=== PATIENT | female | born 1930 | race Caucasian/White ===

== ENCOUNTER 2016-07-25 17:17 | Inpatient (IN) | payer OTHER ==
[~2016-07-25] VITALS: Ht 154.9 cm; Wt 68.1 kg
[~2016-07-25 17:17] MED LIST: ACET-1311 PO; ALUMSUS17 PO; ATOR-22 PO; BISA10SU38 PR; CALC-46 PO; CLOP1TAB15 PO; CMD3 PO; CPR500 PO; CRG25 PO; HMLI SQ; INSDGI PO; ISOS-10 PO; LATA0.5S OPB; LCTX PO; LOSA100T65 PO; LSN20 PO; MOML PO; NTRGSL/4 UT; OMEP20CA9 PO
--- NOTE | 2016-07-25 17:25 | EMERGENCY ROOM VISIT NOTE ---
History Report prepared by Danelle: Blanca Cruz Under the Supervision of: Dr. Gerald Solano M.D. First contact with patient: 17:17 Stated Complaint: HYPERGLYCEMIA/AMS, [facility] History of Present Illness The patient is a 86 year old female who presents to the Emergency Room for evaluation of altered mental status. Normal self this morning and interactive however this afternoon found tired and not talking. Coming from [facility]. She was found to have blood sugar of "High" and thus given 4 Units subq insulin. With blood sugars not improving she was sent to ED via EMS for further evaluation. Prior to leaving temperature was noted to be 100.7F. No other medications given. Patient unable to given ROS. No further information available about this event. No treatments en route to hospital. 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 Past Medical & Surgical Medical Problems: (1) Alzheimer disease (2) CAD (coronary artery disease) (3) CHF (congestive heart failure) (4) CKD (chronic kidney disease), stage III (5) CVA (cerebral vascular accident) (6) History of Coumadin therapy (7) HLD (hyperlipidemia) (8) HTN (hypertension) (9) Hypothyroidism (10) IDDM (insulin dependent diabetes mellitus) (11) Pacemaker (12) PAF (paroxysmal atrial fibrillation) Surgical Problems: (1) H/O: hysterectomy (2) History of appendectomy (3) History of back surgery (4) History of cholecystectomy Family History Unobtainable Social History Smoking Status: Never Smoker Alcohol Use: none Housing Status: [facility] Occupation Status: retired Current/Historical Medications Scheduled Alum & Mag Hydrox-Simethicone (Rulox), 2 TBS PO QID Atorvastatin (Lipitor), 20 MG PO QPM Calcium Carbonate-Vitamin D (Oyster Shell Calcium/D), 1 TAB PO DAILY Carvedilol (Carvedilol), 25 MG PO Q12 Cholecalciferol (Vitamin D3), 1,000 INTER.UNIT PO QAM Citalopram Hydrobromide (Celexa), 5 MG PO DAILY Clopidogrel (Plavix), 75 MG PO DAILY Dicyclomine Hcl (Dicyclomine Hcl), 10 MG PO QID Furosemide (Furosemide), 20 MG PO QAM Insulin Aspart (Novolog), 6 UNITS SQ LUNCH Insulin Aspart (Novolog), 4 UNITS SQ BID Insulin Glargine (Lantus), 12 UNITS SQ HS Isosorbide Mononitrate (Isosorbide Mononitrate ER), 60 MG PO QAM Latanoprost (Xalatan 0.005% Oph Patti), 1 DROP OPB QPM Levothyroxine Sodium (Synthroid), 50 MCG PO QAM Lisinopril (Lisinopril), 20 MG PO QAM Loratadine (Claritin), 10 MG PO DAILY Losartan Potassium (Cozaar), 100 MG PO HS Nitroglycerin (Nitrostat), 0.4 MG UT PRN Potassium Chloride (Klor-Con M20), 20 MEQ PO QAM Ranitidine (Zantac), 150 MG PO BID Warfarin Sod (Coumadin), 2 TAB PO DAILY Warfarin Sod (Coumadin), 2.5 MG PO UD Scheduled PRN Acetaminophen (Tylenol), 650 MG PO Q4 PRN for Pain Alum & Mag Hydrox-Simethicone (Maalox Advanced), 30 ML PO ACHS PRN for INDIGESTION Allergies Coded Allergies: Aspirin (Verified Allergy, Intermediate, unknown, 07/25/16) Codeine (Verified Allergy, Intermediate, unknown, 07/25/16) Red Dye (Verified Allergy, Intermediate, unknown, 07/25/16) Yellow Dye (Verified Allergy, Intermediate, unknown, 07/25/16) Adhesives (Verified Allergy, Unknown, TAPE, 07/25/16) Morphine (Unverified Allergy, Unknown, UNKNOWN, 07/25/16) Physical Exam Vital Signs Date Time Temp Pulse Resp B/P Pulse Ox O2 Delivery O2 Flow Rate FiO2 07/25/16 19:03 70 20 209/72 07/25/16 18:31 70 218/175 94 3.0 07/25/16 17:59 197/103 07/25/16 17:47 70 26 07/25/16 17:44 92 Nasal Cannula 3.0 07/25/16 17:44 86 Room Air 07/25/16 17:37 37.5 70 22 192/156 92 Nasal Cannula 3.0 07/25/16 17:31 192/156 07/25/16 17:29 70 Physical Exam GENERAL: Patient is chronically unwell appearing. Looking around room. HEENT: No acute trauma, normocephalic atraumatic, mucous membranes moist, no nasal congestion, no scleral icterus. NECK: No stridor, no adenopathy, no meningismus, trachea is midline. LUNGS: No dyspnea. Clear to auscultation and equal bilaterally. No wheeze, no rhonchi. HEART: Regular rate and rhythm. No murmurs, rubs, gallops appreciated. ABDOMEN: Soft, nontender, bowel sounds positive, no masses appreciated, no peritonitis. BACK: No midline tenderness, no CVA tenderness EXTREMITIES: No cyanosis, no edema other than some lateral right foot/ankle swelling underlying bruising NEUROLOGIC: Appears confused, awake, looking around room, non-verbal, not moving extremities, unable to accurately assess for acute motor or sensory deficits, no focal weakness, cranial nerves grossly intact. SKIN: Bilateral lateral foot bruising, no rash, no jaundice, no diaphoresis. Medical Decision & Procedures ER Provider Diagnostic Interpretation: Radiology results and stated below per my review and radiologist interpretation: CT OF THE HEAD WITHOUT CONTRAST CLINICAL HISTORY: Altered mental status. Hyperglycemia. COMPARISON STUDY: Head CT May 04, 2014. CT DOSE: 537.48 mGy.cm TECHNIQUE: Helical axial images of the head were obtained without IV contrast. Automated exposure control was utilized for the study. FINDINGS: No acute intracranial hemorrhage, midline shift or mass effect is present. Ventricular system is stable. Basilar cisterns are patent. There are no extra-axial collections. A 1.2 cm hypodensity within the right basal ganglia is new since prior exam of May 04, 2014. There is an old lacunar infarct within left basal ganglia. There are no CT findings to suggest acute dural sinus thrombosis or acute territorial infarct. There are no significant calvarial abnormalities. Visual portions of the sinuses and the mastoid air cells are clear. IMPRESSION: 1. No acute intracranial hemorrhage or mass effect. 2. 1.2 cm hypodensity within the right basal ganglia. This lacunar infarct is age-indeterminate but likely subacute to chronic. Electronically signed by: Farshad Brewer M.D. 07/25/2016 6:38 PM Dictated Date/Time: 07/25/2016 6:36 PM CHEST ONE VIEW PORTABLE CLINICAL HISTORY: Altered mental status. COMPARISON STUDY: Chest radiograph May 04, 2014. FINDINGS: A dual lead left pacemaker is in place. Mild left basilar opacity favors atelectasis. Moderate cardiomegaly is noted. There is no evidence of pulmonary edema. There is no pneumothorax or pleural effusion. IMPRESSION: 1. Stable cardiomegaly. Pulmonary vascular congestion without evidence of pulmonary edema. 2. Left basilar opacities suggestive of atelectasis. Electronically signed by: Farshad Brewer M.D. 07/25/2016 6:05 PM Dictated Date/Time: 07/25/2016 6:03 PM RIGHT FOOT MIN 3 VIEWS ROUTINE CLINICAL HISTORY: Bilateral foot bruising. COMPARISON: None FINDINGS: This exam is significantly compromised due to difficulty positioning and osteopenia. There is extensive vascular calcification. No acute fracture is identified. Moderate arthritis of the right first metatarsophalangeal joint is present. IMPRESSION: No fracture identified although sensitivity significantly diminished on this exam. Electronically signed by: Farshad Brewer M.D. 07/25/2016 7:10 PM Dictated Date/Time: 07/25/2016 7:09 PM LEFT FOOT MIN 3 VIEWS ROUTINE CLINICAL HISTORY: Bilateral bruising of feet. COMPARISON: None FINDINGS: Evaluation is compromised due to osteopenia as well as suspected chronic deformity of the toes which makes evaluation of the toes is very difficult. No fracture is identified. There is moderate plantar calcaneal spurring and extensive vascular calcification. Motion artifact on lateral projection is noted. IMPRESSION: No fracture identified within the left foot although exam significantly compromised, particularly affecting visualization of the toes, due to suspected chronic deformity of the toes. Electronically signed by: Farshad Brewer M.D. 07/25/2016 7:12 PM Dictated Date/Time: 07/25/2016 7:10 PM Laboratory Results 07/25/16 17:55 Red Blood Count 4.01, Mean Corpuscular Volume 102.5, Mean Corpuscular Hemoglobin 33.4, Mean Corpuscular Hemoglobin Concent 32.6, Mean Platelet Volume 11.1, Neutrophils (%) (Auto) 74.6, Lymphocytes (%) (Auto) 14.0, Monocytes (%) ( Auto) 11.1, Eosinophils (%) (Auto) 0.0, Basophils (%) (Auto) 0.1, Neutrophils # (Auto) 6.50, Lymphocytes # (Auto) 1.22, Monocytes # (Auto) 0.97, Eosinophils # ( Auto) 0.00, Basophils # (Auto) 0.01 07/25/16 17:55 Test 07/25/16 17:51 07/25/16 17:53 07/25/16 17:55 07/25/16 17:57 Procalcitonin 0.10 ng/mL (0-0.5) Bedside Lactic Acid Venous 3.24 mmol/L (0.90-1.70) White Blood Count 8.72 K/uL (4.8-10.8) Red Blood Count 4.01 M/uL (4.2-5.4) Hemoglobin 13.4 g/dL (12.0-16.0) Hematocrit 41.1 % (37-47) Mean Corpuscular Volume 102.5 fL (80-100) Mean Corpuscular Hemoglobin 33.4 pg (25-34) Mean Corpuscular Hemoglobin Concent 32.6 g/dl (32-36) Platelet Count 173 K/uL (130-400) Mean Platelet Volume 11.1 fL (7.4-10.4) Neutrophils (%) (Auto) 74.6 % Lymphocytes (%) (Auto) 14.0 % Monocytes (%) (Auto) 11.1 % Eosinophils (%) (Auto) 0.0 % Basophils (%) (Auto) 0.1 % Neutrophils # (Auto) 6.50 K/uL (1.4-6.5) Lymphocytes # (Auto) 1.22 K/uL (1.2-3.4) Monocytes # (Auto) 0.97 K/uL (0.11-0.59) Eosinophils # (Auto) 0.00 K/uL (0-0.5) Basophils # (Auto) 0.01 K/uL (0-0.2) Bedside Hemoglobin 13.3 g/dl (12.0-16.0) Bedside Hematocrit 39 % (37-47) RDW Standard Deviation 56.4 fL (36.4-46.3) RDW Coefficient of Variation 15.1 % (11.5-14.5) Immature Granulocyte % (Auto) 0.2 % Immature Granulocyte # (Auto) 0.02 K/uL (0.00-0.02) Prothrombin Time 25.6 SECONDS (9.0-12.0) Prothromb Time International Ratio 2.3 (0.9-1.1) Activated Partial Thromboplast Time 31.5 SECONDS (21.0-31.0) Partial Thromboplastin Ratio 1.2 Bedside Sodium 155 mEq/L (135-144) Bedside Potassium 4.3 mEq/L (3.3-5.0) Bedside Chloride 116 mEq/L (101-112) Bedside Total CO2 24 mEq/l (24-31) Anion Gap 20.0 mmol/L (16-25) Bedside Blood Urea Nitrogen 40 mg/dl (7-18) Bedside Creatinine 1.4 mg/dl (0.6-1.3) Estimated GFR () 28.6 Estimated GFR (Non- 24.7 BUN/Creatinine Ratio 21.5 (10-20) Bedside Glucose (other) 487 mg/dl (70-99) Calcium Level 9.9 mg/dl (8.5-10.1) Bedside Ionized Calcium (Betzaida) 1.18 mmol/l (1.12-1.32) Magnesium Level 2.3 mg/dl (1.8-2.4) Total Bilirubin 0.7 mg/dl (0.2-1) Direct Bilirubin 0.2 mg/dl (0-0.2) Aspartate Amino Transf (AST/SGOT) 26 U/L (15-37) Alanine Aminotransferase (ALT/SGPT) 39 U/L (12-78) Alkaline Phosphatase 130 U/L (45-117) Troponin I 0.454 ng/ml (0-0.045) Total Protein 7.8 gm/dl (6.4-8.2) Albumin 3.7 gm/dl (3.4-5.0) Beta-Hydroxybutyric Acid 2.05 mg/dL (0.2-2.81) Urine Color YELLOW Urine Appearance CLEAR (CLEAR) Urine pH 5.0 (4.5-7.5) Urine Specific [place] 1.034 (1.000-1.030) Urine Protein TRACE (NEG) Urine Glucose (UA) 3+ (NEG) Urine Ketones NEG (NEG) Urine Occult Blood TRACE (NEG) Urine Nitrite NEG (NEG) Urine Bilirubin NEG (NEG) Urine Urobilinogen NEG (NEG) Urine Leukocyte Esterase NEG (NEG) Urine WBC (Auto) 1-5 /hpf (0-5) Urine RBC (Auto) 0-4 /hpf (0-4) Urine Hyaline Casts (Auto) 1-5 /lpf (0-5) Urine Epithelial Cells (Auto) >30 /lpf (0-5) Urine Bacteria (Auto) 1+ (NEG) Laboratory results as reviewed by me. Medications Administered Medications (Trade) Dose Ordered Sig/Karlee Route Start Time Stop Time Status Last Admin Dose Admin Labetalol HCl 10 mg 10 mg NOW STAT IV 07/25/16 17:46 07/25/16 17:47 DC 07/25/16 18:05 10 MG Sodium Chloride 1,000 ml @ 75 mls/hr [id number] STAT IV 07/25/16 17:47 07/25/16 21:33 DC 07/25/16 18:03 75 MLS/HR Sodium Chloride (Nss 1000ml) 1,000 ml @ 999 mls/hr Q1H1M STAT IV 07/25/16 18:00 07/25/16 19:00 DC 07/25/16 18:00 999 MLS/HR Labetalol HCl 10 mg 10 mg NOW STAT IV 07/25/16 18:42 07/25/16 18:43 DC 07/25/16 19:01 10 MG Insulin Human Regular/Syringe (novoLIN-R U-100 PER UNIT/Syringe) 6 ml @ 30 mls/min TODAY@1915 IV 07/25/16 19:15 07/25/16 19:16 DC 07/25/16 19:15 30 MLS/MIN ECG Indication: altered mental status Rate (beats per minute): 70 Rhythm: other (atrial paced) Findings: T-wave inversion (Lateral), no acute ischemic change, no ectopy, other (prolonged [place] ) Comparison ECG Date: 05/04/2014 Change: T-wave inversions are new. ED Course 1716: The patient was evaluated in room C4. A complete history and physical exam was performed. 1746: Labetalol HCl 10 mg IV 1747: NSS 1000 ml @ 75 mls/hr IV 1800: NSS 1000 ml @ 999 mls/hr IV 184: Labetalol HCl 10 mg IV 190: I reassessed the patient and she is resting comfortably. 1914: Insulin Human Regular 6 ml @ 30 mls/min IV 1920: I spoke with Dr. Puente. We discussed the patient's results and treatment plan. [facility]. Medical Decision Differential: Toxicological, Infectious, Stroke, SAH, Trauma, Electrolyte Abnormality, Hypoglycemia, Alcohol Intoxication, Drug Intoxication, Cardiac Abnormality, Sepsis, Meningitis/Encephalitis, Trauma, Excited Delirium, Serotonin Syndrome, Psychiatric, amongst other pathologies entertained. Unwell appearing 86 yr old female arrives for evaluation of ams with hyperglycemia. 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 She is quite hyperglycemic. Lactic acid elevated of uncertain etiology, be it infectious or dehydration/hyperglycemic in nature. Na quite elevated as well (and likely higher given hyperglycemia) further consistent with dehydration. Would avoid over hydration with NSS just to avoid electrolyte delta along with overload of fluid. No acute infectious findings in UA or CXR. She doesn't appear meningitic. WBC is unremarkable. She is quite hypertensive and BP remains elevated after 2 round labetalol. Will bring in for further work-up and evaluation. Without clear infection will hold on empiric abx, but blood cultures were sent. Consults Time Called: 1901 Consulting Physician: Dr. Puente Returned Call: [address] Puente. We discussed the patient's results and treatment plan. [facility]. Impression Primary Impression: Altered mental status Additional Impressions: Hyperglycemia Hypertension Lactic acidosis Hypernatremia Scribe Attestation The scribe's documentation has been prepared under my direction and personally reviewed by me in its entirety. I confirm that the note above accurately reflects all work, treatment, procedures, and medical decision making performed by me. Departure Information Dispostion Being Evaluated By Hospitalist Referrals Nicolás Hogue M.D. (PCP) Problem Qualifiers Primary Impression: Altered mental status Altered mental status type: unspecified Qualified Codes: R41.82 - Altered mental status, unspecified Additional Impressions: Hypertension Hypertension type: unspecified secondary hypertension Qualified Codes: I15.9 - Secondary hypertension, unspecified
[2016-07-25] MEDS ORDERED: LABETALOL HCL IV 5 MG/ML 20ML IV STA ×2 (17:46→18:42)
[2016-07-25] MEDS ORDERED: SODIUM CHLORIDE 0.9% 1000ML 1,000 ML IV STA ×2 (17:47→18:00)
--- NOTE | 2016-07-25 18:07 | DIAGNOSTIC IMAGING REPORT ---
CHEST ONE VIEW PORTABLE CLINICAL HISTORY: Altered mental status. COMPARISON STUDY: Chest radiograph May 04, 2014. FINDINGS: A dual lead left pacemaker is in place. Mild left basilar opacity favors atelectasis. Moderate cardiomegaly is noted. There is no evidence of pulmonary edema. There is no pneumothorax or pleural effusion. IMPRESSION: 1. Stable cardiomegaly. Pulmonary vascular congestion without evidence of pulmonary edema. 2. Left basilar opacities suggestive of atelectasis. Electronically signed by: Farshad Brewer M.D. 07/25/2016 6:05 PM Dictated Date/Time: 07/25/2016 6:03 PM
[2016-07-25 18:09] LABS: ISTAT CREATININE 1.4 mg/dl (0.6-1.3); ISTAT HEMOGLOBIN 13.3 g/dl (12.0-16.0); ISTAT IONIZED CALCIUM 1.18 mmol/l (1.12-1.32)
[2016-07-25] MEDS ORDERED: CITA10TA8 PO (18:10)
[2016-07-25] MEDS ORDERED: DICY10CA12 PO (18:13)
[2016-07-25] MEDS ORDERED: LSX20 PO (18:13)
[2016-07-25 18:16] LABS: BASO % 0.1 %; BASO ABS # 0.01 K/uL (0-0.2); COMPLETE YES; HEMATOCRIT 41.1 % (37-47); IG% 0.2 %; LYMPH ABS # 1.22 K/uL (1.2-3.4); MEAN CELL VOLUME 102.5 fL (80-100); MEAN CORPUSCULAR HEMOGLOBIN 33.4 pg (25-34); MEAN CORPUSCULAR HGB CONC 32.6 g/dl (32-36); MEAN PLATELET VOLUME 11.1 fL (7.4-10.4); MONO % 11.1 %; NEUT % 74.6 %; PLATELET COUNT 173 K/uL (130-400); RED BLOOD COUNT 4.01 M/uL (4.2-5.4); WHITE BLOOD COUNT 8.72 K/uL (4.8-10.8)
[2016-07-25] MEDS ORDERED: CHOL1000 PO (18:22)
[2016-07-25] MEDS ORDERED: NVLG SQ ×2 (18:22)
[2016-07-25] MEDS ORDERED: ALUM-76 PO (18:22)
[2016-07-25] MEDS ORDERED: ZNTT/150 PO (18:22)
[2016-07-25] MEDS ORDERED: SYN50 PO (18:22)
[2016-07-25] MEDS ORDERED: MCRK20 PO (18:22)
[2016-07-25] MEDS ORDERED: INSDGI SQ (18:22)
[2016-07-25] MEDS ORDERED: CLR10 PO (18:22)
[2016-07-25 18:25] LABS: INR 2.3 (0.9-1.1); PARTIAL THROMBOPLASTIN RATIO 1.2; PROTHROMBIN TIME (PATIENT) 25.6 SECONDS (9.0-12.0)
--- NOTE | 2016-07-25 18:41 | DIAGNOSTIC IMAGING REPORT ---
CT OF THE HEAD WITHOUT CONTRAST CLINICAL HISTORY: Altered mental status. Hyperglycemia. COMPARISON STUDY: Head CT May 04, 2014. CT DOSE: 537.48 mGy.cm TECHNIQUE: Helical axial images of the head were obtained without IV contrast. Automated exposure control was utilized for the study. FINDINGS: No acute intracranial hemorrhage, midline shift or mass effect is present. Ventricular system is stable. Basilar cisterns are patent. There are no extra-axial collections. A 1.2 cm hypodensity within the right basal ganglia is new since prior exam of May 04, 2014. There is an old lacunar infarct within left basal ganglia. There are no CT findings to suggest acute dural sinus thrombosis or acute territorial infarct. There are no significant calvarial abnormalities. Visual portions of the sinuses and the mastoid air cells are clear. IMPRESSION: 1. No acute intracranial hemorrhage or mass effect. 2. 1.2 cm hypodensity within the right basal ganglia. This lacunar infarct is age-indeterminate but likely subacute to chronic. Electronically signed by: Farshad Brewer M.D. 07/25/2016 6:38 PM Dictated Date/Time: 07/25/2016 6:36 PM
[2016-07-25] MEDS ORDERED: NovoLIN-R INSULIN PER UNIT CHARGE IV STA (18:43)
[2016-07-25 18:46] LABS: URINE APPEARANCE CLEAR (CLEAR); URINE BILIRUBIN NEG (NEG); URINE COLOR YELLOW; URINE EPITHELIAL CELL AUTO >30 /lpf (0-5); URINE NITRITE NEG (NEG); URINE SPECIFIC GRAVITY 1.034 (1.000-1.030); UROBILINOGEN NEG (NEG); ZZURINE CULT IF INDIC CATH YES
[2016-07-25 18:49] LABS: MANUAL MICROSCOPIC REQUIRED? NO; REVIEW REQ? NO
[2016-07-25 18:59] LABS: ALKALINE PHOSPHATASE 130 U/L (45-117); ALT/SGPT 39 U/L (12-78); AST/SGOT 26 U/L (15-37); BLOOD UREA NITROGEN 39 mg/dl (7-18); BUN/CREATININE RATIO 21.5 (10-20); CALCIUM 9.9 mg/dl (8.5-10.1); CARBON DIOXIDE 30 mmol/L (21-32); CHLORIDE 117 mmol/L (98-107); SODIUM 155 mmol/L (136-145)
[2016-07-25 19:00] LABS: GLUCOSE 498 mg/dl (70-99)
--- NOTE | 2016-07-25 19:12 | DIAGNOSTIC IMAGING REPORT ---
RIGHT FOOT MIN 3 VIEWS ROUTINE CLINICAL HISTORY: Bilateral foot bruising. COMPARISON: None FINDINGS: This exam is significantly compromised due to difficulty positioning and osteopenia. There is extensive vascular calcification. No acute fracture is identified. Moderate arthritis of the right first metatarsophalangeal joint is present. IMPRESSION: No fracture identified although sensitivity significantly diminished on this exam. Electronically signed by: Farshad Brewer M.D. 07/25/2016 7:10 PM Dictated Date/Time: 07/25/2016 7:09 PM
--- NOTE | 2016-07-25 19:14 | DIAGNOSTIC IMAGING REPORT ---
LEFT FOOT MIN 3 VIEWS ROUTINE CLINICAL HISTORY: Bilateral bruising of feet. COMPARISON: None FINDINGS: Evaluation is compromised due to osteopenia as well as suspected chronic deformity of the toes which makes evaluation of the toes is very difficult. No fracture is identified. There is moderate plantar calcaneal spurring and extensive vascular calcification. Motion artifact on lateral projection is noted. IMPRESSION: No fracture identified within the left foot although exam significantly compromised, particularly affecting visualization of the toes, due to suspected chronic deformity of the toes. Electronically signed by: Farshad Brewer M.D. 07/25/2016 7:12 PM Dictated Date/Time: 07/25/2016 7:10 PM
[2016-07-25 19:15] LABS: BETA-HYDROXYBUTYRATE 2.05 mg/dL (0.2-2.81)
[2016-07-25] MEDS ORDERED: INSULIN HUMAN REGULAR PER UNIT 6 UNITS in SYRINGE 5.94 ML IV SCH (19:15)
[2016-07-25] MEDS ORDERED: CMD/25 PO ×2 (20:15)
[2016-07-25] MEDS ORDERED: ACETAMINOPHEN 325 MG TAB PO PRN (20:30)
[2016-07-25] MEDS ORDERED: ONDANSETRON INJ 2 MG/ML 2 ML VIAL IV PRN (20:30)
[2016-07-25] MEDS ORDERED: NITROGLYCERIN 0.4 MG SL PER TAB CHARGE SL PRN (20:30)
[2016-07-25] MEDS ORDERED: PHARMACY GLYCEMIC MGMT CONSULT SCH (20:47)
[2016-07-25] MEDS ORDERED: GLUCOSE 10 TABS/TUBE PO PRN (21:00)
[2016-07-25] MEDS ORDERED: DEXTROSE 50% 50 ML SYR IV PRN (21:00)
[2016-07-25] MEDS ORDERED: GLUCAGON FOR INJ 1 MG VIAL SQ PRN (21:00)
[2016-07-25] MEDS ORDERED: DICYCLOMINE HCL 10 MG CAP PO SCH (21:00)
[2016-07-25] MEDS ORDERED: PHARMACY GLYCEMIC MGMT CONSULT PRN (21:00)
[2016-07-25] MEDS ORDERED: GLUCOSE 40% GEL 15 GM TUBE PO PRN (21:00)
[2016-07-25] MEDS ORDERED: LABETALOL HCL IV 5 MG/ML 20ML IV PRN (21:00)
[2016-07-25 21:13] LABS: ALLEN TEST POS (POS); ARTERIAL BLD GAS O2 SATURATION 90.8 % (90-95); ARTERIAL BLOOD GAS BASE EXCESS 2.1 mEq/L (-9-1.8); ARTERIAL BLOOD GAS HCO3 26 mmol/L (19-24); ARTERIAL BLOOD GAS PO2 65 mmHg (80-95); ARTERIAL BLOOD GAS pH 7.46 (7.35-7.45); O2 ADMINISTRATION 2.5L O2
--- NOTE | 2016-07-25 21:15 | History and Physical ---
History & Physical Date & Time of Service: Jul 25, 2016 at 20:54 Chief Complaint: Hyperglycemia/Ams, [place] Primary Care Physician: Nicolás Hogue M.D. History of Present Illness Source: patient, family, clinic records, hospital records, retirement Patient seen and examined. 86 year old female with PMHx of IDDM, HTN, PAF, CAD, HTN, CKD stage 3, Alzheimer's disease and other problems listed below presents to the ED from [facility] with AMS and hyperglycemia. When speaking with the patient she is lethargic, she does not follow commands and she states she feels terrible. Radha Gleason reports that the patient was feeling like herself this AM. She was talking with staff eating breakfast and following commands. Throughout the day she became more and more lethargic and BSG started reading "high." She spiked a temp of 100.6 and was evaluated by Radha GUILLORY and was referred to the ED for further workup. In the ED patient is hypertensive with SBP >200, CT head is negative for acute changes, Na+ is 155, BSG is 498, Crea 1.8, Lactate is 3.24. Troponin is 0.454. She received Labetolol, Insulin and IVFs. BP has improved. She will be admitted for further workup and treatment. 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 Social History Smoking Status: Unknown if Ever Smoked Housing status: retirement Occupational Status: retired Allergies Coded Allergies: Aspirin (Verified Allergy, Intermediate, unknown, 4/13/17) Codeine (Verified Allergy, Intermediate, unknown, 07/25/16) Red Dye (Verified Allergy, Intermediate, unknown, 07/25/16) Yellow Dye (Verified Allergy, Intermediate, unknown, 07/25/16) Adhesives (Verified Allergy, Unknown, TAPE, 07/25/16) Morphine (Unverified Allergy, Unknown, UNKNOWN, 07/25/16) Home Medications Scheduled Alum & Mag Hydrox-Simethicone (Rulox), 2 TBS PO QID Atorvastatin (Lipitor), 20 MG PO QPM Calcium Carbonate-Vitamin D (Oyster Shell Calcium/D), 1 TAB PO DAILY Carvedilol (Carvedilol), 25 MG PO Q12 Cholecalciferol (Vitamin D3), 1,000 INTER.UNIT PO QAM Citalopram Hydrobromide (Celexa), 5 MG PO DAILY Clopidogrel (Plavix), 75 MG PO DAILY Dicyclomine Hcl (Dicyclomine Hcl), 10 MG PO QID Furosemide (Furosemide), 20 MG PO QAM Insulin Aspart (Novolog), 6 UNITS SQ LUNCH Insulin Aspart (Novolog), 4 UNITS SQ BID Insulin Glargine (Lantus), 12 UNITS SQ HS Isosorbide Mononitrate (Isosorbide Mononitrate ER), 60 MG PO QAM Latanoprost (Xalatan 0.005% Oph Patti), 1 DROP OPB QPM Levothyroxine Sodium (Synthroid), 50 MCG PO QAM Lisinopril (Lisinopril), 20 MG PO QAM Loratadine (Claritin), 10 MG PO DAILY Losartan Potassium (Cozaar), 100 MG PO HS Nitroglycerin (Nitrostat), 0.4 MG UT PRN Potassium Chloride (Klor-Con M20), 20 MEQ PO QAM Ranitidine (Zantac), 150 MG PO BID Warfarin Sod (Coumadin), 2 TAB PO DAILY Warfarin Sod (Coumadin), 2.5 MG PO UD Scheduled PRN Acetaminophen (Tylenol), 650 MG PO Q4 PRN for Pain Alum & Mag Hydrox-Simethicone (Maalox Advanced), 30 ML PO ACHS PRN for INDIGESTION Review of Systems Unable to assess d/t mental status Physical Exam Vital Signs Date Time Temp Pulse Resp B/P Pulse Ox O2 Delivery O2 Flow Rate FiO2 07/25/16 20:47 72 19 179/74 93 Nasal Cannula 3.0 07/25/16 19:03 70 20 209/72 07/25/16 18:31 70 218/175 94 3.0 07/25/16 17:59 197/103 07/25/16 17:47 70 26 07/25/16 17:44 92 Nasal Cannula 3.0 07/25/16 17:44 86 Room Air 07/25/16 17:37 37.5 70 22 192/156 92 Nasal Cannula 3.0 07/25/16 17:31 192/156 07/25/16 17:29 70 General Appearance: + pertinent finding (Elderly 86 year old female lying in bed lethargic moaning but in no respiratory distress ) Head: normocephalic, atraumatic Eyes: PERRL, sclerae normal ENT: normal ENT inspection Neck: supple, no JVD Respiratory/Chest: chest non-tender, lungs clear, normal breath sounds, no respiratory distress, no accessory muscle use Cardiovascular: regular rate, rhythm, no gallop, no JVD, no murmur, normal peripheral pulses Abdomen/GI: normal bowel sounds, non tender, soft Extremities/Musculoskelatal: no calf tenderness, normal capillary refill, + pedal edema (+1) Neurologic/Psych: + pertinent finding (Lethargic, does not follow commands, moaning, spontaneously moves all extremities ) Skin: + pertinent finding (scattered ecchymosis ) Lymphatic: no adenopathy Diagnostics Laboratory Results Results Past 24 Hours Test 07/25/16 17:51 07/25/16 17:53 07/25/16 17:55 07/25/16 17:57 Range/Units Bedside Lactic Acid Venous 3.24 0.90-1.70 mmol/L White Blood Count 8.72 4.8-10.8 K/uL Red Blood Count 4.01 4.2-5.4 M/uL Hemoglobin 13.4 12.0-16.0 g/dL Hematocrit 41.1 37-47 % Mean Corpuscular Volume 102.5 80-100 fL Mean Corpuscular Hemoglobin 33.4 25-34 pg Mean Corpuscular Hemoglobin Concent 32.6 32-36 g/dl Platelet Count 173 130-400 K/uL Mean Platelet Volume 11.1 7.4-10.4 fL Neutrophils (%) (Auto) 74.6 % Lymphocytes (%) (Auto) 14.0 % Monocytes (%) (Auto) 11.1 % Eosinophils (%) (Auto) 0.0 % Basophils (%) (Auto) 0.1 % Neutrophils # (Auto) 6.50 1.4-6.5 K/uL Lymphocytes # (Auto) 1.22 1.2-3.4 K/uL Monocytes # (Auto) 0.97 0.11-0.59 K/uL Eosinophils # (Auto) 0.00 0-0.5 K/uL Basophils # (Auto) 0.01 0-0.2 K/uL Bedside Hemoglobin 13.3 12.0-16.0 g/dl Bedside Hematocrit 39 37-47 % RDW Standard Deviation 56.4 36.4-46.3 fL RDW Coefficient of Variation 15.1 11.5-14.5 % Immature Granulocyte % (Auto) 0.2 % Immature Granulocyte # (Auto) 0.02 0.00-0.02 K/uL Prothrombin Time 25.6 9.0-12.0 SECONDS Prothromb Time International Ratio 2.3 0.9-1.1 Activated Partial Thromboplast Time 31.5 21.0-31.0 SECONDS Partial Thromboplastin Ratio 1.2 Bedside Sodium 155 135-144 mEq/L Sodium Level 155 136-145 mmol/L Bedside Potassium 4.3 3.3-5.0 mEq/L Potassium Level 4.0 3.5-5.1 mmol/L Bedside Chloride 116 101-112 mEq/L Chloride Level 117 98-107 mmol/L Carbon Dioxide Level 30 21-32 mmol/L Bedside Total CO2 24 24-31 mEq/l Anion Gap 20.0 16-25 mmol/L Bedside Blood Urea Nitrogen 40 7-18 mg/dl Blood Urea Nitrogen 39 7-18 mg/dl Creatinine 1.80 0.60-1.20 mg/dl Bedside Creatinine 1.4 0.6-1.3 mg/dl Estimated GFR () 28.6 Estimated GFR (Non- 24.7 BUN/Creatinine Ratio 21.5 10-20 Bedside Glucose (other) 487 70-99 mg/dl Random Glucose 498 70-99 mg/dl Calcium Level 9.9 8.5-10.1 mg/dl Bedside Ionized Calcium (Betzaida) 1.18 1.12-1.32 mmol/l Magnesium Level 2.3 1.8-2.4 mg/dl Total Bilirubin 0.7 0.2-1 mg/dl Direct Bilirubin 0.2 0-0.2 mg/dl Aspartate Amino Transf (AST/SGOT) 26 15-37 U/L Alanine Aminotransferase (ALT/SGPT) 39 12-78 U/L Alkaline Phosphatase 130 45-117 U/L Troponin I 0.454 0-0.045 ng/ml Total Protein 7.8 6.4-8.2 gm/dl Albumin 3.7 3.4-5.0 gm/dl Beta-Hydroxybutyric Acid 2.05 0.2-2.81 mg/dL Urine Color YELLOW Urine Appearance CLEAR CLEAR Urine pH 5.0 4.5-7.5 Urine Specific [place] 1.034 1.000-1.030 Urine Protein TRACE NEG Urine Glucose (UA) 3+ NEG Urine Ketones NEG NEG Urine Occult Blood TRACE NEG Urine Nitrite NEG NEG Urine Bilirubin NEG NEG Urine Urobilinogen NEG NEG Urine Leukocyte Esterase NEG NEG Urine WBC (Auto) 1-5 0-5 /hpf Urine RBC (Auto) 0-4 0-4 /hpf Urine Hyaline Casts (Auto) 1-5 0-5 /lpf Urine Epithelial Cells (Auto) >30 0-5 /lpf Urine Bacteria (Auto) 1+ NEG Test 07/25/16 19:08 07/25/16 20:15 Range/Units Bedside Glucose 285 70-90 mg/dl Microbiology Results 07/25/16 Blood Culture, Received Pending 07/25/16 Blood Culture, Received Pending 07/25/16 Urine Culture, Received Pending Diagnostic Radiology FOOT XR Per radiologist read: IMPRESSION: No fracture identified within the left foot although exam significantly compromised, particularly affecting visualization of the toes, due to suspected chronic deformity of the toes. FOOT XR Per radiologist read: IMPRESSION: IMPRESSION: 1. No acute intracranial hemorrhage or mass effect. 2. 1.2 cm hypodensity within the right basal ganglia. This lacunar infarct is age-indeterminate but likely subacute to chronic. No fracture identified although sensitivity significantly diminished on this exam. CT HEAD Per radiologist read: CXR Per radiologist read: IMPRESSION: 1. Stable cardiomegaly. Pulmonary vascular congestion without evidence of pulmonary edema. 2. Left basilar opacities suggestive of atelectasis. EKG 70 BPM, Atrial Paced LAD, QTc 490 Impression Assessment and Plan 86 year old female presents to the ED with AMS, hyperglycemia from [facility] ALTERED MENTAL STATUS -Admit to tele -? cause, Patient with underlying Alzheimer's usually A&Ox2, now lethargic oriented to person. Does not give any history and moans with any touch to the skin. Likely multifactorial secondary to hyperglycemia, Hypernatremia, hypertensive urgency. Management for each as outlined below. Consider underlying infection - Lactate elevated reports of fever at [facility]. No leukocytosis, no clear source of infection. Will check Procalcitonin and if elevated will start Abx. CT head negative for acute changes. Spoke with patient' s daughter/POA Etta Frank [phone], she is updated on patient's current clinical status. -Patient seen and discussed with attending physician Dr. Olson. Please see his addendum for further management. IDDM WITH HYPERGLYCEMIA -BSG around 500 at arrival -Now in the 200s, no AG, Bicarb normal -ABG pending -BSG now in the 200s -Lantus 5Units BID -SSI coverage -Pharmacy consult for glycemic control -Update A1c HYPERNATREMIA -155, likely secondary to dehydration -Give 1/2 NSS at 100ml/hr -Repeat at PRP at 2359 HYPERTENSIVE URGENCY -SBP >200 at times -CT head negative -Responding well to Labetalol -Continue Carvedilol -Hold Lasix, Lisinopril, Losartan for ASHLEY -Labetalol prn SBP >180 ELEVATED LACTATE -? Cause, no clear source of infection, no leukocytosis -Check procalcitonin, if elevated will start empiric Abx -IVF hydration -Repeat Lactate ELEVATED TROPONIN -h/o CAD -Troponin 0.454, EKG paced rhythm -no complaints of chest pain per [facility] -Serial troponin, EKGs -Continue BB, Plavix, Statin, Imdur -Aspirin on ALLERGY list -monitor in tele ACUTE ON CHRONIC KIDNEY DISEASE STAGE 3 -Crea 1.8 baseline near 1 -likely secondary to dehydration -IVF hydration -hold diuretics -follow PRP PAROXYSMAL AFIB -S/P Pacemaker -continue BB, Coumadin H/O DIASTOLIC CHF -Appears dry with ASHLEY, Hypernatremia -Hold lasix -IVF hydration HYPOTHYROIDISM -continue Synthroid ALZHEIMER'S DISEASE -At baseline a&o x 2 -hold Celexa for prolonged QTc GERD -continue [id number] NUTRITION -npo except meds for now -when mental status improves, mechanical soft diet with nectar thick liquids per [facility] DVT PROPHYLAXIS: Coumadin CODE STATUS: LEVEL 5 DNR per my discussion with the patient's daughter who is POA DISPO:In my clinical judgment this beneficiary meets acute admission criteria, established by [facility], that includes being hospitalized through two midnights. Discharge planning eval Patient seen in collaboration with Dr. Olson Pt seen and examined. Agreed with Esha GUILLORY's physical exam, assessment and plan. 86 year old female with PMHx of IDDM, HTN, PAF, CAD, HTN, CKD stage 3, Alzheimer's disease was sent to the ED from [facility] with changed in mental status and hyperglycemia. Pt said that she feels terrible. she is very drowsy. She had a fever with temp above 100 and BS was in the 400's. General- lethargy Head- atraumatic Eyes- PERRL, EOMI ENT- oropharynx clear Neck- supple, no JVD Lungs- clear to auscultation and percussion Heart- regular rhythm; no murmur Abdomen- normal bowel sounds, soft Extremities- no calf tenderness A/p ALTERED MENTAL STATUS Possible related to hypernatremia vs hyperglycemia vs hypertensive urgency or infection CT head negative for acute finding will do neuro check HYPERNATREMIA Na on admission was 155 Received NS IVF in the ER will change IVF to 1/2NS Repeat bmp in 6 hrs IDDM WITH HYPERGLYCEMIA Lantus 5Units BID SSI coverage Pharmacy consult for glycemic control ELEVATED TROPONIN possible related to elevated creatine asymptomatic follow cardiac market, if troponin continue to elevate, will start on heparin drip Continue BB, Plavix, Statin, Imdur check EKG in am EKG, imaging, Lab reviewed Please refer to Esha GUILLORY's documentation for other problems Aminata Olson MD VTE Prophylaxis VTE Risk Assessment Done? Y/N: Yes Risk Level: Moderate
[2016-07-25 21:17] VITALS: BP 197/69; PULSE 69; TEMP 37; O2SAT 94; BMI 26.5
[2016-07-25] MEDS: INSULIN GLARGINE SOLOSTAR 100 UNITS/ML 3 ML PEN SC SCH (22:13)
[2016-07-25] MEDS: LATANOPROST 0.005% OP SOLN 2.5 ML BTL OPB SCH (22:13)
[2016-07-25] MEDS: INSULIN ASPART 100 UNITS/ML 3 ML PEN SC SCH (22:14)
[2016-07-25] MEDS: CARVEDILOL 25 MG TAB PO SCH (22:14)
[2016-07-25] MEDS: SODIUM CHLORIDE 0.45% 1000ML 1,000 ML IV SCH (22:14)
[2016-07-25] MEDS: ATORVASTATIN 20 MG TAB PO SCH (22:15)
[2016-07-25] MEDS: RANITIDINE HCL 150 MG TAB PO SCH (22:15)
[2016-07-25 23:37] VITALS: BP 139/66; PULSE 69; TEMP 37.2; O2SAT 100
[2016-07-26] VITALS (10 sets, daily range): BP systolic 114–187; BP diastolic 67–81; PULSE 69–79; TEMP 36.8–37.2; O2SAT 93–100; Ht 154.9 cm; Wt 68.1 kg
[2016-07-26 00:29] LABS: BUN/CREATININE RATIO 23.3 (10-20); CALCIUM 9.1 mg/dl (8.5-10.1); CREATININE 1.5 mg/dl (0.60-1.20); POTASSIUM 3.8 mmol/L (3.5-5.1)
[2016-07-26] MEDS ORDERED: INSULIN ASPART 100 UNITS/ML 3 ML PEN SC ONE (02:00)
[2016-07-26] MEDS: LEVOTHYROXINE 50 MCG TAB PO SCH (06:00)
[2016-07-26 06:24] LABS: INR 2.7 (0.9-1.1); PROTHROMBIN TIME (PATIENT) 30.4 SECONDS (9.0-12.0)
[2016-07-26 06:44] LABS: ESTIMATED AVERAGE GLUCOSE 194 mg/dl; HA1C FLAG Normal (Normal)
[2016-07-26] MEDS: INSULIN ASPART 100 UNITS/ML 3 ML PEN SC SCH ×3 (07:00→16:15)
[2016-07-26 07:01] LABS: BUN/CREATININE RATIO 27.3 (10-20); CALCIUM 9.3 mg/dl (8.5-10.1); CREATININE 1.3 mg/dl (0.60-1.20); MAGNESIUM 2.2 mg/dl (1.8-2.4); POTASSIUM 4.2 mmol/L (3.5-5.1)
[2016-07-26 07:12] LABS: BASO % 0.2 %; BASO ABS # 0.02 K/uL (0-0.2); COMPLETE YES; EOS % 1.1 %; IG% 0.2 %; LYMPH % 14.5 %; LYMPH ABS # 1.42 K/uL (1.2-3.4); MEAN CELL VOLUME 104.7 fL (80-100); MEAN CORPUSCULAR HEMOGLOBIN 33.2 pg (25-34); MEAN CORPUSCULAR HGB CONC 31.8 g/dl (32-36); MEAN PLATELET VOLUME 10.9 fL (7.4-10.4); MONO % 8.9 %; NEUT % 75.1 %; PLATELET COUNT 141 K/uL (130-400); RED BLOOD COUNT 3.82 M/uL (4.2-5.4); WHITE BLOOD COUNT 9.81 K/uL (4.8-10.8)
[2016-07-26 07:41] LABS: CKMB/CK RATIO 1.8 (0-3.0)
[2016-07-26] MEDS: SODIUM CHLORIDE 0.45% 1000ML 1,000 ML IV SCH ×2 (07:47→18:29)
[2016-07-26] MEDS: CLOPIDOGREL BISULFATE 75 MG TAB PO SCH (07:47)
[2016-07-26] MEDS: ISOSORBIDE MONONITRATE 60 MG TABCR PO SCH (07:47)
[2016-07-26] MEDS: CARVEDILOL 25 MG TAB PO SCH ×2 (07:47→19:58)
[2016-07-26] MEDS: RANITIDINE HCL 150 MG TAB PO SCH ×2 (07:47→19:58)
[2016-07-26] MEDS: INSULIN GLARGINE SOLOSTAR 100 UNITS/ML 3 ML PEN SC SCH ×2 (07:48→21:55)
--- NOTE | 2016-07-26 07:56 | NEPHROLOGY CONSULTATION ---
DATE OF CONSULTATION: 07/26/2016 ATTENDING OF RECORD: Dr. Kumar. REASON FOR CONSULTATION: Hypernatremia. HISTORY OF PRESENT ILLNESS: This is an 86-year-old female who is a level 5 DNR/DNI, who was at [facility] and presented with altered mental status and found to have a sodium level that was elevated at 159 and blood sugar that was also elevated at 500. The patient also had elevated blood pressures of 192/[address] up to 218/175. The patient's blood pressures have improved. Blood sugars have also improved and currently receiving half normal saline to help provide volume as well as improvement in the sodium levels. The patient made eye contact with me, but unable to provide any history at this time and was unable to say her name. REVIEW OF SYSTEMS: Unobtainable. PAST MEDICAL HISTORY: Underlying Alzheimer disease, CKD stage III, history of CVA in the past, hyperlipidemia, hypertension, hypothyroidism, diabetes, paroxysmal AFib with a history of a pacemaker as well as being on Coumadin. PAST SURGICAL HISTORY: Appendectomy, cholecystectomy, hysterectomy, back surgery. FAMILY HISTORY: No renal disease in family. SOCIAL HISTORY: Lives in assisted, unable to give a history of previous smoking or tobacco or drugs. CURRENT MEDICATIONS: Coumadin, Plavix 75 mg daily, Imdur 60 mg daily, levothyroxine 50 mcg daily, half normal saline at 100, Lipitor 20, Coreg 25 p.o. q. 12, Xalatan eyedrops at night, Zantac 150 mg p.o. b.i.d., Lantus 5 units subQ q. 12. PHYSICAL EXAMINATION: VITAL SIGNS: Temperature 37, pulse 70, respiratory rate 20, blood pressure 114/67, satting 93% on 3 liters. GENERAL: Awake, alert, oriented x0. EYES: No scleral icterus. Mucous membranes are dry. NECK: Supple. PULMONARY: Decreased at the bases; however, poor inspiratory effort. CARDIAC: Regular rate and rhythm. ABDOMEN: Bowel sounds positive, soft, nontender. EXTREMITIES: Mild edema. NEUROLOGIC: Altered mental. Oriented x0. Did make eye contact with me, but unable to follow commands. DERMATOLOGIC: skin no obvious rash noted. LABORATORIES: Sodium level is 157, potassium 4.2, chloride is 123. Bicarb is 29, BUN is 35, creatinine is 1.3. Glucose is 177. Hemoglobin A1c is 8.4. Lactic acid is 2.2, calcium is 9.3. Mag is 2.2. Troponin 0.48. CBC is pending for this morning. On presentation, white count was 8.7, H\T\H 13 and 39, platelet counts 173. Blood gas; pH 7.46, pCO2 38, pO2 65, bicarb 26. UA shows a pH of 5, specific gravity 1.034, trace protein, 3+ glucose, trace blood, 1-5 WBCs. INR is 2.7. Urine and blood cultures are pending. IMAGING DATA: Chest x-ray shows stable cardiomegaly and there is pulmonary vascular congestion without evidence of pulmonary edema, left basilar opacity suggestive of atelectasis. Head CT shows no acute hemorrhage or mass effect. Previous old lacunar infarct, no fracture identified on the left foot. No fracture identified on the right foot. IMPRESSION AND PLAN: Chronic kidney disease stage 3 with creatinine right now of 1.3 and I would like to place Hendrix catheter to follow accurate I's and O's, with underlying lactic acidosis and hyperglycemia that has improved, and troponin leak which is stable, and altered mental status with hypernatremia currently on half normal saline. With the blood pressure stabilizing, we will continue on the half normal and recheck labs again at noon and if the sodium level has not changed significantly, I will switch to D5W now that blood sugars are under better control. I appreciate consultation. ROEL
[2016-07-26] MEDS ORDERED: PNEUMOCOCCAL ADMINISTRATION CHARGE ONE (08:00)
[2016-07-26] MEDS ORDERED: PNEUMOCOCCAL POLYSACCHARIDES 25 MCG/0.5 ML VIAL/SYR IM. ONE (08:00)
--- NOTE | 2016-07-26 08:22 | Clinical Documentation Query ---
GRAHAM Silva : CLINICAL DOCUMENTATION QUERY Patient is an 86 year old female admitted for an altered mental status in the setting of hyperglycemia, hypernatremia, and hypertension. She has had a CT scan of the head, ABG, SSI coverage, pharmacy consultation, hypotonic IVF, serial chemistries, antihypertensives. Consider clarification of altered mental status as suggested below as this replaces a symptom with a clinical diagnosis and imparts significant impact on DRG assignment. Thank you. In your clinical opinion is this patient being managed for: ( X ) Metabolic and/or hypertensive encephalopathy ( ) Other explanation of clinical findings (Please Explain) ( ) Unable to determine (Please Define) ( ) Need to Discuss ( ) Not Agree The medical record reflects the following clinical findings, treatment, and risk factors. Clinical Indicators: As above Treatment:She has had a CT scan of the head, ABG, SSI coverage, pharmacy consultation, hypotonic IVF, serial chemistries, antihypertensives Risk Factors: hyponatremia, hyperglycemia, hypertension. Please clarify and document your clinical opinion in the progress notes and discharge summary. Terms such as "probable", "suspected", "likely", "questionable", "possible", or "still to be ruled out" are acceptable. IF IN AGREEMENT, YOU MUST DOCUMENT ABOVE DIAGNOSTIC STATEMENT IN DAILY PROGRESS NOTES AND DISCHARGE SUMMARY. This document is not part of the patient's record. Thank You, Yuri Rosales, ISMAEL [phone]
[2016-07-26] MEDS ORDERED: CHOLECALCIFEROL 1000 INTER.UNIT TAB PO SCH (09:00)
[2016-07-26] MEDS ORDERED: CITALOPRAM 20 MG TAB PO SCH (09:00)
--- NOTE | 2016-07-26 09:26 | Progress Note ---
Medicine Progress Note Date & Time of Visit: Jul 26, 2016 at 09:16. Subjective patient seen laying in bed, very drowsy tries to open eyes to verbal command opens mouth and medical manager examiner's hand to command not in distress denies pain, shortness of breath by shaking head no other signs noted Objective Last 8 Hrs Date Time Temp Pulse Resp B/P Pulse Ox O2 Delivery O2 Flow Rate FiO2 07/26/16 08:18 36.9 69 20 97 07/26/16 08:00 Nasal Cannula 07/26/16 04:00 93 Nasal Cannula 3.0 07/26/16 03:46 37.0 70 20 114/67 98 Nasal Cannula 3.0 Physical Exam: General- drowsy, not in distress Head- atraumatic Eyes- anicteric ENT- dry oral mucosa Neck- supple, no JVD, no adenopathy, no thyromegaly Lungs- mild rales bilateral bases Heart- normal rate, regular rhythm; no murmurs Abdomen- normal bowel sounds, soft, nontender Extremities- no pretibial edema, no calf tenderness Neuro- difficult to do complete neuro exam as patient drowsy no facial asymmetry, moves upper extremities equally Skin- warm & dry Laboratory Results: Last 24 Hours Test 07/25/16 17:51 07/25/16 17:53 07/25/16 17:55 07/25/16 17:57 Procalcitonin 0.10 ng/mL Bedside Lactic Acid Venous 3.24 mmol/L White Blood Count 8.72 K/uL Red Blood Count 4.01 M/uL Hemoglobin 13.4 g/dL Hematocrit 41.1 % Mean Corpuscular Volume 102.5 fL Mean Corpuscular Hemoglobin 33.4 pg Mean Corpuscular Hemoglobin Concent 32.6 g/dl Platelet Count 173 K/uL Mean Platelet Volume 11.1 fL Neutrophils (%) (Auto) 74.6 % Lymphocytes (%) (Auto) 14.0 % Monocytes (%) (Auto) 11.1 % Eosinophils (%) (Auto) 0.0 % Basophils (%) (Auto) 0.1 % Neutrophils # (Auto) 6.50 K/uL Lymphocytes # (Auto) 1.22 K/uL Monocytes # (Auto) 0.97 K/uL Eosinophils # (Auto) 0.00 K/uL Basophils # (Auto) 0.01 K/uL Bedside Hemoglobin 13.3 g/dl Bedside Hematocrit 39 % RDW Standard Deviation 56.4 fL RDW Coefficient of Variation 15.1 % Immature Granulocyte % (Auto) 0.2 % Immature Granulocyte # (Auto) 0.02 K/uL Prothrombin Time 25.6 SECONDS Prothromb Time International Ratio 2.3 Activated Partial Thromboplast Time 31.5 SECONDS Partial Thromboplastin Ratio 1.2 Bedside Sodium 155 mEq/L Sodium Level 155 mmol/L Bedside Potassium 4.3 mEq/L Potassium Level 4.0 mmol/L Bedside Chloride 116 mEq/L Chloride Level 117 mmol/L Carbon Dioxide Level 30 mmol/L Bedside Total CO2 24 mEq/l Anion Gap 20.0 mmol/L Bedside Blood Urea Nitrogen 40 mg/dl Blood Urea Nitrogen 39 mg/dl Creatinine 1.80 mg/dl Bedside Creatinine 1.4 mg/dl Estimated GFR () 28.6 Estimated GFR (Non- 24.7 BUN/Creatinine Ratio 21.5 Bedside Glucose (other) 487 mg/dl Random Glucose 498 mg/dl Calcium Level 9.9 mg/dl Bedside Ionized Calcium (Betzaida) 1.18 mmol/l Magnesium Level 2.3 mg/dl Total Bilirubin 0.7 mg/dl Direct Bilirubin 0.2 mg/dl Aspartate Amino Transf (AST/SGOT) 26 U/L Alanine Aminotransferase (ALT/SGPT) 39 U/L Alkaline Phosphatase 130 U/L Troponin I 0.454 ng/ml Total Protein 7.8 gm/dl Albumin 3.7 gm/dl Beta-Hydroxybutyric Acid 2.05 mg/dL Urine Color YELLOW Urine Appearance CLEAR Urine pH 5.0 Urine Specific [place] 1.034 Urine Protein TRACE Urine Glucose (UA) 3+ Urine Ketones NEG Urine Occult Blood TRACE Urine Nitrite NEG Urine Bilirubin NEG Urine Urobilinogen NEG Urine Leukocyte Esterase NEG Urine WBC (Auto) 1-5 /hpf Urine RBC (Auto) 0-4 /hpf Urine Hyaline Casts (Auto) 1-5 /lpf Urine Epithelial Cells (Auto) >30 /lpf Urine Bacteria (Auto) 1+ Test 07/25/16 20:15 07/25/16 20:59 07/25/16 21:37 07/25/16 23:55 Bedside Glucose 285 mg/dl 279 mg/dl Arterial Blood pH 7.46 Arterial Blood Partial Pressure CO2 38 mmHg Arterial Blood Partial Pressure O2 65 mmHg Arterial Blood HCO3 26 mmol/L Arterial Blood Oxygen Saturation 90.8 % Arterial Blood Base Excess 2.1 mEq/L Arterial Blood Gas Delivery 2.5L O2 Tito Test POS Sodium Level 159 mmol/L Potassium Level 3.8 mmol/L Chloride Level 124 mmol/L Carbon Dioxide Level 30 mmol/L Anion Gap 5.0 mmol/L Blood Urea Nitrogen 35 mg/dl Creatinine 1.50 mg/dl Est Creatinine Clear Calc Drug Dose 22.1 ml/min Estimated GFR () 35.7 Estimated GFR (Non- 30.8 BUN/Creatinine Ratio 23.3 Random Glucose 299 mg/dl Lactic Acid Level 2.1 mmol/L Calcium Level 9.1 mg/dl Troponin I 0.499 ng/ml Test 07/26/16 01:44 07/26/16 06:05 07/26/16 06:39 Bedside Glucose 234 mg/dl 177 mg/dl White Blood Count 9.81 K/uL Red Blood Count 3.82 M/uL Hemoglobin 12.7 g/dL Hematocrit 40.0 % Mean Corpuscular Volume 104.7 fL Mean Corpuscular Hemoglobin 33.2 pg Mean Corpuscular Hemoglobin Concent 31.8 g/dl Platelet Count 141 K/uL Mean Platelet Volume 10.9 fL Neutrophils (%) (Auto) 75.1 % Lymphocytes (%) (Auto) 14.5 % Monocytes (%) (Auto) 8.9 % Eosinophils (%) (Auto) 1.1 % Basophils (%) (Auto) 0.2 % Neutrophils # (Auto) 7.37 K/uL Lymphocytes # (Auto) 1.42 K/uL Monocytes # (Auto) 0.87 K/uL Eosinophils # (Auto) 0.11 K/uL Basophils # (Auto) 0.02 K/uL RDW Standard Deviation 58.4 fL RDW Coefficient of Variation 15.3 % Immature Granulocyte % (Auto) 0.2 % Immature Granulocyte # (Auto) 0.02 K/uL Prothrombin Time 30.4 SECONDS Prothromb Time International Ratio 2.7 Sodium Level 157 mmol/L Potassium Level 4.2 mmol/L Chloride Level 123 mmol/L Carbon Dioxide Level 29 mmol/L Anion Gap 6.0 mmol/L Blood Urea Nitrogen 35 mg/dl Creatinine 1.30 mg/dl Est Creatinine Clear Calc Drug Dose 25.9 ml/min Estimated GFR () 42.4 Estimated GFR (Non- 36.6 BUN/Creatinine Ratio 27.3 Random Glucose 170 mg/dl Estimated Average Glucose 194 mg/dl Hemoglobin A1c 8.4 % Lactic Acid Level 2.2 mmol/L Calcium Level 9.3 mg/dl Magnesium Level 2.2 mg/dl Total Creatine Kinase 272 U/L Creatine Kinase MB 4.9 ng/ml Creatine Kinase MB Ratio 1.8 Troponin I 0.484 ng/ml Date/Time Source Procedure Growth Status 07/25/16 17:55 Blood Blood Culture Pending Received 07/25/16 17:50 Blood Blood Culture Pending Received 07/25/16 21:45 Nasal MRSA DNA Surveillance Screen - Final Specimen Negative for MRSA by DNA Probe Complete 07/25/16 17:57 Urine,Catheterized Urine Culture Pending Received Assessment & Plan 86 year old female with history of DM, HTN, CKD 3, CAD, P A fib on Coumadin, Alzheimer presenting with altered mental status ALTERED MENTAL STATUS LIKELY ENCEPHALOPATHY, MULTIFACTORIAL: HYPERGLYCEMIA improved ISS and Lantus Pharm consulted HYPERNATREMIA 1/2 NSS ordered repeat PRP at noon appreciate Nephro consult HYPERTENSIVE URGENCY improving resume usual PO meds except Losartan, Lisinopril for acute renal failure PRN Labetalol R/O CVA CT head: possible subacute to chronic right basal ganglia infarct repeat CT head in AM cannot have MRI as patient has Pacemaker ELEVATED LACTIC ACID no obvious source of infection cultures pending on IVF MILD TROPONIN ELEVATION seems to be stable from CKD, Demand Ischemia? check echo, Pacemaker Interrogation PAROXYSMAL A FIB on Carvedilol, Coumadin INR therapeutic CHF DIASTOLIC TYPE monitor while on IV fluids HYPOTHYROIDISM check TSH continue Lthy ALZHEIMER DVT PROPHYLAXIS on coumadin, INR therapeutic DISPO resident of [facility] Current Inpatient Medications: Current Inpatient Medications Medications (Trade) Dose Ordered Sig/Karlee Route Start Time Stop Time Status Last Admin Dose Admin Acetaminophen (Tylenol Tab) 650 mg Q4H PRN PO 07/25/16 20:30 08/24/16 20:29 Ondansetron HCl (Zofran Inj) 4 mg Q6H PRN IV 07/25/16 20:30 08/24/16 20:29 Nitroglycerin (Nitrostat Tab) 0.4 mg UD PRN SL 07/25/16 20:30 08/24/16 20:29 Atorvastatin Calcium (Lipitor Tab) 20 mg QPM PO 07/25/16 21:00 08/24/16 20:59 Carvedilol (Coreg Tab) 25 mg Q12 PO 07/25/16 21:00 08/24/16 20:59 Clopidogrel Bisulfate (plAVix TAB) 75 mg DAILY PO 07/26/16 09:00 08/25/16 08:59 Isosorbide Mononitrate (Imdur Ext Rel Tab) 60 mg QAM PO 07/26/16 09:00 08/25/16 08:59 Latanoprost (Xalatan Oph Soln) 1 drops QPM OPB 07/25/16 21:00 08/24/16 20:59 07/25/16 22:13 1 DROPS Levothyroxine Sodium (Synthroid Tab) 50 mcg DAILYBB PO 07/26/16 06:00 08/25/16 05:59 Ranitidine HCl (zANTac TAB) 150 mg BID PO 07/25/16 21:00 08/24/16 20:59 Warfarin Sodium (Coumadin Tab) 5 mg WeSa@1600 PO 07/27/16 16:00 08/26/16 15:59 Warfarin Sodium (Coumadin Tab) 2.5 mg SuMoTuThFr@1600 PO 07/26/16 16:00 08/25/16 15:59 Insulin Glargine (Lantus Solostar Pen) 5 unit Q12 SC 07/25/16 21:00 08/24/16 20:59 07/26/16 07:48 5 UNIT Insulin Aspart (novoLOG ASPART) SLIDING SCALE If C... ACHS SC 07/25/16 21:00 08/24/16 20:59 07/25/16 22:14 4 UNITS Glucose (Glucose 40% Gel) 15-30 GRAMS 15 GRAMS... UD PRN PO 07/25/16 21:00 08/24/16 20:59 Glucose (Glucose Chew Tab) 4-8 Tablets 4 Tabl... UD PRN PO 07/25/16 21:00 08/24/16 20:59 Dextrose (Dextrose 50% 50ML Syringe) 25-50ML OF 50% DW IV FOR... UD PRN IV 07/25/16 21:00 08/24/16 20:59 Glucagon 1 mg 1 mg UD PRN SQ 07/25/16 21:00 08/24/16 20:59 Sodium Chloride (1/2 Nss 1000ml) 1,000 ml @ 100 mls/hr Q10H IV 07/25/16 21:45 08/24/16 21:44 07/26/16 07:47 100 MLS/HR Labetalol HCl (Normodyne IV) 10 mg Q6H PRN IV 07/25/16 21:00 08/24/16 20:59 Miscellaneous Information (Consult Glycemic Management Pharmacy) 1 ea DAILY PRN N/A 07/25/16 21:00 08/24/16 20:46
[2016-07-26 12:36] LABS: BUN/CREATININE RATIO 29.3 (10-20); CALCIUM 9.1 mg/dl (8.5-10.1); CREATININE 1.2 mg/dl (0.60-1.20); POTASSIUM 3.8 mmol/L (3.5-5.1)
--- NOTE | 2016-07-26 13:03 | Pharmacy Progress Note ---
Glycemic Control: Progress Nt Date of Service Jul 26, 2016. Scope Glycemic Pharmacist consulted by Nehemiah CADET on 07/25/16 for glycemic control and to write orders per [facility] inpatient glycemic control protocol. Objective Accuchecks BSG (last 24hrs): Test 07/25/16 17:55 07/25/16 20:15 07/25/16 21:37 07/25/16 23:55 Random Glucose 498 mg/dl (70-99) 299 mg/dl (70-99) Bedside Glucose 285 mg/dl (70-90) 279 mg/dl (70-90) Test 07/26/16 01:44 07/26/16 06:05 07/26/16 06:39 07/26/16 11:55 Bedside Glucose 234 mg/dl (70-90) 177 mg/dl (70-90) 196 mg/dl (70-90) Random Glucose 170 mg/dl (70-99) Test 07/26/16 12:00 Random Glucose 186 mg/dl (70-99) Laboratory Data (last 24hrs) Test 07/25/16 17:55 07/25/16 23:55 07/26/16 06:05 07/26/16 12:00 Anion Gap 20.0 mmol/L 5.0 mmol/L 6.0 mmol/L 5.0 mmol/L BUN/Creatinine Ratio 21.5 23.3 27.3 29.3 Blood Urea Nitrogen 39 mg/dl 35 mg/dl 35 mg/dl 35 mg/dl Creatinine 1.80 mg/dl 1.50 mg/dl 1.30 mg/dl 1.20 mg/dl Potassium Level 4.0 mmol/L 3.8 mmol/L 4.2 mmol/L 3.8 mmol/L Sodium Level 155 mmol/L 159 mmol/L 157 mmol/L 155 mmol/L White Blood Count 8.72 K/uL 9.81 K/uL Red Blood Count 4.01 M/uL 3.82 M/uL Hemoglobin 13.4 g/dL 12.7 g/dL Hematocrit 41.1 % 40.0 % Mean Corpuscular Volume 102.5 fL 104.7 fL Mean Corpuscular Hemoglobin 33.4 pg 33.2 pg Mean Corpuscular Hemoglobin Concent 32.6 g/dl 31.8 g/dl Platelet Count 173 K/uL 141 K/uL Mean Platelet Volume 11.1 fL 10.9 fL Neutrophils (%) (Auto) 74.6 % 75.1 % Lymphocytes (%) (Auto) 14.0 % 14.5 % Monocytes (%) (Auto) 11.1 % 8.9 % Eosinophils (%) (Auto) 0.0 % 1.1 % Basophils (%) (Auto) 0.1 % 0.2 % Neutrophils # (Auto) 6.50 K/uL 7.37 K/uL Lymphocytes # (Auto) 1.22 K/uL 1.42 K/uL Monocytes # (Auto) 0.97 K/uL 0.87 K/uL Eosinophils # (Auto) 0.00 K/uL 0.11 K/uL Basophils # (Auto) 0.01 K/uL 0.02 K/uL Hemoglobin A1c 8.4 % HbA1c: Test 07/26/16 06:05 Hemoglobin A1c 8.4 % (4.5-5.6) H Recent Pertinent Medications Outpatient Anti-diabetic Regimen: * Lantus 12 units Q HS * Novolog 4 units w/ breakfast; 6 units w/ lunch; 4 units w/ dinner * A1c = 9 % 05/04/14 The patient is currently receiving: * Basal insulin: Lantus 5 units every 12 hours * Correctional Insulin: Novolog Correction per scale ACHS Goal Range: Low 140 mg/dL - High 180 mg/dL Correction Factor: 30 mg/dL/unit * Prandial insulin: Per carb ratio of 1 unit per 15 grams CHO consumed * Oral Agents: None currently Risk Factors for Insulin Resistance: * Steroids: n/a * Infection: n/a * Pressors: n/a * IVF: 1/2 NS @ 100cc/hr * Recent Surgery: n/a * Diet: currently NPO * Mechanical Ventilation: n/a Assessment & Plan ASSESSMENT: 07/26/16 * Glycemic control has improved greatly over the past 24 hours; BSGs had been in upper 400's on admission, however are now down to upper 100's * Patient remains NPO at this time * Fasting BSGs are 177-196 at this time w/ 10 units of Lantus on board * Will continue current Lantus dose for next 24 hrs given continued NPO status * Hypernatremia still present, Na 157 this AM with repeat Na later today. May require more free water, i.e. D5W infusion - which may lead to deterioration in glycemic control. Should D5W infusion be required, will plan on changing BSG checks to Q 4 hrs and cover w/ Novolog correction rather than changing basal insulin dose * CF and CR are reasonable starting points; CF has reduced BSGs nicely without overcorrection PLAN FOR INPATIENT GLYCEMIC CONTROL: * Continuing Lantus 5 units SQ BID * Continuing correction factor of 30 mg/dl/unit * Continuing carb ratio of 1 unit per 15 grams CHO consumed * Changing goal range to Low 120 mg/dL - High 160 mg/dL * Please note that the plan above was derived based on current level of insulin resistance and hospital stress. These recommendations are appropriate for inpatient admission only. Plan of care upon discharge will need to be reassessed to avoid potential outpatient hypo/hyperglycemia. Thank you.
[2016-07-26] MEDS ORDERED: CEFEPIME CONSULT ACTIVE PRN ×2 (14:10)
[2016-07-26] MEDS ORDERED: CEFEPIME IV 1,000 MG in DEXTROSE 5% 100ML IV ONE (14:30)
--- NOTE | 2016-07-26 15:46 | ECHOCARDIOGRAM REPORT ---
*NOTICE TO RECEIVING [employer] This information is strictly Confidential and protected under [place] law. [place] law prohibits you from making any further disclosure of this information unless further disclosure is expressly permitted by the written consent of the person to whom it pertains or is authorized by law. A general authorization for the release of medical or other information is not sufficient for this purpose. Hospital accepts no responsibility if the information is made available to any other person, INCLUDING THE PATIENT. Interpretation Summary * Conclusions -- * The left ventricle is normal in size. * There is moderate concentric left ventricular hypertrophy. * There is severe hypokinesis to akinesis of the base and mid inferior wall * Left ventricular systolic function is normal. * Ejection Fraction = 55-60%. * Diastolic dysfunction, Grade III (restrictive pattern), consistent with markedly increased left atrial pressure. * The aortic valve leaflets are moderately calcified with mild restriction in leaflet mobility. * Mild valvular aortic stenosis. * There is moderate mitral annular calcification. * There is moderate mitral regurgitation. * There is mild to moderate tricuspid regurgitation. * Right ventricular systolic pressure is severely elevated at >60mmHg. Procedure Details * A complete two-dimensional transthoracic echocardiogram was performed (2D, M-mode, Doppler and color flow Doppler). * The study was technically difficult. * There were technical limitations due to patient'sinability to cooperate Left Ventricle * The left ventricle is normal in size. * There is moderate concentric left ventricular hypertrophy. * Ejection Fraction = 55-60%. * Left ventricular systolic function is normal. * There is severe hypokinesis to akinesis of the base and mid inferior wall Right Ventricle * The right ventricle is normal in size and function. * There is a pacemaker lead in the right ventricle. Atria * The left atrial size is normal. * Right atrial size is normal. * No ASD detected; PFO is not assessed. Mitral Valve * There is moderate mitral annular calcification. * There is no mitral valve stenosis. * There is moderate mitral regurgitation. Tricuspid Valve * The tricuspid valve anatomy is normal. * There is no tricuspid stenosis. * There is mild to moderate tricuspid regurgitation. * Right ventricular systolic pressure is elevated at >60mmHg. Aortic Valve * The aortic valve is trileaflet. * The aortic valve leaflets are moderately calcified with mild restriction in leaflet mobility. * Mild valvular aortic stenosis. * Trace aortic regurgitation. Pulmonic Valve * The pulmonic valve is not well visualized. Great Vessels * The aortic root is normal size. Pericardium/Pleural * There is no pericardial effusion. Great Vessels * Normal inferior vena cava diameter and respiratory variation suggests normal central venous pressure. Left Ventricular Diastolic Function * Diastolic dysfunction, Grade III (restrictive pattern), consistent with markedly increased left atrial pressure. MMode 2D Measurements and Calculations IVSd 1.6 cm IVSs 1.8 cm LVIDd 3.6 cm LVIDs 2.6 cm LVPWd 1.8 cm LVPWs 2.3 cm IVS/LVPW 0.89 FS 29.6 % EDV(Teich) 55.6 ml ESV(Teich) 23.6 ml EF(Teich) 57.6 % EDV(cubed) 47.9 ml ESV(cubed) 16.7 ml EF(cubed) 65.2 % % IVS thick 9.8 % % LVPW thick 30.1 % LV mass(C)d 249.1 grams LV mass(C)dI 153.9 grams/m\S\2 LV mass(C)s 230.7 grams LV mass(C)sI 142.6 grams/m\S\2 CO(Teich) 2.3 l/min CI(Teich) 1.4 l/min/m\S\2 SV(Teich) 32.0 ml SI(Teich) 19.8 ml/m\S\2 CO(cubed) 2.2 l/min CI(cubed) 1.4 l/min/m\S\2 SV(cubed) 31.2 ml SI(cubed) 19.3 ml/m\S\2 ACS 1.1 cm LA dimension 3.8 cm asc Aorta Diam 2.7 cm LVOT diam 1.5 cm LVOT area 1.7 cm\S\2 LVAd ap4 17.0 cm\S\2 LVLd ap4 6.6 cm EDV(MOD-sp4) 40.0 ml LVAs ap4 10.5 cm\S\2 LVLs ap4 5.6 cm ESV(MOD-sp4) 18.0 ml EF(MOD-sp4) 55.0 % LVAd ap2 16.8 cm\S\2 LVLd ap2 5.3 cm EDV(MOD-sp2) 45.0 ml LVAs ap2 11.2 cm\S\2 LVLs ap2 5.2 cm ESV(MOD-sp2) 22.0 ml EF(MOD-sp2) 51.1 % CO(MOD-sp4) 1.6 l/min CI(MOD-sp4) 0.97 l/min/m\S\2 SV(MOD-sp4) 22.0 ml SI(MOD-sp4) 13.6 ml/m\S\2 CO(MOD-sp2) 1.6 l/min CI(MOD-sp2) 1.0 l/min/m\S\2 SV(MOD-sp2) 23.0 ml SI(MOD-sp2) 14.2 ml/m\S\2 Doppler Measurements and Calculations MV E max aysha 113.9 cm/sec MV A max aysha 38.5 cm/sec MV E/A 3.0 MV V2 max 125.7 cm/sec MV max PG 6.3 mmHg MV V2 mean 65.2 cm/sec MV mean PG 2.1 mmHg MV V2 VTI 32.4 cm MV dec time 0.17 sec Ao V2 max 102.1 cm/sec Ao max PG 4.2 mmHg Ao max PG (full) 1.7 mmHg MONTSE(V,A) 1.3 cm\S\2 MONTSE(V,D) 1.3 cm\S\2 AI max aysha 240.5 cm/sec AI max PG 23.1 mmHg AI dec slope 135.0 cm/sec\S\2 AI P1/2t 521.8 msec LV V1 max PG 2.5 mmHg LV V1 max 78.8 cm/sec MR max aysha 417.2 cm/sec MR max PG 69.6 mmHg PA V2 max 59.0 cm/sec PA max PG 1.4 mmHg PI end-d aysha 176.0 cm/sec TR max aysha 382.3 cm/sec
[2016-07-26] MEDS ORDERED: WARFARIN SOD 2.5 MG TAB PO SCH (16:00)
[2016-07-26 18:27] LABS: BUN/CREATININE RATIO 32.3 (10-20); CALCIUM 8.8 mg/dl (8.5-10.1); CREATININE 1.1 mg/dl (0.60-1.20); POTASSIUM 4.1 mmol/L (3.5-5.1)
[2016-07-26] MEDS ORDERED: NURSING VERBAL MED ORDER ONE (19:15)
[2016-07-26] MEDS: DEXTROSE 5% 1000ML 1,000 ML IV SCH (19:38)
[2016-07-26] MEDS: LATANOPROST 0.005% OP SOLN 2.5 ML BTL OPB SCH (19:57)
[2016-07-26] MEDS: ATORVASTATIN 20 MG TAB PO SCH (19:58)
[2016-07-27] VITALS (7 sets, daily range): BP systolic 130–168; BP diastolic 62–86; PULSE 69–86; TEMP 36.6–37; O2SAT 94–99
[2016-07-27] MEDS: INSULIN ASPART 100 UNITS/ML 3 ML PEN SC SCH ×5 (00:24→21:26)
[2016-07-27] MEDS: LEVOTHYROXINE 50 MCG TAB PO SCH ×2 (05:12→10:05)
[2016-07-27] MEDS: DEXTROSE 5% 1000ML 1,000 ML IV SCH ×2 (06:26→15:17)
[2016-07-27 06:34] LABS: BUN/CREATININE RATIO 36.5 (10-20); CALCIUM 8.3 mg/dl (8.5-10.1); CREATININE 0.93 mg/dl (0.60-1.20); POTASSIUM 3.6 mmol/L (3.5-5.1)
[2016-07-27] MEDS: INSULIN GLARGINE SOLOSTAR 100 UNITS/ML 3 ML PEN SC SCH ×2 (09:00→21:23)
--- NOTE | 2016-07-27 09:45 | Progress Note ---
Medicine Progress Note Date & Time of Visit: Jul 27, 2016 at 09:34. Subjective patient seen awake, alert, nods/shakes head to questions, follows simple commands, not speaking yet denies chest pain, dyspnea, cough no abdominal pain, nausea/vomiting, diarrhea no headache, dizziness no other symptoms Objective Last 8 Hrs Date Time Temp Pulse Resp B/P Pulse Ox O2 Delivery O2 Flow Rate FiO2 07/27/16 08:00 Nasal Cannula 2.0 07/27/16 07:24 37.0 86 22 168/86 95 07/27/16 04:11 140/80 07/27/16 04:00 Nasal Cannula 2.0 07/27/16 03:15 36.6 69 19 99 Nasal Cannula 2.0 Physical Exam: General- drowsy, not in distress Eyes- anicteric ENT- dry oral mucosa Neck- supple, no JVD, Lungs- mild rales bilateral bases, no wheezing Heart- normal rate, regular rhythm; no murmurs Abdomen- normal bowel sounds, soft, nontender Extremities- bipedal edema, no calf tenderness right foot: (+) bruising on the anterior ankle region and toe left foot: (+) bruising on the dorsal area, and toe Neuro- pupils equal reactive, eomi no facial asymmetry, moves upper extremities right > left (chronic per daughter) Skin- warm & dry Laboratory Results: Last 24 Hours Test 07/26/16 11:55 07/26/16 12:00 07/26/16 16:21 07/26/16 17:58 Bedside Glucose 196 mg/dl 127 mg/dl Sodium Level 155 mmol/L 155 mmol/L Potassium Level 3.8 mmol/L 4.1 mmol/L Chloride Level 122 mmol/L 121 mmol/L Carbon Dioxide Level 28 mmol/L 29 mmol/L Anion Gap 5.0 mmol/L 5.0 mmol/L Blood Urea Nitrogen 35 mg/dl 36 mg/dl Creatinine 1.20 mg/dl 1.10 mg/dl Est Creatinine Clear Calc Drug Dose 28.0 ml/min 30.6 ml/min Estimated GFR () 46.7 51.9 Estimated GFR (Non- 40.3 44.8 BUN/Creatinine Ratio 29.3 32.3 Random Glucose 186 mg/dl 134 mg/dl Lactic Acid Level 1.3 mmol/L Calcium Level 9.1 mg/dl 8.8 mg/dl Test 07/26/16 21:51 07/27/16 00:01 07/27/16 05:39 07/27/16 05:58 Bedside Glucose 180 mg/dl 178 mg/dl 178 mg/dl Sodium Level 147 mmol/L Potassium Level 3.6 mmol/L Chloride Level 115 mmol/L Carbon Dioxide Level 27 mmol/L Anion Gap 5.0 mmol/L Blood Urea Nitrogen 34 mg/dl Creatinine 0.93 mg/dl Est Creatinine Clear Calc Drug Dose 36.2 ml/min Estimated GFR () 63.6 Estimated GFR (Non- 54.9 BUN/Creatinine Ratio 36.5 Random Glucose 226 mg/dl Calcium Level 8.3 mg/dl Test 07/27/16 09:19 07/27/16 09:20 Assessment & Plan 86 year old female with history of DM, HTN, CKD 3, CAD, P A fib on Coumadin, Alzheimer presenting with altered mental status ALTERED MENTAL STATUS LIKELY ENCEPHALOPATHY, MULTIFACTORIAL: HYPERGLYCEMIA improved ISS and Lantus BID Pharm consulted HYPERNATREMIA 1/2 NSS ordered, changed to d5w Na improving, now at 147 appreciate Nephro consult HYPERTENSIVE URGENCY improved resumed usual PO meds except Losartan, Lisinopril for acute renal failure- patient has CKD, may need to change to Amlodipine or Hydralazine PRN Labetalol UTI, PROTEUS change Cefepime to Ceftriaxone IV seems to have no new focal deficits CT head: possible subacute to chronic right basal ganglia infarct cannot have MRI as patient has Pacemaker ELEVATED LACTIC ACID resolved on IVF MILD TROPONIN ELEVATION seems to be stable likely from CKD, Demand Ischemia echo: no mention of wall motion abnormalities Pacemaker Interrogation PAROXYSMAL A FIB on Carvedilol, Coumadin INR pending CHF DIASTOLIC TYPE Lasix on hold monitor while on IV fluids HYPOTHYROIDISM check TSH continue Lthy ALZHEIMER patient's baseline per daughter: does not talk much, forgetful, confused, but pleasant DVT PROPHYLAXIS on coumadin DISPO resident of [facility] daughter Sherin updated, plan of care discussed she is agreeable and comfortable with plan of care Current Inpatient Medications: Current Inpatient Medications Medications (Trade) Dose Ordered Sig/Karlee Route Start Time Stop Time Status Last Admin Dose Admin Acetaminophen (Tylenol Tab) 650 mg Q4H PRN PO 07/25/16 20:30 08/24/16 20:29 Ondansetron HCl (Zofran Inj) 4 mg Q6H PRN IV 4/13/17 20:30 08/24/16 20:29 Nitroglycerin (Nitrostat Tab) 0.4 mg UD PRN SL 07/25/16 20:30 08/24/16 20:29 Atorvastatin Calcium (Lipitor Tab) 20 mg QPM PO 07/25/16 21:00 08/24/16 20:59 Carvedilol (Coreg Tab) 25 mg Q12 PO 07/25/16 21:00 08/24/16 20:59 Clopidogrel Bisulfate (plAVix TAB) 75 mg DAILY PO 07/26/16 09:00 08/25/16 08:59 Isosorbide Mononitrate (Imdur Ext Rel Tab) 60 mg QAM PO 07/26/16 09:00 08/25/16 08:59 Latanoprost (Xalatan Oph Soln) 1 drops QPM OPB 07/25/16 21:00 08/24/16 20:59 07/26/16 19:57 1 DROPS Levothyroxine Sodium (Synthroid Tab) 50 mcg DAILYBB PO 07/26/16 06:00 08/25/16 05:59 Ranitidine HCl (zANTac TAB) 150 mg BID PO 07/25/16 21:00 08/24/16 20:59 Warfarin Sodium (Coumadin Tab) 5 mg WeSa@1600 PO 07/27/16 16:00 08/26/16 15:59 Warfarin Sodium (Coumadin Tab) 2.5 mg SuMoTuThFr@1600 PO 07/26/16 16:00 08/25/16 15:59 Insulin Glargine (Lantus Solostar Pen) 5 unit Q12 SC 07/25/16 21:00 08/24/16 20:59 07/26/16 21:55 5 UNIT Glucose (Glucose 40% Gel) 15-30 GRAMS 15 GRAMS... UD PRN PO 07/25/16 21:00 08/24/16 20:59 Glucose (Glucose Chew Tab) 4-8 Tablets 4 Tabl... UD PRN PO 07/25/16 21:00 08/24/16 20:59 Dextrose (Dextrose 50% 50ML Syringe) 25-50ML OF 50% DW IV FOR... UD PRN IV 07/25/16 21:00 08/24/16 20:59 Glucagon (Glucagon Inj) 1 mg UD PRN SQ 07/25/16 21:00 08/24/16 20:59 Labetalol HCl (Normodyne IV) 10 mg Q6H PRN IV 07/25/16 21:00 08/24/16 20:59 07/26/16 16:27 10 MG Miscellaneous Information 1 ea 1 ea DAILY PRN N/A 07/25/16 21:00 08/24/16 20:46 Dextrose (D5W 1000ml) 1,000 ml @ 100 mls/hr Q10H IV 07/26/16 19:30 08/25/16 19:29 07/27/16 06:26 100 MLS/HR Insulin Aspart SLIDING SCALE If C... Q6 SC 07/27/16 00:00 08/26/16 00:00 07/27/16 06:30 1 UNITS Ceftriaxone Sodium/Dextrose (Rocephin Inj/ Dextrose Add-[place] 50ML) 50 ml @ 100 mls/hr Q24H IV 07/27/16 09:30 08/06/16 09:29 UNV
[2016-07-27] MEDS: CEFTRIAXONE SOD INJ 1 GM in DEXTROSE 5% ADD-VANTAGE 50ML 50 ML IV SCH (10:05)
[2016-07-27] MEDS: CLOPIDOGREL BISULFATE 75 MG TAB PO SCH (10:06)
[2016-07-27] MEDS: RANITIDINE HCL 150 MG TAB PO SCH ×2 (10:06→21:19)
[2016-07-27] MEDS: CARVEDILOL 25 MG TAB PO SCH ×2 (10:07→21:19)
[2016-07-27] MEDS: ISOSORBIDE MONONITRATE 60 MG TABCR PO SCH (10:07)
[2016-07-27 10:41] LABS: INR 3.2 (0.9-1.1); PROTHROMBIN TIME (PATIENT) 35.6 SECONDS (9.0-12.0)
[2016-07-27] MEDS ORDERED: CEFEPIME IV 500 MG in DEXTROSE 5% 100ML 100 ML IV SCH (14:00)
--- NOTE | 2016-07-27 14:34 | Pharmacy Progress Note ---
Glycemic Control: Progress Nt Date of Service Jul 27, 2016. Scope Glycemic Pharmacist consulted by Leann Gonzalez on 07/25/16 for glycemic control and to write orders per [facility] inpatient glycemic control protocol. Objective Accuchecks BSG (last 24hrs): Test 07/26/16 16:21 07/26/16 17:58 07/26/16 21:51 07/27/16 00:01 Bedside Glucose 127 mg/dl (70-90) 180 mg/dl (70-90) 178 mg/dl (70-90) Random Glucose 134 mg/dl (70-99) Test 07/27/16 05:39 07/27/16 05:58 07/27/16 11:24 Random Glucose 226 mg/dl (70-99) Bedside Glucose 178 mg/dl (70-90) 254 mg/dl (70-90) Laboratory Data (last 24hrs) Test 07/26/16 17:58 07/27/16 05:39 Anion Gap 5.0 mmol/L 5.0 mmol/L BUN/Creatinine Ratio 32.3 36.5 Blood Urea Nitrogen 36 mg/dl 34 mg/dl Creatinine 1.10 mg/dl 0.93 mg/dl Potassium Level 4.1 mmol/L 3.6 mmol/L Sodium Level 155 mmol/L 147 mmol/L HbA1c: Test 07/26/16 06:05 Hemoglobin A1c 8.4 % (4.5-5.6) H Recent Pertinent Medications Outpatient Anti-diabetic Regimen: * Lantus 12 units Q HS * NovoLog 4 units w/ breakfast; 6 units w/ lunch; 4 units w/ dinner * A1c = 9 % 05/04/14 The patient is currently receiving: * Basal insulin: Lantus 5 units every 12 hours * Correctional Insulin: NovoLog Correction per scale ACHS Goal Range: Low 120 mg/dL - High 160 mg/dL Correction Factor: 30 mg/dL/unit * Prandial insulin: Per carb ratio of 1 unit per 15 grams CHO consumed * Oral Agents: None currently Risk Factors for Insulin Resistance: * Infection: CXT for UTI * Diet: NPO --> T2DM/AHA Assessment & Plan ASSESSMENT: 07/26/16 * Glycemic control has improved greatly over the past 24 hours; BSGs had been in upper 400's on admission, however are now down to upper 100's * Patient remains NPO at this time * Fasting BSGs are 177-196 at this time w/ 10 units of Lantus on board * Will continue current Lantus dose for next 24 hrs given continued NPO status * Hypernatremia still present, Na 157 this AM with repeat Na later today. May require more free water, i.e. D5W infusion - which may lead to deterioration in glycemic control. Should D5W infusion be required, will plan on changing BSG checks to Q 4 hrs and cover w/ NovoLog correction rather than changing basal insulin dose * CF and CR are reasonable starting points; CF has reduced BSGs nicely without overcorrection 07/27/16 * BSGs beginning to trend upwards again despite nothing by mouth over the past 24 hours * increase basal insulin by 20% * diet advanced * although carb ratio has not yet been fully tested, will tighten since patient is hyperglycemic PLAN FOR INPATIENT GLYCEMIC CONTROL: * Increase Lantus * 6 units SQ BID * Continue NovoLog AC and HS * Add Accu-check at 02:00 while hyperglycemic * Continuing correction factor of 30 mg/dl/unit * Tighten carb ratio to 1 unit per 1 grams CHO consumed * Continue goal range to Low 120 mg/dL - High 160 mg/dL RECOMMENDATIONS FOR DISCHARGE: * Likely, the patient can continue her home regimen at discharge * Please note that the plan above was derived based on current level of insulin resistance and hospital stress. These recommendations are appropriate for inpatient admission only. Plan of care upon discharge will need to be reassessed to avoid potential outpatient hypo/hyperglycemia. Thank you.
[2016-07-27] MEDS ORDERED: WARFARIN SOD 5 MG TAB PO SCH (16:00)
[2016-07-27] MEDS: ATORVASTATIN 20 MG TAB PO SCH (21:18)
[2016-07-27] MEDS: LATANOPROST 0.005% OP SOLN 2.5 ML BTL OPB SCH (21:19)
[2016-07-28] MEDS: DEXTROSE 5% 1000ML 1,000 ML IV SCH ×3 (01:30→23:09)
[2016-07-28] MEDS ORDERED: INSULIN ASPART 100 UNITS/ML 3 ML PEN SC SCH (02:00)
[2016-07-28 03:30] VITALS: BP 140/69; PULSE 81; TEMP 36.4; O2SAT 94
[2016-07-28] MEDS: LEVOTHYROXINE 50 MCG TAB PO SCH (06:42)
[2016-07-28 06:48] LABS: INR 2.6 (0.9-1.1); PROTHROMBIN TIME (PATIENT) 28.6 SECONDS (9.0-12.0)
[2016-07-28 07:28] LABS: BUN/CREATININE RATIO 28.9 (10-20); CALCIUM 8.4 mg/dl (8.5-10.1); CREATININE 0.92 mg/dl (0.60-1.20); POTASSIUM 3.4 mmol/L (3.5-5.1)
[2016-07-28 07:56] VITALS: BP 144/62; PULSE 86; TEMP 36.8; O2SAT 98
[2016-07-28] MEDS: CLOPIDOGREL BISULFATE 75 MG TAB PO SCH (09:03)
[2016-07-28] MEDS: RANITIDINE HCL 150 MG TAB PO SCH ×2 (09:04→22:53)
[2016-07-28] MEDS: CARVEDILOL 25 MG TAB PO SCH ×2 (09:04→22:52)
[2016-07-28] MEDS: ISOSORBIDE MONONITRATE 60 MG TABCR PO SCH (09:04)
[2016-07-28] MEDS: CEFTRIAXONE SOD INJ 1 GM in DEXTROSE 5% ADD-VANTAGE 50ML 50 ML IV SCH (09:46)
[2016-07-28] MEDS: INSULIN ASPART 100 UNITS/ML 3 ML PEN SC SCH ×4 (09:49→22:00)
[2016-07-28] MEDS: INSULIN GLARGINE SOLOSTAR 100 UNITS/ML 3 ML PEN SC SCH ×2 (09:50→22:55)
--- NOTE | 2016-07-28 10:44 | Progress Note ---
Medicine Progress Note Date & Time of Visit: Jul 28, 2016 at 10:38. Subjective patient seen sitting up in bed, holding/reading the newspaper appears comfortable states she feels "good" denies abdominal pain, shortness of breath, chest pain no other symptoms Objective Last 8 Hrs Date Time Temp Pulse Resp B/P Pulse Ox O2 Delivery O2 Flow Rate FiO2 07/28/16 07:56 36.8 86 18 144/62 98 07/28/16 04:00 Nasal Cannula 2.0 07/28/16 03:30 36.4 81 19 140/69 94 Nasal Cannula 2.0 Physical Exam: General- drowsy, not in distress Eyes- anicteric Neck- no JVD, Lungs- clear breath sounds, no rales/ no wheezing Heart- normal rate, regular rhythm; no murmurs Abdomen- normal bowel sounds, soft, nontender Extremities- bipedal edema- improving, no calf tenderness right foot: (+) bruising on the anterior ankle region and toe left foot: (+) bruising on the dorsal area, and toe Neuro- eomi no facial asymmetry, moves upper extremities right > left (chronic per daughter) Skin- warm & dry Laboratory Results: Last 24 Hours Test 07/27/16 11:24 07/27/16 16:05 07/27/16 20:12 07/28/16 06:17 Bedside Glucose 254 mg/dl 171 mg/dl 171 mg/dl Prothrombin Time 28.6 SECONDS Prothromb Time International Ratio 2.6 Sodium Level 147 mmol/L Potassium Level 3.4 mmol/L Chloride Level 113 mmol/L Carbon Dioxide Level 27 mmol/L Anion Gap 7.0 mmol/L Blood Urea Nitrogen 27 mg/dl Creatinine 0.92 mg/dl Est Creatinine Clear Calc Drug Dose 37.3 ml/min Estimated GFR () 64.4 Estimated GFR (Non- 55.6 BUN/Creatinine Ratio 28.9 Random Glucose 190 mg/dl Calcium Level 8.4 mg/dl Test 07/28/16 06:32 Bedside Glucose 170 mg/dl Assessment & Plan 86 year old female with history of DM, HTN, CKD 3, CAD, P A fib on Coumadin, Alzheimer presenting with altered mental status ALTERED MENTAL STATUS LIKELY ENCEPHALOPATHY, MULTIFACTORIAL: UTI, PROTEUS changed Cefepime to Ceftriaxone IV afebrile HYPERGLYCEMIA improved ISS and Lantus BID Pharm consulted HYPERNATREMIA 1/2 NSS ordered, changed to d5w Na improving, still at 147 appreciate Nephro consult HYPERTENSIVE URGENCY improved resumed usual PO meds except Losartan, Lisinopril for acute renal failure- patient has CKD, may need to change to Amlodipine or Hydralazine PRN Labetalol seems to have no new focal deficits CT head: possible subacute to chronic right basal ganglia infarct cannot have MRI as patient has Pacemaker ELEVATED LACTIC ACID resolved on IVF MILD TROPONIN ELEVATION seems to be stable likely from CKD, Demand Ischemia echo: no mention of wall motion abnormalities Pacemaker Interrogation PAROXYSMAL A FIB on Carvedilol, Coumadin INR 2.6 resume coumadin CHF DIASTOLIC TYPE Lasix on hold monitor while on IV fluids HYPOTHYROIDISM TSH: normal continue Lthy ALZHEIMER patient's baseline per daughter: does not talk much, forgetful, confused, but pleasant DVT PROPHYLAXIS on coumadin DISPO resident of [facility] Current Inpatient Medications: Current Inpatient Medications Medications (Trade) Dose Ordered Sig/Karlee Route Start Time Stop Time Status Last Admin Dose Admin Acetaminophen (Tylenol Tab) 650 mg Q4H PRN PO 07/25/16 20:30 08/24/16 20:29 Ondansetron HCl (Zofran Inj) 4 mg Q6H PRN IV 07/25/16 20:30 08/24/16 20:29 Nitroglycerin (Nitrostat Tab) 0.4 mg UD PRN SL 07/25/16 20:30 08/24/16 20:29 Atorvastatin Calcium (Lipitor Tab) 20 mg QPM PO 07/25/16 21:00 08/24/16 20:59 07/27/16 21:18 20 MG Carvedilol (Coreg Tab) 25 mg Q12 PO 07/25/16 21:00 08/24/16 20:59 07/28/16 09:04 25 MG Clopidogrel Bisulfate (plAVix TAB) 75 mg DAILY PO 07/26/16 09:00 08/25/16 08:59 07/28/16 09:03 75 MG Isosorbide Mononitrate (Imdur Ext Rel Tab) 60 mg QAM PO 07/26/16 09:00 08/25/16 08:59 07/28/16 09:04 60 MG Latanoprost (Xalatan Oph Soln) 1 drops QPM OPB 07/25/16 21:00 08/24/16 20:59 07/27/16 21:19 1 DROPS Levothyroxine Sodium (Synthroid Tab) 50 mcg DAILYBB PO 07/26/16 06:00 08/25/16 05:59 07/28/16 06:42 50 MCG Ranitidine HCl (zANTac TAB) 150 mg BID PO 07/25/16 21:00 08/24/16 20:59 07/28/16 09:04 150 MG Glucose (Glucose 40% Gel) 15-30 GRAMS 15 GRAMS... UD PRN PO 07/25/16 21:00 08/24/16 20:59 Glucose (Glucose Chew Tab) 4-8 Tablets 4 Tabl... UD PRN PO 07/25/16 21:00 08/24/16 20:59 Dextrose (Dextrose 50% 50ML Syringe) 25-50ML OF 50% DW IV FOR... UD PRN IV 07/25/16 21:00 08/24/16 20:59 Glucagon (Glucagon Inj) 1 mg UD PRN SQ 07/25/16 21:00 08/24/16 20:59 Labetalol HCl (Normodyne IV) 10 mg Q6H PRN IV 07/25/16 21:00 08/24/16 20:59 07/26/16 16:27 10 MG Miscellaneous Information 1 ea 1 ea DAILY PRN N/A 07/25/16 21:00 08/24/16 20:46 Dextrose 1,000 ml @ 100 mls/hr Q10H IV 07/26/16 19:30 08/25/16 19:29 07/27/16 15:17 100 MLS/HR Ceftriaxone Sodium/Dextrose (Rocephin Inj/ Dextrose Add-[place] 50ML) 50 ml @ 100 mls/hr DAILY@1000 IV 07/27/16 10:00 08/06/16 09:59 07/28/16 09:46 100 MLS/HR Insulin Aspart (novoLOG ASPART) SLIDING SCALE If C... ACHS SC 07/27/16 11:30 08/26/16 11:29 07/28/16 09:49 7 UNITS Insulin Glargine (Lantus Solostar Pen) 6 unit Q12 SC 07/27/16 21:00 08/26/16 20:59 07/28/16 09:50 6 UNIT
[2016-07-28] MEDS ORDERED: POTASSIUM CHLORIDE 10 MEQ TABCR PO ONE (11:15)
[2016-07-28 11:45] VITALS: BP 144/62; PULSE 86; TEMP 36.8; O2SAT 98
--- NOTE | 2016-07-28 12:01 | Pharmacy Progress Note ---
Glycemic Control: Progress Nt Date of Service Jul 28, 2016. Scope Glycemic Pharmacist consulted by Leann Gonzalez on 07/25/16 for glycemic control and to write orders per [facility] inpatient glycemic control protocol. Objective Accuchecks BSG (last 24hrs): Test 07/27/16 16:05 07/27/16 20:12 07/28/16 06:17 07/28/16 06:32 Bedside Glucose 171 mg/dl (70-90) 171 mg/dl (70-90) 170 mg/dl (70-90) Random Glucose 190 mg/dl (70-99) Test 07/28/16 11:37 Bedside Glucose 256 mg/dl (70-90) Laboratory Data (last 24hrs) Test 07/28/16 06:17 Anion Gap 7.0 mmol/L BUN/Creatinine Ratio 28.9 Blood Urea Nitrogen 27 mg/dl Creatinine 0.92 mg/dl Potassium Level 3.4 mmol/L Sodium Level 147 mmol/L HbA1c: Test 07/26/16 06:05 Hemoglobin A1c 8.4 % (4.5-5.6) H Recent Pertinent Medications Outpatient Anti-diabetic Regimen: * Lantus 12 units Q HS * NovoLog 4 units w/ breakfast; 6 units w/ lunch; 4 units w/ dinner The patient is currently receiving: * Basal insulin: Lantus 6 units every 12 hours * Correctional Insulin: NovoLog Correction per scale ACHS Goal Range: Low 120 mg/dL - High 160 mg/dL Correction Factor: 30 mg/dL/unit * Prandial insulin: Per carb ratio of 1 unit per 10 grams CHO consumed Risk Factors for Insulin Resistance: * Infection: CXT for UTI * Diet: T2DM/AHA Assessment & Plan ASSESSMENT: 07/26/16 * Glycemic control has improved greatly over the past 24 hours; BSGs had been in upper 400's on admission, however are now down to upper 100's * Patient remains NPO at this time * Fasting BSGs are 177-196 at this time w/ 10 units of Lantus on board * Will continue current Lantus dose for next 24 hrs given continued NPO status * Hypernatremia still present, Na 157 this AM with repeat Na later today. May require more free water, i.e. D5W infusion - which may lead to deterioration in glycemic control. Should D5W infusion be required, will plan on changing BSG checks to Q 4 hrs and cover w/ NovoLog correction rather than changing basal insulin dose * CF and CR are reasonable starting points; CF has reduced BSGs nicely without overcorrection 07/27/16 * BSGs beginning to trend upwards again despite nothing by mouth over the past 24 hours * increase basal insulin by 20% * diet advanced * although carb ratio has not yet been fully tested, will tighten since patient is hyperglycemic 07/28/16 * BSGs elevated yesterday with 25 units of insulin administered (near home doses ). * Have not yet seen effect of increase in basal insulin * Will begin titrating toward once daily Lantus dosing for ease of transition at discharge * NovoLog parameters not quite aggressive enough as BSGs either stayed the same or ashlie post-prandially PLAN FOR INPATIENT GLYCEMIC CONTROL: * Continue Lantus * 6 units SQ BID * Continue NovoLog AC and HS * Tighten correction factor to 25 mg/dl/unit * Tighten carb ratio to 1 unit per 8 grams CHO consumed * Continue goal range to Low 120 mg/dL - High 160 mg/dL RECOMMENDATIONS FOR DISCHARGE: * Likely, the patient can continue her home regimen at discharge. * Please note that the plan above was derived based on current level of insulin resistance and hospital stress. These recommendations are appropriate for inpatient admission only. Plan of care upon discharge will need to be reassessed to avoid potential outpatient hypo/hyperglycemia. Thank you.
--- NOTE | 2016-07-28 12:44 | PROGRESS NOTE ---
DATE: 07/28/2016 SUBJECTIVE: The patient is not interactive. She has advanced dementia. Did not answer any of my questions and did not even open her eyes. OBJECTIVE: HEENT: Mucous membrane is dry. NECK: Supple. No jugular venous distention. CHEST: Bilateral decreased breath sounds, but very poor inspiratory effort. CARDIOVASCULAR: S1 and S2, regular. ABDOMEN: Soft, nontender. EXTREMITIES: Show trace edema. LABORATORY TESTS: Hemoglobin 12.7, platelet count 141, WBC count 9.8. Sodium 147, potassium 3.4, BUN 27, creatinine 0.9. Sodium has steadily coming down from a peak of 159 three days ago and is down to 147 now. ASSESSMENT AND PLAN: 1. Hypernatremia. Sodium has come down significantly from 159 to current level of 147. This is with D5 water that she is getting at 100 mL per hour currently. I would continue with the dextrose water, it does not look like she is alert and oriented enough to actually eat and drink enough amount. Creatinine is down to baseline. Potassium is slightly low and has been written to get oral potassium. Continue current management of D5 water. MTDD
[2016-07-28 13:48] VITALS: O2SAT 98
[2016-07-28 14:18] VITALS: BP 136/83; PULSE 69; TEMP 36.8; O2SAT 98
[2016-07-28] MEDS: WARFARIN SOD 2 MG TAB PO SCH (17:47)
[2016-07-28] MEDS: ATORVASTATIN 20 MG TAB PO SCH (22:52)
[2016-07-28] MEDS: LATANOPROST 0.005% OP SOLN 2.5 ML BTL OPB SCH (22:53)
[2016-07-29 00:18] VITALS: BP 145/77; PULSE 68; TEMP 36.7; O2SAT 100
[2016-07-29] MEDS: LEVOTHYROXINE 50 MCG TAB PO SCH (06:29)
[2016-07-29 07:04] VITALS: BP 158/84; PULSE 69; TEMP 36.4; O2SAT 98
[2016-07-29 07:14] LABS: INR 2.6 (0.9-1.1); PROTHROMBIN TIME (PATIENT) 29.2 SECONDS (9.0-12.0)
[2016-07-29 07:22] LABS: CALCIUM 8.2 mg/dl (8.5-10.1); CREATININE 0.97 mg/dl (0.60-1.20); POTASSIUM 3.9 mmol/L (3.5-5.1)
[2016-07-29 08:00] VITALS: O2SAT 98
[2016-07-29] MEDS: CLOPIDOGREL BISULFATE 75 MG TAB PO SCH (08:26)
[2016-07-29] MEDS: ISOSORBIDE MONONITRATE 60 MG TABCR PO SCH (08:27)
[2016-07-29] MEDS: DEXTROSE 5% 1000ML 1,000 ML IV SCH (08:27)
[2016-07-29] MEDS: RANITIDINE HCL 150 MG TAB PO SCH (08:27)
[2016-07-29] MEDS: CARVEDILOL 25 MG TAB PO SCH (08:27)
[2016-07-29] MEDS: INSULIN ASPART 100 UNITS/ML 3 ML PEN SC SCH ×3 (08:33→16:30)
[2016-07-29] MEDS: CEFTRIAXONE SOD INJ 1 GM in DEXTROSE 5% ADD-VANTAGE 50ML 50 ML IV SCH (10:19)
[2016-07-29 11:21] VITALS: BP 158/84; PULSE 69; TEMP 36.4; O2SAT 98
--- NOTE | 2016-07-29 11:52 | Pharmacy Progress Note ---
Glycemic Control: Progress Nt Date of Service Jul 29, 2016. Scope Glycemic Pharmacist consulted by Esha Gonzalez on 07/25/2016 for glycemic control and to write orders per [facility] inpatient glycemic control protocol. Objective Accuchecks BSG (last 24hrs): Test 07/28/16 11:37 07/28/16 12:46 07/28/16 17:07 07/28/16 20:27 Bedside Glucose 256 mg/dl (70-90) 245 mg/dl (70-90) 124 mg/dl (70-90) 147 mg/dl (70-90) Test 07/29/16 06:38 07/29/16 07:36 Random Glucose 222 mg/dl (70-99) Bedside Glucose 209 mg/dl (70-90) Laboratory Data (last 24hrs) Test 07/29/16 06:38 Anion Gap 5.0 mmol/L BUN/Creatinine Ratio 21.0 Blood Urea Nitrogen 20 mg/dl Creatinine 0.97 mg/dl Potassium Level 3.9 mmol/L Sodium Level 145 mmol/L HbA1c: Test 07/26/16 06:05 Hemoglobin A1c 8.4 % (4.5-5.6) H Recent Pertinent Medications Outpatient Anti-diabetic Regimen: * Lantus 12 units HS plus Novolog 4 units BB, 6 units before lunch, and 4 units before dinner * A1c = 8.4 % 07/26/16 The patient is currently receiving: * Basal insulin: Lantus 6 units every 12 hours * Correctional Insulin: Novolog Correction per scale ACHS Goal Range: Low 120 mg/dL - High 160 mg/dL Correction Factor: 25 mg/dL/unit * Prandial insulin: Per carb ratio of 1 unit per 8 grams CHO consumed Risk Factors for Insulin Resistance: * Infection: UTI on Rocephin 1 gm IV daily * IVF: D5 @ 100 mls/hr * Diet: pureed Assessment & Plan ASSESSMENT: * ADA & AACE recommend a goal blood sugar range 140-180 mg/dl for the majority of critically ill & non-critically ill patients. However, more stringent targets may be selected in individual cases. 07/26/16 * Glycemic control has improved greatly over the past 24 hours; BSGs had been in upper 400's on admission, however are now down to upper 100's * Patient remains NPO at this time * Fasting BSGs are 177-196 at this time w/ 10 units of Lantus on board * Will continue current Lantus dose for next 24 hrs given continued NPO status * Hypernatremia still present, Na 157 this AM with repeat Na later today. May require more free water, i.e. D5W infusion - which may lead to deterioration in glycemic control. Should D5W infusion be required, will plan on changing BSG checks to Q 4 hrs and cover w/ NovoLog correction rather than changing basal insulin dose * CF and CR are reasonable starting points; CF has reduced BSGs nicely without overcorrection 07/27/16 * BSGs beginning to trend upwards again despite nothing by mouth over the past 24 hours * increase basal insulin by 20% * diet advanced * although carb ratio has not yet been fully tested, will tighten since patient is hyperglycemic 07/28/16 * BSGs elevated yesterday with 25 units of insulin administered (near home doses ). * Have not yet seen effect of increase in basal insulin * Will begin titrating toward once daily Lantus dosing for ease of transition at discharge * NovoLog parameters not quite aggressive enough as BSGs either stayed the same or ashlie post-prandially 07/29/2016 * Patient remains on D5 infusion at 100 mLs/hr since 07/26/2016; however her serum sodium has corrected to 145 today. Suspect that this infusion with be decreased or stopped today so I will not tighten any insulin orders. * Blood sugars yesterday were well controlled after the tightening of the carbohydrate ratio and correction factor. She required 29 units yesterday compared to 25 units the day before. I suspect this is from the continuous infusion of dextrose. * Patient was NPO on admission so Lantus was split into BID dosing. The patient is now on a diet and is stabilized. In order to transition back to once daily dosing of Lantus, will give a full home dose of Lantus 12 units at lunchtime today and then at bedtime on 07/30/2016. A tighter carbohydrate ratio of 1:5 and correction factor of 25:1 will be utilized for breakfast since the patient did not receive an AM Lantus dose. PLAN FOR INPATIENT GLYCEMIC CONTROL: * Changing Lantus to 12 units at lunchtime today then qHS dosing * Continuing correction factor 25 mg/dl/unit (except at breakfast today a correction factor of 15) * Continuing carb ratio to 1 unit per 8 grams CHO consumed (except at breakfast today a carb ratio of 5) * Continuing goal range of Low 120 mg/dL - High 160 mg/dL RECOMMENDATIONS FOR DISCHARGE: * Patient appears to have adequate controlled blood sugars at home consider continuing home regimen at discharge. Her HbA1C is within goal range based upon age, co-morbidities. etc. Patient requiring almost the same insulin inpatient as compared to outpatient regimen which confirms outpatient regimen may be adequate. Thank you.
[2016-07-29] MEDS ORDERED: INSULIN GLARGINE SOLOSTAR 100 UNITS/ML 3 ML PEN SC SCH (12:00)
--- NOTE | 2016-07-29 12:37 | Progress Note ---
Medicine Progress Note Date & Time of Visit: Jul 29, 2016 at 12:21. Subjective patient seen being assisted eating lunch awake, alert, nods /shakes head to answer questions appears comfortable denies pain, shortness of breath no other symptoms Objective Last 8 Hrs Date Time Temp Pulse Resp B/P Pulse Ox O2 Delivery O2 Flow Rate FiO2 07/29/16 11:21 36.4 69 18 98 Nasal Cannula 07/29/16 08:00 98 Nasal Cannula 2.0 07/29/16 07:04 36.4 69 18 158/84 98 2.0 Physical Exam: General- alert, no accessory muscle use, not in distress Eyes- anicteric Neck- no JVD Lungs- clear breath sounds, no rales/ no wheezes Heart- normal rate, regular rhythm; no murmurs Abdomen- normal bowel sounds, non distended, soft, nontender Extremities- bipedal edema- improving, no calf tenderness right foot: (+) bruising on the anterior ankle region and toe left foot: (+) bruising on the dorsal area, and toe Neuro- no facial asymmetry, moves upper extremities right > left (chronic per daughter) Skin- warm & dry Laboratory Results: Last 24 Hours Test 07/28/16 12:46 07/28/16 17:07 07/28/16 20:27 07/29/16 06:38 Bedside Glucose 245 mg/dl 124 mg/dl 147 mg/dl Prothrombin Time 29.2 SECONDS Prothromb Time International Ratio 2.6 Sodium Level 145 mmol/L Potassium Level 3.9 mmol/L Chloride Level 111 mmol/L Carbon Dioxide Level 29 mmol/L Anion Gap 5.0 mmol/L Blood Urea Nitrogen 20 mg/dl Creatinine 0.97 mg/dl Est Creatinine Clear Calc Drug Dose 35.4 ml/min Estimated GFR () 60.4 Estimated GFR (Non- 52.1 BUN/Creatinine Ratio 21.0 Random Glucose 222 mg/dl Calcium Level 8.2 mg/dl Test 07/29/16 07:36 07/29/16 11:21 Bedside Glucose 209 mg/dl 198 mg/dl Assessment & Plan 86 year old female with history of DM, HTN, CKD 3, CAD, P A fib on Coumadin, Alzheimer presenting with altered mental status ALTERED MENTAL STATUS LIKELY ENCEPHALOPATHY, MULTIFACTORIAL: UTI, PROTEUS urine culture (+) Proteus resistant to Cipro, Levaquin, Bactrim remained afebrile, clinically improved overall changed Cefepime to Ceftriaxone IV (received total of 4 days of antibiotics) Cephalexin 500mg BID x 6 more days to complete 10 days therapy HYPERGLYCEMIA presented with BSG 285, improved A1c 8.4 ISS and Lantus BID given Pharm consulted monitor Blood sugar AC and HS HYPERNATREMIA presented with Na 159, hypovolemic 1/2 NSS ordered, changed to d5w Na improving, still at 145 today Nephro consulted ensure adequate daily fluid intake repeat Na in 2 days, then monitor regularly HYPERTENSIVE URGENCY improved resumed usual PO meds except Losartan, Lisinopril for acute renal failure- patient has CKD, may need to change to Amlodipine or Hydralazine if BP not at goal PRN Labetalol ordered monitor BP daily seems to have no new focal deficits CT head: possible subacute to chronic right basal ganglia infarct ELEVATED LACTIC ACID resolved given IV fluids MILD TROPONIN ELEVATION likely from CKD, Demand Ischemia echo: no mention of wall motion abnormalities Pacemaker Interrogation PAROXYSMAL A FIB on Carvedilol, Coumadin INR 2.6 resume coumadin SUBACUTE TO CHRONIC RIGHT BASAL GANGLIA INFARCT seen on CT head no new focal deficits per discussion with daughter already on Aspirin, Coumadin monitor BP CHF DIASTOLIC TYPE echo; n The left ventricle is normal in size. n There is moderate concentric left ventricular hypertrophy. n There is severe hypokinesis to akinesis of the base and mid inferior wall n Left ventricular systolic function is normal. n Ejection Fraction = 55-60%. n Diastolic dysfunction, Grade III (restrictive pattern), consistent with markedly increased left atrial pressure. n The aortic valve leaflets are moderately calcified with mild restriction in leaflet mobility. n Mild valvular aortic stenosis. n There is moderate mitral annular calcification. n There is moderate mitral regurgitation. n There is mild to moderate tricuspid regurgitation. n Right ventricular systolic pressure is severely elevated at >60mmHg. -- hypovolemic, hypernatremic on admission given IV fluids, Lasix held -- decrease Lasix to 20mg twice a week monitor volume status and Na level closely HYPOTHYROIDISM TSH: normal continue Lthy ALZHEIMER patient's baseline per daughter: does not talk much, forgetful, confused, but pleasant DVT PROPHYLAXIS on coumadin- INR thereapeutic DISPO return to [facility] today ff up with Dr. Hogue in 3-5 days Current Inpatient Medications: Current Inpatient Medications Medications (Trade) Dose Ordered Sig/Karlee Route Start Time Stop Time Status Last Admin Dose Admin Acetaminophen (Tylenol Tab) 650 mg Q4H PRN PO 07/25/16 20:30 08/24/16 20:29 07/28/16 23:18 650 MG Ondansetron HCl (Zofran Inj) 4 mg Q6H PRN IV 07/25/16 20:30 08/24/16 20:29 Nitroglycerin (Nitrostat Tab) 0.4 mg UD PRN SL 07/25/16 20:30 08/24/16 20:29 Atorvastatin Calcium (Lipitor Tab) 20 mg QPM PO 07/25/16 21:00 08/24/16 20:59 07/28/16 22:52 20 MG Carvedilol (Coreg Tab) 25 mg Q12 PO 07/25/16 21:00 08/24/16 20:59 07/29/16 08:27 25 MG Clopidogrel Bisulfate (plAVix TAB) 75 mg DAILY PO 07/26/16 09:00 08/25/16 08:59 07/29/16 08:26 75 MG Isosorbide Mononitrate (Imdur Ext Rel Tab) 60 mg QAM PO 07/26/16 09:00 08/25/16 08:59 07/29/16 08:27 60 MG Latanoprost (Xalatan Oph Soln) 1 drops QPM OPB 07/25/16 21:00 08/24/16 20:59 07/28/16 22:53 1 DROPS Levothyroxine Sodium (Synthroid Tab) 50 mcg DAILYBB PO 07/26/16 06:00 08/25/16 05:59 07/29/16 06:29 50 MCG Ranitidine HCl (zANTac TAB) 150 mg BID PO 07/25/16 21:00 08/24/16 20:59 07/29/16 08:27 150 MG Glucose (Glucose 40% Gel) 15-30 GRAMS 15 GRAMS... UD PRN PO 07/25/16 21:00 08/24/16 20:59 Glucose (Glucose Chew Tab) 4-8 Tablets 4 Tabl... UD PRN PO 07/25/16 21:00 08/24/16 20:59 Dextrose (Dextrose 50% 50ML Syringe) 25-50ML OF 50% DW IV FOR... UD PRN IV 07/25/16 21:00 08/24/16 20:59 Glucagon (Glucagon Inj) 1 mg UD PRN SQ 07/25/16 21:00 08/24/16 20:59 Labetalol HCl (Normodyne IV) 10 mg Q6H PRN IV 07/25/16 21:00 08/24/16 20:59 07/26/16 16:27 10 MG Miscellaneous Information 1 ea 1 ea DAILY PRN N/A 07/25/16 21:00 08/24/16 20:46 Dextrose 1,000 ml @ 100 mls/hr Q10H IV 07/26/16 19:30 08/25/16 19:29 07/29/16 08:27 100 MLS/HR Ceftriaxone Sodium/Dextrose (Rocephin Inj/ Dextrose Add-Kamas 50ML) 50 ml @ 100 mls/hr DAILY@1000 IV 07/27/16 10:00 08/06/16 09:59 07/29/16 10:19 100 MLS/HR Insulin Aspart (novoLOG ASPART) SLIDING SCALE If C... ACHS SC 07/27/16 11:30 08/26/16 11:29 07/29/16 08:33 5 UNITS Warfarin Sodium (Coumadin Tab) 2 mg DAILY@16 PO 07/28/16 16:00 08/27/16 15:59 07/28/16 17:47 2 MG Insulin Glargine (Lantus Solostar Pen) 12 unit HS SC 07/29/16 12:00 08/28/16 11:59
[2016-07-29] MEDS ORDERED: [UNRECOGNIZED DRUG - CODE] PO (12:50)
[2016-07-29] MEDS ORDERED: LSX20 PO (12:50)
--- NOTE | 2016-07-29 12:59 | Discharge Instructions ---
Discharge Instructions Date of Service Jul 29, 2016. Admission Reason for Admission: Ams, Hyperglycemia, Hypernatremia, Hypertension, Discharge Discharge Diagnosis / Problem: ALTERED MENTAL STATUS- UTI, HYPERNATREMIA, HYPERGLYCEMIA Discharge Goals Goal(s): Diagnostic testing, Therapeutic intervention Activity Recommendations Activity Level: Assistance Required Therapies: Occupational Therapy . Additional Information Patient informed of condition: Yes Advance Directives: No (UNKNOWN) DNR: Yes Level of Care: Skilled Communicable Disease: No Prognosis: Stable Instructions / Follow-Up Instructions / Follow-Up PLEASE REPEAT NA AND K IN 2 DAYS, THEN MONITOR REGULARLY. (RE: HYPERNATREMIA, HYPOKALEMIA). LASIX DECREASED TO 3X A WEEK. PLEASE MONITOR NA AND VOLUME STATUS CLOSELY. MONITOR BSG'S AC AND HS. REPEAT EKG AND RESUME CITALOPRAM IF QT INTERVAL IMPROVED. PLEASE REFER TO ACCOMPANYING HOSPITAL DISCHARGE SUMMARY FOR FURTHER DETAILS. FOLLOW UP WITH PRIMARY CARE PHYSICIAN C/O KAHLIL MARVIN ON FRIDAY AUGUST 05, 2016 1:25PM. Current Hospital Diet Patient's current hospital diet: Diabetes Type 2 Diet, AHA Diet (Heart Healthy) Discharge Diet Recommended Diet: AHA Diet (Heart Healthy), Diabetes Type 2 Diet Diet Texture: Pureed (blended smooth) (NO STRAWS) Liquid Consistency: [place] Thick Pending Studies Studies pending at discharge: yes List of pending studies: REPEAT SODIUM AND POTASSIUM LEVEL IN 2 DAYS, THEN REGULARLY Physician Orders On Transfer Special Precautions: PLEASE REPEAT NA AND K IN 2 DAYS, THEN MONITOR REGULARLY. (RE: HYPERNATREMIA, HYPOKALEMIA). LASIX DECREASED TO 3X A WEEK. PLEASE MONITOR NA AND VOLUME STATUS CLOSELY. MONITOR BSG'S AC AND HS. REPEAT EKG AND RESUME CITALOPRAM IF QT INTERVAL IMPROVED. PLEASE REFER TO ACCOMPANYING HOSPITAL DISCHARGE SUMMARY FOR FURTHER DETAILS. FOLLOW UP WITH PRIMARY CARE PHYSICIAN C/O KAHLIL MARVIN ON FRIDAY AUGUST 05, 2016 1:25PM. Laboratory Results Hemoglobin A1c Test 07/26/16 06:05 Range/Units Estimated Average Glucose 194 mg/dl Hemoglobin A1c 8.4 H 4.5-5.6 % Medical Emergencies . Who to Call and When: Medical Emergencies: If at any time you feel your situation is an emergency, please call 911 immediately. . Non-Emergent Contact Non-Emergency issues call your: Primary Care Provider Call Non-Emergent contact if: you have a fever, you have any medication questions . Past History Medical & Surgical History: (1) Lactic acidosis (2) Hyperglycemia (3) Hypernatremia (4) Altered mental status (5) Hypertension (6) HTN (hypertension) (7) HLD (hyperlipidemia) (8) CAD (coronary artery disease) (9) PAF (paroxysmal atrial fibrillation) (10) Alzheimer disease (11) IDDM (insulin dependent diabetes mellitus) (12) CKD (chronic kidney disease), stage III (13) Hypothyroidism (14) CVA (cerebral vascular accident) (15) Pacemaker (16) History of Coumadin therapy (17) CHF (congestive heart failure) (18) History of cholecystectomy (19) History of appendectomy (20) H/O: hysterectomy (21) History of back surgery . "Provider Documentation" section prepared by Paul Kumar. Core Measure Problem Core Measures: None
--- NOTE | 2016-07-29 13:06 | Discharge Summary ---
Discharge Summary Date of Service Jul 29, 2016. Discharge Summary Admission Date: Jul 25, 2016 at 20:25 Discharge Date: Jul 29, 2016 Discharge Disposition: longterm facility Principal Diagnosis: ALTERED MENTAL STATUS LIKELY ENCEPHALOPATHY, MULTIFACTORIAL: UTI, PROTEUS HYPERGLYCEMIA HYPERNATREMIA HYPERTENSIVE URGENCY Secondary Diagnoses/Problems: PLEASE REFER TO HOSPITAL COURSE BELOW. Procedures: CT OF THE HEAD WITHOUT CONTRAST CLINICAL HISTORY: Altered mental status. Hyperglycemia. COMPARISON STUDY: Head CT May 04, 2014. CT DOSE: 537.48 mGy.cm TECHNIQUE: Helical axial images of the head were obtained without IV contrast. Automated exposure control was utilized for the study. FINDINGS: No acute intracranial hemorrhage, midline shift or mass effect is present. Ventricular system is stable. Basilar cisterns are patent. There are no extra-axial collections. A 1.2 cm hypodensity within the right basal ganglia is new since prior exam of May 04, 2014. There is an old lacunar infarct within left basal ganglia. There are no CT findings to suggest acute dural sinus thrombosis or acute territorial infarct. There are no significant calvarial abnormalities. Visual portions of the sinuses and the mastoid air cells are clear. IMPRESSION: 1. No acute intracranial hemorrhage or mass effect. 2. 1.2 cm hypodensity within the right basal ganglia. This lacunar infarct is age-indeterminate but likely subacute to chronic. Consultations: [employer] DR. MCCLOUD Pending Studies/Follow-Up: PLEASE REPEAT NA AND K IN 2 DAYS, THEN MONITOR REGULARLY. (RE: HYPERNATREMIA, HYPOKALEMIA). LASIX DECREASED TO 3X A WEEK. PLEASE MONITOR NA AND VOLUME STATUS CLOSELY. MONITOR BSG'S AC AND HS. REPEAT EKG AND RESUME CITALOPRAM IF QT INTERVAL IMPROVED. PLEASE REFER TO HOSPITAL COURSE BELOW FOR FURTHER DETAILS. FOLLOW UP WITH PRIMARY CARE PHYSICIAN C/O KAHLIL MARVIN ON FRIDAY AUGUST 05, 2016 1:25PM. Medication Reconciliation New Medications: Cefuroxime Axetil (Ceftin Susp) 250 Mg/5 Ml Susp 5 ML PO Q12H for 6 Days, #60 ML 0 Refills Changed Medications: Furosemide (Furosemide) 20 Mg Tab 20 MG PO UD, #20 TABS (Changed from: QAM) 1 tab po 3 times a week Continued Medications: Acetaminophen (Tylenol) 325 Mg Tab 650 MG PO Q4 PRN for Pain, TAB DO NOT EXCEED 4 GM PER DAY Alum & Mag Hydrox-Simethicone (Maalox Advanced) 1 Radha Radha 30 ML PO ACHS PRN for INDIGESTION Alum & Mag Hydrox-Simethicone (Rulox) 1 Radha Radha 2 TBS PO QID Atorvastatin (Lipitor) 20 Mg Tab 20 MG PO QPM, TAB Calcium Carbonate-Vitamin D (Oyster Shell Calcium/D) 1 Tab Tab 1 TAB PO DAILY 500-200. BEFORE EVENING MEAL. Carvedilol (Carvedilol) 25 Mg Tab 25 MG PO Q12, #60 TAB Cholecalciferol (Vitamin D3) 1,000 Unit Tab 1000 INTER.UNIT PO QAM, TAB 3 Refills Clopidogrel (Plavix) 75 Mg Tab 75 MG PO DAILY, TAB Dicyclomine Hcl (Dicyclomine Hcl) 10 Mg Cap 10 MG PO QID, CAP 3 Refills Insulin Aspart (Novolog) 100 Units/Ml Inj 6 UNITS SQ LUNCH Insulin Aspart (Novolog) 100 Units/Ml Inj 4 UNITS SQ BID Insulin Glargine (Lantus) 100 Unit/Ml Inj 12 UNITS SQ HS, VIAL Isosorbide Mononitrate (Isosorbide Mononitrate ER) 60 Mg Tabcr 60 MG PO QAM Latanoprost (Xalatan 0.005% Oph Patti) 0.005 % Patti 1 DROP OPB QPM Levothyroxine Sodium (Synthroid) 50 Mcg Tab 50 MCG PO QAM Loratadine (Claritin) 10 Mg Tab 10 MG PO DAILY, TAB Nitroglycerin (Nitrostat) 0.4 Mg Tab 0.4 MG UT PRN, BTL Potassium Chloride (Klor-Con M20) 20 Meq Tabcr 20 MEQ PO QAM Ranitidine (Zantac) 150 Mg Tab 150 MG PO BID, TAB Warfarin Sod (Coumadin) 2.5 Mg Tab 2 TAB PO DAILY for 90 Days, #180 TAB 3 Refills Friday, Friday Warfarin Sod (Coumadin) 2.5 Mg Tab 2.5 MG PO UD, TAB all other days Discontinued Medications: Citalopram Hydrobromide (Celexa) 10 Mg Tab 5 MG PO DAILY, TAB Lisinopril (Lisinopril) 20 Mg Tab 20 MG PO QAM, #30 TAB Losartan Potassium (Cozaar) 100 Mg Tab 100 MG PO HS, TAB Admission Information HPI (per Admitting provider): Patient seen and examined. 86 year old female with PMHx of IDDM, HTN, PAF, CAD, HTN, CKD stage 3, Alzheimer's disease and other problems listed below presents to the ED from [facility] with AMS and hyperglycemia. When speaking with the patient she is lethargic, she does not follow commands and she states she feels terrible. Radha Gleason reports that the patient was feeling like herself this AM. She was talking with staff eating breakfast and following commands. Throughout the day she became more and more lethargic and BSG started reading "high." She spiked a temp of 100.6 and was evaluated by Radha GUILLORY and was referred to the ED for further workup. In the ED patient is hypertensive with SBP >200, CT head is negative for acute changes, Na+ is 155, BSG is 498, Crea 1.8, Lactate is 3.24. Troponin is 0.454. She received Labetolol, Insulin and IVFs. BP has improved. She will be admitted for further workup and treatment. Physical Exam (per Admitting): General Appearance: + pertinent finding (Elderly 86 year old female lying in bed lethargic moaning but in no respiratory distress ) Head: normocephalic, atraumatic Eyes: PERRL, sclerae normal ENT: normal ENT inspection Neck: supple, no JVD Respiratory/Chest: chest non-tender, lungs clear, normal breath sounds, no respiratory distress, no accessory muscle use Cardiovascular: regular rate, rhythm, no gallop, no JVD, no murmur, normal peripheral pulses Abdomen/GI: normal bowel sounds, non tender, soft Extremities/Musculoskelatal: no calf tenderness, normal capillary refill, + pedal edema (+1) Neurologic/Psych: + pertinent finding (Lethargic, does not follow commands, moaning, spontaneously moves all extremities ) Skin: + pertinent finding (scattered ecchymosis ) Lymphatic: no adenopathy Hospital Course 86 year old female with history of DM, HTN, CKD 3, CAD, P A fib on Coumadin, Alzheimer presenting with altered mental status ALTERED MENTAL STATUS LIKELY ENCEPHALOPATHY, MULTIFACTORIAL: UTI, PROTEUS urine culture (+) Proteus resistant to Cipro, Levaquin, Bactrim remained afebrile, clinically improved overall changed Cefepime to Ceftriaxone IV (received total of 4 days of antibiotics) Cefuroxime 250mg BID x 6 more days to complete 10 days therapy HYPERGLYCEMIA presented with BSG 285, improved A1c 8.4 ISS and Lantus BID given Pharm consulted monitor Blood sugar AC and HS HYPERNATREMIA presented with Na 159, hypovolemic 1/2 NSS ordered, changed to d5w Na improving, still at 145 today Nephro consulted ensure adequate daily fluid intake repeat Na in 2 days, then monitor regularly HYPERTENSIVE URGENCY improved resumed usual PO meds except Losartan, Lisinopril for acute renal failure- patient has CKD, may need to change to Amlodipine or Hydralazine if BP not at goal PRN Labetalol ordered monitor BP daily seems to have no new focal deficits CT head: possible subacute to chronic right basal ganglia infarct ELEVATED LACTIC ACID resolved given IV fluids MILD TROPONIN ELEVATION likely from CKD, Demand Ischemia echo: no mention of wall motion abnormalities Pacemaker Interrogation PAROXYSMAL A FIB on Carvedilol, Coumadin INR 2.6 resume coumadin SUBACUTE TO CHRONIC RIGHT BASAL GANGLIA INFARCT seen on CT head no new focal deficits per discussion with daughter already on Aspirin, Coumadin monitor BP CHF DIASTOLIC TYPE echo; n The left ventricle is normal in size. n There is moderate concentric left ventricular hypertrophy. n There is severe hypokinesis to akinesis of the base and mid inferior wall n Left ventricular systolic function is normal. n Ejection Fraction = 55-60%. n Diastolic dysfunction, Grade III (restrictive pattern), consistent with markedly increased left atrial pressure. n The aortic valve leaflets are moderately calcified with mild restriction in leaflet mobility. n Mild valvular aortic stenosis. n There is moderate mitral annular calcification. n There is moderate mitral regurgitation. n There is mild to moderate tricuspid regurgitation. n Right ventricular systolic pressure is severely elevated at >60mmHg. -- hypovolemic, hypernatremic on admission given IV fluids, Lasix held -- decrease Lasix to 20mg twice a week monitor volume status and Na level closely HYPOTHYROIDISM TSH: normal continue Lthy ALZHEIMER patient's baseline per daughter: does not talk much, forgetful, confused, but pleasant QT interval prolonged on last 2 ekgs (QT corrected 529) repeat EKG and resume if QT interval improves, then monitor QT interval while on Citalopram MEDICATIONS reevaluate need for Dicyclomine and Rulox patient has not received them inpatient with no GI symptoms DVT PROPHYLAXIS on coumadin- INR thereapeutic DISPO return to [facility] today ff up with PCP c/o KAHLIL Marvin on Friday08/06/16 at 1:25pm. Total time spent on discharge = 60 minutes This includes examination of the patient, discharge planning, medication reconciliation, and communication with other providers. Discharge Instructions Discharge Instructions Date of Service Jul 29, 2016. Admission Reason for Admission: Ams, Hyperglycemia, Hypernatremia, Hypertension, Discharge Discharge Diagnosis / Problem: ALTERED MENTAL STATUS- UTI, HYPERNATREMIA, HYPERGLYCEMIA Discharge Goals Goal(s): Diagnostic testing, Therapeutic intervention Activity Recommendations Activity Level: Assistance Required Therapies: Occupational Therapy . Additional Information Patient informed of condition: Yes Advance Directives: No (UNKNOWN) DNR: Yes Level of Care: Skilled Communicable Disease: No Prognosis: Stable Instructions / Follow-Up Instructions / Follow-Up PLEASE REPEAT NA AND K IN 2 DAYS, THEN MONITOR REGULARLY. (RE: HYPERNATREMIA, HYPOKALEMIA). LASIX DECREASED TO 3X A WEEK. PLEASE MONITOR NA AND VOLUME STATUS CLOSELY. MONITOR BSG'S AC AND HS. REPEAT EKG AND RESUME CITALOPRAM IF QT INTERVAL IMPROVED. PLEASE REFER TO ACCOMPANYING HOSPITAL DISCHARGE SUMMARY FOR FURTHER DETAILS. FOLLOW UP WITH PRIMARY CARE PHYSICIAN C/O KAHLIL MARVIN ON FRIDAY AUGUST 05, 2016 1:25PM. Current Hospital Diet Patient's current hospital diet: Diabetes Type 2 Diet, AHA Diet (Heart Healthy) Discharge Diet Recommended Diet: AHA Diet (Heart Healthy), Diabetes Type 2 Diet Diet Texture: Pureed (blended smooth) (NO STRAWS) Liquid Consistency: [place] Thick Pending Studies Studies pending at discharge: yes List of pending studies: REPEAT SODIUM AND POTASSIUM LEVEL IN 2 DAYS, THEN REGULARLY Physician Orders On Transfer Special Precautions: PLEASE REPEAT NA AND K IN 2 DAYS, THEN MONITOR REGULARLY. (RE: HYPERNATREMIA, HYPOKALEMIA). LASIX DECREASED TO 3X A WEEK. PLEASE MONITOR NA AND VOLUME STATUS CLOSELY. MONITOR BSG'S AC AND HS. REPEAT EKG AND RESUME CITALOPRAM IF QT INTERVAL IMPROVED. PLEASE REFER TO ACCOMPANYING HOSPITAL DISCHARGE SUMMARY FOR FURTHER DETAILS. FOLLOW UP WITH PRIMARY CARE PHYSICIAN C/Gerson MARVIN ON FRIDAY AUGUST 05, 2016 1:25PM. Laboratory Results Hemoglobin A1c Test 07/26/16 06:05 Range/Units Estimated Average Glucose 194 mg/dl Hemoglobin A1c 8.4 H 4.5-5.6 % Medical Emergencies . Who to Call and When: Medical Emergencies: If at any time you feel your situation is an emergency, please call 911 immediately. . Non-Emergent Contact Non-Emergency issues call your: Primary Care Provider Call Non-Emergent contact if: you have a fever, you have any medication questions . Past History Medical & Surgical History: (1) Lactic acidosis (2) Hyperglycemia (3) Hypernatremia (4) Altered mental status (5) Hypertension (6) HTN (hypertension) (7) HLD (hyperlipidemia) (8) CAD (coronary artery disease) (9) PAF (paroxysmal atrial fibrillation) (10) Alzheimer disease (11) IDDM (insulin dependent diabetes mellitus) (12) CKD (chronic kidney disease), stage III (13) Hypothyroidism (14) CVA (cerebral vascular accident) (15) Pacemaker (16) History of Coumadin therapy (17) CHF (congestive heart failure) (18) History of cholecystectomy (19) History of appendectomy (20) H/O: hysterectomy (21) History of back surgery . "Provider Documentation" section prepared by Paul Kumar. Core Measure Problem Core Measures: None
[2016-07-29 13:30] VITALS: O2SAT 95
[2016-07-29] MEDS: WARFARIN SOD 2 MG TAB PO SCH (16:41)
[2016-11-20] MEDS ORDERED: LCTX PO (11:52)
[2016-11-20] MEDS ORDERED: CEFU250T15 PO (11:52)
== END 2016-07-29 17:07 | DRG 637 ==
LOC: ENRESERVDT → ENRESERVTM → C.EDC 17:17 → EDBD 17:17 → C.2T 20:25 → C.MS4W 07-28 12:37
PROVIDERS: ADMIT Internal Medicine; ATTEND Internal Medicine
DX: E11.65 Type 2 diabetes mellitus with hyperglycemia (principal); G93.41 Metabolic encephalopathy; N17.9 Acute kidney failure, unspecified; E87.0 Hyperosmolality and hypernatremia; I24.8 Other forms of acute ischemic heart disease; N39.0 Urinary tract infection, site not specified; E87.2 Acidosis; I50.30 Unspecified diastolic (congestive) heart failure; I13.0 Hypertensive heart and chronic kidney disease with heart failure and stage 1 through stage 4 chronic kidney disease, or unspecified chronic kidney disease; N18.3 Chronic kidney disease, stage 3 (moderate); E86.1 Hypovolemia; I25.10 Atherosclerotic heart disease of native coronary artery without angina pectoris; I48.0 Paroxysmal atrial fibrillation; G30.9 Alzheimer's disease, unspecified; I16.0 Hypertensive urgency; E11.22 Type 2 diabetes mellitus with diabetic chronic kidney disease; E03.9 Hypothyroidism, unspecified; K21.9 Gastro-esophageal reflux disease without esophagitis; E78.5 Hyperlipidemia, unspecified; E87.6 Hypokalemia; Z95.0 Presence of cardiac pacemaker; I08.3 Combined rheumatic disorders of mitral, aortic and tricuspid valves; Z79.01 Long term (current) use of anticoagulants; Z79.899 Other long term (current) drug therapy; Z86.73 Personal history of transient ischemic attack (TIA), and cerebral infarction without residual deficits; Z79.4 Long term (current) use of insulin; Z23 Encounter for immunization; Z79.02 Long term (current) use of antithrombotics/antiplatelets; Z66 Do not resuscitate

== ENCOUNTER 2016-11-17 08:59 | Inpatient (IN) | payer OTHER ==
[~2016-11-17] VITALS: Ht 154.9 cm; Wt 69.9 kg
[~2016-11-17 08:59] MED LIST changes: +ALUM-76 PO; -BISA10SU38 PR; +CHOL1000 PO; +CLR10 PO; +CMD/25 PO; -CMD3 PO; -CPR500 PO; +DICY10CA12 PO; -HMLI SQ; -INSDGI PO; +INSDGI SQ; -LCTX PO; -LOSA100T65 PO; -LSN20 PO; +LSX20 PO; +MCRK20 PO; -MOML PO; +NVLG SQ; -OMEP20CA9 PO; +SYN50 PO; +ZNTT/150 PO; +[UNRECOGNIZED DRUG - CODE] PO
[2016-11-17] MEDS ORDERED: LISI10TA PO (09:11)
[2016-11-17] MEDS ORDERED: SODIUM CHLORIDE 0.9% 1000ML 1,000 ML IV STA (09:11)
[2016-11-17] MEDS ORDERED: SODIUM CHLORIDE 0.9% 1000ML 250 ML IV STA (09:11)
[2016-11-17] MEDS ORDERED: DEXTROSE 50% 50 ML SYR IV STA (09:31)
[2016-11-17] MEDS ORDERED: DEXTROSE 50% 50 ML SYR ONE (09:31)
[2016-11-17 09:36] LABS: BASO % 0.4 %; BASO ABS # 0.03 K/uL (0-0.2); COMPLETE YES; EOS % 1.3 %; HEMATOCRIT 38.8 % (37-47); IG% 0.3 %; LYMPH ABS # 0.67 K/uL (1.2-3.4); MEAN CELL VOLUME 92.8 fL (80-100); MEAN CORPUSCULAR HEMOGLOBIN 30.1 pg (25-34); MEAN CORPUSCULAR HGB CONC 32.5 g/dl (32-36); MEAN PLATELET VOLUME 9.7 fL (7.4-10.4); MONO % 11.4 %; NEUT % 77.6 %; PLATELET COUNT 182 K/uL (130-400); RED BLOOD COUNT 4.18 M/uL (4.2-5.4); WHITE BLOOD COUNT 7.45 K/uL (4.8-10.8)
--- NOTE | 2016-11-17 09:42 | EMERGENCY ROOM VISIT NOTE ---
History Report prepared by Danelle: Blanca Cruz Under the Supervision of: Dr. Yuri Mccabe M.D. First contact with patient: 09:05 Stated Complaint: L-sided weakness History of Present Illness The patient is a 86 year old female who presents to the Emergency Room with complaints of possible stroke-like symptoms beginning [employer] WORK[employer]. The patient is a resident at [facility]. At 7:50am today staff found the patient to be more altered than usual and noticed a left-sided facial droop. The patient was brought to the ED by ambulance for further evaluation. Her BSG was 72 [employer]ULT[employer] WORKER. She was not given any medications en route. She is on Coumadin. Per the patient's daughter, the patient is normally non-verbal and says 1-2 words at best. The history is limited secondary to the patient's AMS. Source of History: family (daughter), [facility] notes, EMS History Limited By: AMS Onset: 7:50am today Position: other (global) Quality: other (stroke-like) Timing: constant Review of Systems The ROS is limited secondary to the patient's AMS. Past Medical & Surgical Medical Problems: (1) Alzheimer disease (2) CAD (coronary artery disease) (3) CHF (congestive heart failure) (4) CKD (chronic kidney disease), stage III (5) CVA (cerebral vascular accident) (6) History of Coumadin therapy (7) HLD (hyperlipidemia) (8) HTN (hypertension) (9) Hypothyroidism (10) IDDM (insulin dependent diabetes mellitus) (11) Pacemaker (12) PAF (paroxysmal atrial fibrillation) Surgical Problems: (1) H/O: hysterectomy (2) History of appendectomy (3) History of back surgery (4) History of cholecystectomy Family History Patient reports no known family medical history. Social History Smoking Status: Unknown if Ever Smoked Alcohol Use: none Housing Status: [facility] Occupation Status: retired Current/Historical Medications Scheduled Alum & Mag Hydrox-Simethicone (Rulox), 2 TBS PO QID Atorvastatin (Lipitor), 20 MG PO QPM Calcium Carbonate-Vitamin D (Oyster Shell Calcium/D), 1 TAB PO DAILY Carvedilol (Carvedilol), 25 MG PO Q12 Cholecalciferol (Vitamin D3), 1,000 INTER.UNIT PO QAM Clopidogrel (Plavix), 75 MG PO DAILY Dicyclomine Hcl (Dicyclomine Hcl), 10 MG PO TID Furosemide (Furosemide), 20 MG PO UD Insulin Aspart (Novolog), 6 UNITS SQ LUNCH Insulin Aspart (Novolog), 4 UNITS SQ BID Insulin Glargine (Lantus), 12 UNITS SQ HS Isosorbide Mononitrate (Isosorbide Mononitrate ER), 60 MG PO QAM Latanoprost (Xalatan 0.005% Oph Patti), 1 DROP OPB QPM Levothyroxine Sodium (Synthroid), 50 MCG PO QAM Lisinopril (Prinivil), 10 MG PO DAILY Nitroglycerin (Nitrostat), 0.4 MG UT PRN Potassium Chloride (Klor-Con M20), 20 MEQ PO QAM Warfarin Sod (Coumadin), 2 TAB PO DIRECTED Warfarin Sod (Coumadin), 2.5 MG PO UD Scheduled PRN Acetaminophen (Tylenol), 650 MG PO Q4 PRN for Pain Allergies Coded Allergies: Aspirin (Verified Allergy, Intermediate, unknown, 11/17/16) Codeine (Verified Allergy, Intermediate, unknown, 11/17/16) Red Dye (Verified Allergy, Intermediate, unknown, 11/17/16) Yellow Dye (Verified Allergy, Intermediate, unknown, 11/17/16) Adhesives (Verified Allergy, Unknown, TAPE, 11/17/16) Morphine (Unverified Allergy, Unknown, UNKNOWN, 11/17/16) Physical Exam Vital Signs Date Time Temp Pulse Resp B/P (MAP) Pulse Ox O2 Delivery O2 Flow Rate FiO2 11/17/16 11:00 70 22 96 11/17/16 10:48 70 20 98 Nasal Cannula 2.0 11/17/16 10:30 98 Nasal Cannula 2.0 11/17/16 10:12 70 20 105/77 97 Nasal Cannula 2.0 11/17/16 09:39 70 18 190/94 93 Nasal Cannula 3.0 11/17/16 09:09 35.6 70 16 168/118 97 Nasal Cannula 2.0 11/17/16 09:07 70 Physical Exam General: Well developed well nourished older female in no acute distress, breathing comfortably on room air. Opens eyes but non-verbal, which is apparently is baseline per daughter. HEENT: Normal cephalic atraumatic. Pupils are equal round and reactive to light. Extraocular movements are intact. Oropharynx is pink with moist mucous membranes. No swelling of the mouth lips or tongue. Neck: Supple with a midline trachea. No meningeal signs or stiffness, no JVD or bruits. No Stridor. Chest: Clear to auscultation bilaterally. No wheezes or rhonchi. No increased work of breathing. Heart: regular rate and rhythm. Abdomen: Soft nontender, nondistended without rebound guarding or rigidity. Extremities: Bruising on arms and legs. No cyanosis clubbing or edema. No calf tenderness or assymetry Spine/Back. Non tender to palpation. No CVA tenderness Skin: Good turgor without rashes. Neurologic exam: Cranial nerves two through 12 are intact. Motor and sensation are intact and symmetrical throughout. No facial droop on the left; however, opens left eye slightly less than right. Medical Decision & Procedures ER Provider Diagnostic Interpretation: Radiology results as stated below per my review and radiologist interpretation: HEAD CT NONCONTRAST CT DOSE: 537.48 mGy.cm HISTORY: Left-sided weakness. altered loc TECHNIQUE: Multiaxial CT images of the head were performed without the use of intravenous contrast. Automated exposure control was utilized for this study. A dose lowering technique was utilized adhering to the principles of ALARA. Comparison: None. Findings: The paranasal sinuses and mastoid air cells are clear. The calvarium and skull base are intact. There is no mass, hematoma, midline shift, acute infarct. White matter hypodensity is nonspecific but suggestive of microvascular ischemic change. The ventricles and sulci demonstrate mild age-related involutional changes. Old bilateral basal ganglia lacunar infarcts. Old left thalamic infarct. Impression: No acute intracranial abnormality. Atrophy and microvascular ischemic changes. Old basal ganglia and left thalamic lacunar infarcts. Electronically signed by: Jhony Silva M.D. 11/17/2016 10:28 AM Dictated Date/Time: 11/17/2016 10:24 AM CHEST ONE VIEW PORTABLE HISTORY: Atypical CHEST PAIN COMPARISON: Chest 07/25/2016. FINDINGS: The heart remains mildly enlarged. No pneumothorax. Left dual-chamber pacemaker. No definite pleural effusions. Bilateral perihilar interstitial and vascular thickening remains unchanged. This favors mild pulmonary vascular congestion. IMPRESSION: No change in the mild pulmonary basilar congestion without overt edema. Electronically signed by: Jhony Silva M.D. 11/17/2016 10:06 AM Dictated Date/Time: 11/17/2016 10:04 AM Laboratory Results 11/17/16 09:21 Red Blood Count 4.18, Mean Corpuscular Volume 92.8, Mean Corpuscular Hemoglobin 30.1, Mean Corpuscular Hemoglobin Concent 32.5, Mean Platelet Volume 9.7, Neutrophils (%) (Auto) 77.6, Lymphocytes (%) (Auto) 9.0, Monocytes (%) (Auto) 11.4, Eosinophils (%) (Auto) 1.3, Basophils (%) (Auto) 0.4, Neutrophils # (Auto ) 5.78, Lymphocytes # (Auto) 0.67, Monocytes # (Auto) 0.85, Eosinophils # (Auto ) 0.10, Basophils # (Auto) 0.03 11/17/16 09:21 Test 11/17/16 09:00 11/17/16 09:21 11/17/16 09:23 11/17/16 09:29 Urine Color YELLOW Urine Appearance CLEAR (CLEAR) Urine pH 6.5 (4.5-7.5) Urine Specific [place] 1.019 (1.000-1.030) Urine Protein NEG (NEG) Urine Glucose (UA) NEG (NEG) Urine Ketones NEG (NEG) Urine Occult Blood NEG (NEG) Urine Nitrite POS (NEG) Urine Bilirubin NEG (NEG) Urine Urobilinogen NEG (NEG) Urine Leukocyte Esterase SMALL (NEG) Urine WBC (Auto) 1-5 /hpf (0-5) Urine RBC (Auto) 0-4 /hpf (0-4) Urine Hyaline Casts (Auto) 0 /lpf (0-5) Urine Epithelial Cells (Auto) 5-10 /lpf (0-5) Urine Bacteria (Auto) 4+ (NEG) White Blood Count 7.45 K/uL (4.8-10.8) Red Blood Count 4.18 M/uL (4.2-5.4) Hemoglobin 12.6 g/dL (12.0-16.0) Hematocrit 38.8 % (37-47) Mean Corpuscular Volume 92.8 fL (80-100) Mean Corpuscular Hemoglobin 30.1 pg (25-34) Mean Corpuscular Hemoglobin Concent 32.5 g/dl (32-36) Platelet Count 182 K/uL (130-400) Mean Platelet Volume 9.7 fL (7.4-10.4) Neutrophils (%) (Auto) 77.6 % Lymphocytes (%) (Auto) 9.0 % Monocytes (%) (Auto) 11.4 % Eosinophils (%) (Auto) 1.3 % Basophils (%) (Auto) 0.4 % Neutrophils # (Auto) 5.78 K/uL (1.4-6.5) Lymphocytes # (Auto) 0.67 K/uL (1.2-3.4) Monocytes # (Auto) 0.85 K/uL (0.11-0.59) Eosinophils # (Auto) 0.10 K/uL (0-0.5) Basophils # (Auto) 0.03 K/uL (0-0.2) RDW Standard Deviation 48.4 fL (36.4-46.3) RDW Coefficient of Variation 14.3 % (11.5-14.5) Immature Granulocyte % (Auto) 0.3 % Immature Granulocyte # (Auto) 0.02 K/uL (0.00-0.02) Prothrombin Time 31.3 SECONDS (9.0-12.0) Prothromb Time International Ratio 2.8 (0.9-1.1) Activated Partial Thromboplast Time 36.6 SECONDS (21.0-31.0) Partial Thromboplastin Ratio 1.4 Anion Gap 5.0 mmol/L (3-11) Estimated GFR () 38.8 Estimated GFR (Non- 33.5 BUN/Creatinine Ratio 18.8 (10-20) Calcium Level 8.9 mg/dl (8.5-10.1) Total Bilirubin 0.9 mg/dl (0.2-1) Direct Bilirubin 0.4 mg/dl (0-0.2) Aspartate Amino Transf (AST/SGOT) 35 U/L (15-37) Alanine Aminotransferase (ALT/SGPT) 25 U/L (12-78) Alkaline Phosphatase 118 U/L (45-117) Total Creatine Kinase 168 U/L (26-192) Creatine Kinase MB 2.6 ng/ml (0.5-3.6) Creatine Kinase MB Ratio 1.5 (0-3.0) Total Protein 6.7 gm/dl (6.4-8.2) Albumin 2.7 gm/dl (3.4-5.0) Lipase 104 U/L (73-393) Bedside Lactic Acid Venous 0.59 mmol/L (0.90-1.70) Bedside Troponin I 0.060 ng/ml (0-0.045) Test 11/17/16 10:04 Bedside Glucose 125 mg/dl (70-90) Laboratory studies as stated above per my review. Medications Administered Medications (Trade) Dose Ordered Sig/Karlee Route Start Time Stop Time Status Last Admin Dose Admin Sodium Chloride 250 ml @ 999 mls/hr Q16M STAT IV 11/17/16 09:11 11/17/16 09:26 DC 11/17/16 09:36 999 MLS/HR Sodium Chloride 1,000 ml @ 100 mls/hr Q10H STAT IV 11/17/16 09:11 11/17/16 13:54 DC 11/17/16 10:00 100 MLS/HR Dextrose (Dextrose 50% 50ML Syringe) 50 ml STK-MED ONCE .ROUTE 11/17/16 09:31 11/17/16 09:32 DC 11/17/16 09:35 50 ML Ceftriaxone Sodium (Rocephin Inj) 1 gm NOW STAT IV 11/17/16 10:42 11/17/16 10:43 DC 11/17/16 10:55 1 GM ECG Indication: altered mental status Rate (beats per minute): 70 Rhythm: other (ventricular paced) Findings: no acute ischemic change, no ectopy Comparison ECG Date: 07/29/16 Change: no significant change ED Course 0905: Past medical records reviewed. The patient was evaluated in room B1, and a complete history and physical examination were performed. 0911: NSS 1000 ml @ 100 mls/hr IV, NSS 250 ml @ 999 mls/hr IV 0914: I reevaluated the patient at this time. 0916: I spoke with the patient's daughter on the phone. We discussed the patient 's case. She states that her mother is a DNR. She also notes that the patient is normally non-verbal and says 1-2 words at best. 0931: Dextrose 50 ml IV 1016: I reevaluated the patient and she appears comfortable. 1035: I spoke with Dr. Robledo. We discussed the patients case. [facility] 1042: Rocephin 1 gm IV 1057: I discussed the results and treatment plan with the patient's daughter. I answered all pertaining questions that she had. She expressed understanding and verbalized agreement. Medical Decision Differential diagnoses includes CVA, intracranial hemorrhage, infection, diabetic emergency, electrolyte or metabolic abnormality. This patient comes in as described above. She has a very complex medical history and had altered mental status with possible CVA type symptoms. She was placed in room B1. I saw her immediately upon arrival. Daniel sugar was in the 70s in the [facility] and I checked it here and it was in the 40s. An IV had been established prior to arrival and we established a second IV. She was given 1 amp of D50 IV and her blood sugar came up in the 100s. She seemed to be more awake with this. She has no focal neurologic deficits. We did a CAT scan of her head and there is no acute intracranial process. I do not think the patient likely had a stroke and certainly does not meet TPA criteria, she is on chronic anticoagulants and has vague symptoms. EKG does not suggest acute coronary syndrome or arrhythmia. She has no significant electrolyte or metabolic abnormality was with exception of hypoglycemia. Blood cultures and urine cultures were obtained. Her urinalysis does suggest a UTI. She has 4+ bacteria in light of this, she also was given IV Rocephin. The patient has had recent problems with CHF and also has a normal lactic acid and was initially hypertensive, in light of this I did not give her a significant fluid bolus. I have talked to her daughter on the phone who is her healthcare power of deputy attorney general I talked her twice she agrees with the plan. The patient will be admitted as discussed with the daughter she is a DO NOT RESUSCITATE. [facility] and will [facility] her for these measures. Medication Reconcilliation Current Medication List: was personally reviewed by me Blood Pressure Screening Patient's blood pressure: Normal blood pressure Consults Time Called: 1031 Consulting Physician: Dr. Robledo Returned Call: [phone] Robledo. We discussed the patients case. [facility] Impression Primary Impression: Altered mental status Additional Impressions: Hypoglycemia UTI (urinary tract infection) Sepsis Critical Care I have personally spent greater than 30 minutes of critical care time in the direct management of this patient. This includes bedside care, interpretation of diagnostic studies, and testing, discussion with consultants, patient, and family members, and other required patient management activities. This 30 minutes is in excess of all separately billable procedures. Scribe Attestation The scribe's documentation has been prepared under my direction and personally reviewed by me in its entirety. I confirm that the note above accurately reflects all work, treatment, procedures, and medical decision making performed by me. Departure Information Dispostion Being Evaluated By Hospitalist Nicolás Us M.D. (PCP) Problem Qualifiers Primary Impression: Altered mental status Altered mental status type: unspecified Qualified Codes: R41.82 - Altered mental status, unspecified Additional Impressions: UTI (urinary tract infection) Urinary tract infection type: site unspecified Hematuria presence: without hematuria Qualified Codes: N39.0 - Urinary tract infection, site not specified
[2016-11-17 09:57] LABS: ALKALINE PHOSPHATASE 118 U/L (45-117); ALT/SGPT 25 U/L (12-78); AST/SGOT 35 U/L (15-37); BLOOD UREA NITROGEN 26 mg/dl (7-18); BUN/CREATININE RATIO 18.8 (10-20); CALCIUM 8.9 mg/dl (8.5-10.1); CARBON DIOXIDE 27 mmol/L (21-32); CHLORIDE 107 mmol/L (98-107); CKMB/CK RATIO 1.5 (0-3.0); GLUCOSE 49 mg/dl (70-99); POTASSIUM 4.2 mmol/L (3.5-5.1); SODIUM 139 mmol/L (136-145)
--- NOTE | 2016-11-17 10:07 | DIAGNOSTIC IMAGING REPORT ---
CHEST ONE VIEW PORTABLE HISTORY: Atypical CHEST PAIN COMPARISON: Chest 07/25/2016. FINDINGS: The heart remains mildly enlarged. No pneumothorax. Left dual-chamber pacemaker. No definite pleural effusions. Bilateral perihilar interstitial and vascular thickening remains unchanged. This favors mild pulmonary vascular congestion. IMPRESSION: No change in the mild pulmonary basilar congestion without overt edema. Electronically signed by: Jhony Silva M.D. 11/17/2016 10:06 AM Dictated Date/Time: 11/17/2016 10:04 AM
[2016-11-17 10:24] LABS: INR 2.8 (0.9-1.1); PARTIAL THROMBOPLASTIN RATIO 1.4; PROTHROMBIN TIME (PATIENT) 31.3 SECONDS (9.0-12.0)
[2016-11-17 10:30] VITALS: O2SAT 98; BMI 30.4
[2016-11-17 10:30] LABS: URINE APPEARANCE CLEAR (CLEAR); URINE BILIRUBIN NEG (NEG); URINE COLOR YELLOW; URINE NITRITE POS (NEG); URINE PH 6.5 (4.5-7.5); URINE SPECIFIC GRAVITY 1.019 (1.000-1.030); UROBILINOGEN NEG (NEG)
--- NOTE | 2016-11-17 10:30 | DIAGNOSTIC IMAGING REPORT ---
HEAD CT NONCONTRAST CT DOSE: 537.48 mGy.cm HISTORY: Left-sided weakness. altered loc TECHNIQUE: Multiaxial CT images of the head were performed without the use of intravenous contrast. Automated exposure control was utilized for this study. A dose lowering technique was utilized adhering to the principles of ALARA. Comparison: None. Findings: The paranasal sinuses and mastoid air cells are clear. The calvarium and skull base are intact. There is no mass, hematoma, midline shift, acute infarct. White matter hypodensity is nonspecific but suggestive of microvascular ischemic change. The ventricles and sulci demonstrate mild age-related involutional changes. Old bilateral basal ganglia lacunar infarcts. Old left thalamic infarct. Impression: No acute intracranial abnormality. Atrophy and microvascular ischemic changes. Old basal ganglia and left thalamic lacunar infarcts. Electronically signed by: Jhony Silva M.D. 11/17/2016 10:28 AM Dictated Date/Time: 11/17/2016 10:24 AM
[2016-11-17 10:31] LABS: MANUAL MICROSCOPIC REQUIRED? NO; REVIEW REQ? NO
[2016-11-17] MEDS ORDERED: CEFTRIAXONE SOD INJ 1 GM ADDVIAL IV STA (10:42)
[2016-11-17] MEDS ORDERED: POLYETHYLENE (MIRALAX) 17 GM PACK PO PRN (11:30)
[2016-11-17] MEDS ORDERED: ONDANSETRON INJ 2 MG/ML 2 ML VIAL IV PRN (11:30)
--- NOTE | 2016-11-17 11:44 | History and Physical ---
History & Physical Date & Time of Service: Nov 17, 2016 at 11:05 Chief Complaint: L-sided weakness Primary Care Physician: Nicolás Hogue M.D. History of Present Illness Source: patient, family Patient is an 86 yo female who presented to ER from [facility] today for complaints that the patient was more drowsy than normal, and had low blood sugars (72) and thought there might be a left facial droop. From a prior stroke the patient does have a right facial droop and right sided weakness. Patient is mostly non-verbal at baseline and therefore she was unable to provide any history or answer ROS. The patients daughter/POA Etta Frank was contacted and she states that since the last hospitalization the patient has further deteriorated, that she can sometimes say 2-3 words but appears to have to force herself, she sometimes follows commands and sometimes does not, and she sometimes recognizes her family members but sometimes is not able to recognize them. Per her Daughter, the patient was at baseline until last Friday, and was able to feed herself using both upper extremities but was very "shaky", and the patient is wheelchair and bed bound and unable to transfer/stand. The daughter also noted the patient appeared swollen on Friday. 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 Social History Smoking Status: Unknown if Ever Smoked Housing status: halfway Occupational Status: retired Allergies Coded Allergies: Aspirin (Verified Allergy, Intermediate, unknown, 11/17/16) Codeine (Verified Allergy, Intermediate, unknown, 11/17/16) Red Dye (Verified Allergy, Intermediate, unknown, 11/17/16) Yellow Dye (Verified Allergy, Intermediate, unknown, 11/17/16) Adhesives (Verified Allergy, Unknown, TAPE, 11/17/16) Morphine (Unverified Allergy, Unknown, UNKNOWN, 11/17/16) Home Medications Scheduled Alum & Mag Hydrox-Simethicone (Rulox), 2 TBS PO QID Atorvastatin (Lipitor), 20 MG PO QPM Calcium Carbonate-Vitamin D (Oyster Shell Calcium/D), 1 TAB PO DAILY Carvedilol (Carvedilol), 25 MG PO Q12 Cholecalciferol (Vitamin D3), 1,000 INTER.UNIT PO QAM Clopidogrel (Plavix), 75 MG PO DAILY Dicyclomine Hcl (Dicyclomine Hcl), 10 MG PO TID Furosemide (Furosemide), 20 MG PO UD Insulin Aspart (Novolog), 6 UNITS SQ LUNCH Insulin Aspart (Novolog), 4 UNITS SQ BID Insulin Glargine (Lantus), 12 UNITS SQ HS Isosorbide Mononitrate (Isosorbide Mononitrate ER), 60 MG PO QAM Latanoprost (Xalatan 0.005% Oph Patti), 1 DROP OPB QPM Levothyroxine Sodium (Synthroid), 50 MCG PO QAM Lisinopril (Prinivil), 10 MG PO DAILY Nitroglycerin (Nitrostat), 0.4 MG UT PRN Potassium Chloride (Klor-Con M20), 20 MEQ PO QAM Warfarin Sod (Coumadin), 2 TAB PO DIRECTED Warfarin Sod (Coumadin), 2.5 MG PO UD Scheduled PRN Acetaminophen (Tylenol), 650 MG PO Q4 PRN for Pain Review of Systems Unable to obtain a ROS from the patient due to her mentation Physical Exam Vital Signs Date Time Temp Pulse Resp B/P (MAP) Pulse Ox O2 Delivery O2 Flow Rate FiO2 11/17/16 10:48 70 20 98 Nasal Cannula 2.0 11/17/16 10:12 70 20 105/77 97 Nasal Cannula 2.0 11/17/16 09:39 70 18 190/94 93 Nasal Cannula 3.0 11/17/16 09:09 35.6 70 16 168/118 97 Nasal Cannula 2.0 11/17/16 09:07 70 General Appearance: WD/WN, + mild distress (patient groaning) Head: normocephalic, atraumatic Eyes: PERRL, EOMI, sclerae normal ENT: hearing grossly normal Neck: supple, no JVD, no carotid bruits, trachea midline Respiratory/Chest: chest non-tender, no respiratory distress, no accessory muscle use, + pertinent finding (coarse breath sounds and occasional cough noted ) Cardiovascular: regular rate, rhythm, no gallop, no JVD, normal peripheral pulses Abdomen/GI: normal bowel sounds, non tender, soft, no organomegaly Extremities/Musculoskelatal: normal capillary refill, non-tender, + pedal edema , + pertinent finding (mild contracture of all 4 extremities ) Neurologic/Psych: alert, + facial droop (right side), + motor weakness, + babinski, + pertinent finding (non verbal, not fully compliant with Neuro exam) Skin: normal color, warm/dry, no rash Diagnostics Laboratory Results Results Past 24 Hours Test 11/17/16 09:00 11/17/16 09:11 11/17/16 09:21 11/17/16 09:23 Range/Units Urine Color YELLOW Urine Appearance CLEAR CLEAR Urine pH 6.5 4.5-7.5 Urine Specific [place] 1.019 1.000-1.030 Urine Protein NEG NEG Urine Glucose (UA) NEG NEG Urine Ketones NEG NEG Urine Occult Blood NEG NEG Urine Nitrite POS NEG Urine Bilirubin NEG NEG Urine Urobilinogen NEG NEG Urine Leukocyte Esterase SMALL NEG Urine WBC (Auto) 1-5 0-5 /hpf Urine RBC (Auto) 0-4 0-4 /hpf Urine Hyaline Casts (Auto) 0 0-5 /lpf Urine Epithelial Cells (Auto) 5-10 0-5 /lpf Urine Bacteria (Auto) 4+ NEG Creatine Kinase MB Ratio 1.5 0-3.0 White Blood Count 7.45 4.8-10.8 K/uL Red Blood Count 4.18 4.2-5.4 M/uL Hemoglobin 12.6 12.0-16.0 g/dL Hematocrit 38.8 37-47 % Mean Corpuscular Volume 92.8 80-100 fL Mean Corpuscular Hemoglobin 30.1 25-34 pg Mean Corpuscular Hemoglobin Concent 32.5 32-36 g/dl Platelet Count 182 130-400 K/uL Mean Platelet Volume 9.7 7.4-10.4 fL Neutrophils (%) (Auto) 77.6 % Lymphocytes (%) (Auto) 9.0 % Monocytes (%) (Auto) 11.4 % Eosinophils (%) (Auto) 1.3 % Basophils (%) (Auto) 0.4 % Neutrophils # (Auto) 5.78 1.4-6.5 K/uL Lymphocytes # (Auto) 0.67 1.2-3.4 K/uL Monocytes # (Auto) 0.85 0.11-0.59 K/uL Eosinophils # (Auto) 0.10 0-0.5 K/uL Basophils # (Auto) 0.03 0-0.2 K/uL RDW Standard Deviation 48.4 36.4-46.3 fL RDW Coefficient of Variation 14.3 11.5-14.5 % Immature Granulocyte % (Auto) 0.3 % Immature Granulocyte # (Auto) 0.02 0.00-0.02 K/uL Prothrombin Time 31.3 9.0-12.0 SECONDS Prothromb Time International Ratio 2.8 0.9-1.1 Activated Partial Thromboplast Time 36.6 21.0-31.0 SECONDS Partial Thromboplastin Ratio 1.4 Sodium Level 139 136-145 mmol/L Potassium Level 4.2 3.5-5.1 mmol/L Chloride Level 107 98-107 mmol/L Carbon Dioxide Level 27 21-32 mmol/L Anion Gap 5.0 3-11 mmol/L Blood Urea Nitrogen 26 7-18 mg/dl Creatinine 1.40 0.60-1.20 mg/dl Estimated GFR () 38.8 Estimated GFR (Non- 33.5 BUN/Creatinine Ratio 18.8 10-20 Random Glucose 49 70-99 mg/dl Calcium Level 8.9 8.5-10.1 mg/dl Total Bilirubin 0.9 0.2-1 mg/dl Direct Bilirubin 0.4 0-0.2 mg/dl Aspartate Amino Transf (AST/SGOT) 35 15-37 U/L Alanine Aminotransferase (ALT/SGPT) 25 12-78 U/L Alkaline Phosphatase 118 45-117 U/L Total Creatine Kinase 168 26-192 U/L Creatine Kinase MB 2.6 0.5-3.6 ng/ml Total Protein 6.7 6.4-8.2 gm/dl Albumin 2.7 3.4-5.0 gm/dl Lipase 104 73-393 U/L Bedside Lactic Acid Venous 0.59 0.90-1.70 mmol/L Test 11/17/16 09:28 11/17/16 09:29 11/17/16 10:04 Range/Units Bedside Glucose 46 41 125 70-90 mg/dl Bedside Troponin I 0.060 0-0.045 ng/ml Microbiology Results 11/17/16 Blood Culture, Received Pending 11/17/16 Blood Culture, Received Pending 11/17/16 Urine Culture, Received Pending Impression Assessment and Plan ALTERED MENTAL STATUS: -likely multifactorial from UTI, and hypoglycemia -discussed with the patients daughter that no real benefit of a stroke workup as the patient is on statin/plavix/anticoagulation and management would not change and she is in agreement for holding off on those studies -Speech eval and dysphagia screen -monitor BSG q 2 hours, will hold all insulin for now, once BSG stabilize will resume dose adjusted insulin -treat UTI and await cultures -Neuro checks for any acute changes UTI: -previous admission culture grew Proteus that was resistant to Cipro, Levaquin, Bactrim -will treat with ceftriaxone -await urine culture for further abx guidance DM TYPE II: -last HbA1c: 8.4%; repeat in AM -holding all insulin until BSG becomes consistently elevated then will resume half her home doses of lispor and lantus MILD TROPONIN ELEVATION: -obtain serial CM to trend -likely from CKD, Demand Ischemia -repeat EKG in AM PAROXYSMAL ATRIAL FIBRILLATION: -continue on Carvedilol, Coumadin -rate controlled -INR: 2.8 PREVIOUS CVA: -no suggestion of acute CVA on CT head, only shows old basal ganglia and left thalamic lacunar infarcts -per discussion with daughter the patient has been deteriorating since her last admission and more pronounced in the past week -even if new CVA, 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 Severe hypokinesis to akinesis of the base and mid inferior wall; Diastolic dysfunction, Grade III (restrictive pattern), consistent with markedly increased left atrial pressure. LVEF intact. Mild , moderate MR, mild -mod TR, elevated RVSP HYPOTHYROIDISM: -continue levothyroxine DEMENTIA: likely vascular but records indicate Alzheimer as well -appears at baseline Resuscitation Status DO NOT RESUSCITATE VTE Prophylaxis Risk Level: Low Given or contraindicated: Warfarin (Coumadin)
[2016-11-17] MEDS ORDERED: PHARMACIST DISCHARGE MED REC CONSULT PRN (11:45)
[2016-11-17] MEDS ORDERED: DEXTROSE 50% 50 ML SYR IV PRN (11:45)
[2016-11-17] MEDS ORDERED: GLUCAGON FOR INJ 1 MG VIAL SQ PRN (11:45)
[2016-11-17] MEDS ORDERED: NITROGLYCERIN 0.4 MG SL PER TAB CHARGE UT SCH (11:45)
[2016-11-17] MEDS ORDERED: GLUCOSE 40% GEL 15 GM TUBE PO PRN (11:45)
[2016-11-17] MEDS ORDERED: GLUCOSE 10 TABS/TUBE PO PRN (11:45)
[2016-11-17] MEDS ORDERED: PNEUMOCOCCAL POLYSACCHARIDES 25 MCG/0.5 ML VIAL/SYR IM. ONE (12:15)
[2016-11-17] MEDS ORDERED: PNEUMOCOCCAL ADMINISTRATION CHARGE ONE (12:15)
[2016-11-17] MEDS ORDERED: ALUMINUM/MAGNESIUM/SIMETH (MAALOX MAX) 30 ML UDC PO PRN (13:00)
[2016-11-17 14:00] VITALS: BP 144/78; PULSE 70; TEMP 37; O2SAT 96
[2016-11-17] MEDS ORDERED: DICYCLOMINE HCL 10 MG CAP PO PRN (14:00)
[2016-11-17] MEDS ORDERED: DICYCLOMINE HCL 10 MG CAP PO SCH (14:00)
[2016-11-17 15:36] VITALS: BP_SYST 152; BP_SYST 83; BP_DIAS 53; BP_DIAS 88; PULSE 71; TEMP 36.5; O2SAT 98
[2016-11-17 20:21] VITALS: BP 176/84; PULSE 71; TEMP 36.9; O2SAT 100
[2016-11-17] MEDS: ATORVASTATIN 20 MG TAB PO SCH (21:51)
[2016-11-17] MEDS: CARVEDILOL 25 MG TAB PO SCH (21:51)
[2016-11-17] MEDS: LATANOPROST 0.005% OP SOLN 2.5 ML BTL OPB SCH (21:51)
[2016-11-17 23:58] VITALS: BP 138/78; PULSE 70; TEMP 36.6; O2SAT 92
[2016-11-18] VITALS (8 sets, daily range): BP systolic 99–177; BP diastolic 36–90; PULSE 70–79; TEMP 36.4–36.9; O2SAT 92–100
[2016-11-18 02:35] LABS: CKMB/CK RATIO 1.6 (0-3.0)
[2016-11-18] MEDS: LEVOTHYROXINE 50 MCG TAB PO SCH (06:43)
[2016-11-18 07:03] LABS: BASO % 0.2 %; BASO ABS # 0.01 K/uL (0-0.2); COMPLETE YES; EOS % 0.2 %; HEMATOCRIT 39.1 % (37-47); IG% 0.2 %; LYMPH % 13.1 %; LYMPH ABS # 0.73 K/uL (1.2-3.4); MEAN CELL VOLUME 91.8 fL (80-100); MEAN CORPUSCULAR HEMOGLOBIN 29.6 pg (25-34); MEAN CORPUSCULAR HGB CONC 32.2 g/dl (32-36); MEAN PLATELET VOLUME 10.2 fL (7.4-10.4); MONO % 12.1 %; NEUT % 74.2 %; PLATELET COUNT 185 K/uL (130-400); RED BLOOD COUNT 4.26 M/uL (4.2-5.4); WHITE BLOOD COUNT 5.56 K/uL (4.8-10.8)
[2016-11-18 07:18] LABS: PROTHROMBIN TIME (PATIENT) 52.9 SECONDS (9.0-12.0)
[2016-11-18 07:23] LABS: INR 4.6 (0.9-1.1)
[2016-11-18] MEDS: ACETAMINOPHEN 325 MG TAB PO PRN ×2 (07:32→20:43)
[2016-11-18] MEDS: FUROSEMIDE 20 MG TAB PO SCH (07:32)
[2016-11-18] MEDS: ISOSORBIDE MONONITRATE 60 MG TABCR PO SCH (07:33)
[2016-11-18] MEDS: CALCIUM 600MG + VIT D 400 IU TAB PO SCH (07:33)
[2016-11-18] MEDS: CLOPIDOGREL BISULFATE 75 MG TAB PO SCH (07:34)
[2016-11-18] MEDS: CHOLECALCIFEROL 1000 INTER.UNIT TAB PO SCH (07:34)
[2016-11-18] MEDS: CARVEDILOL 25 MG TAB PO SCH ×2 (07:34→20:44)
[2016-11-18] MEDS: LISINOPRIL 10 MG TAB PO SCH (07:35)
[2016-11-18] MEDS: POTASSIUM CHLORIDE 20 MEQ TABCR PO SCH (07:35)
[2016-11-18 07:50] LABS: CREATININE 1.3 mg/dl (0.60-1.20)
[2016-11-18 07:51] LABS: BUN/CREATININE RATIO 25.1 (10-20); CALCIUM 8.9 mg/dl (8.5-10.1); POTASSIUM 4.4 mmol/L (3.5-5.1)
--- NOTE | 2016-11-18 10:09 | Clinical Documentation Query ---
ADIN Garcia : CLINICAL DOCUMENTATION QUERIES QUERY 1 OF 2 Patient is an 86 year old female admitted for evaluation and treatment of (an) "altered mental status" in the setting of a UTI and hypoglycemia. As appropriate, consider documentation as suggested below in order to capture the severity of illness and risk of mortality associated with this important clinical diagnosis. In your clinical opinion is this patient being managed for: ( ) Metabolic encephalopathy secondary to UTI and hypoglycemia ( ) Other explanation of clinical findings (Please Explain) ( ) Unable to determine (Please Define) ( ) Need to Discuss ( ) Not Agree The medical record reflects the following clinical findings, treatment, and risk factors. Clinical Indicators: AMS in the setting of UTI and hypoglycemia Treatment: IV Dexrose, CT scan of the head, IVF, IV antibiotics, urine culture Risk Factors: UTI and hypoglycemia QUERY 2 OF 2 H&P notes a history of CHF, not otherwise specified. Echocardiogram from 07/26/16 read to include normal biventricular systolic function and grade II diastolic dysfunction. In your clinical opinion is this patient being managed for: ( ) Chronic diastolic (congestive) heart failure ( ) Other explanation of clinical findings (Please Explain) ( ) Unable to determine (Please Define) ( ) Need to Discuss ( ) Not Agree The medical record reflects the following clinical findings, treatment, and risk factors. Clinical Indicators: As above Treatment: Admission to telemetry, serial chemistries, I/O, DAHA diet, Lasix, lisinopril, Coreg Risk Factors: Age, hypertension Please clarify and document your clinical opinion in the progress notes and discharge summary. Terms such as "probable", "suspected", "likely", "questionable", "possible", or "still to be ruled out" are acceptable. IF IN AGREEMENT, YOU MUST DOCUMENT ABOVE DIAGNOSTIC STATEMENT IN DAILY PROGRESS NOTES AND DISCHARGE SUMMARY. This document is not part of the patient's record. Thank You, Yuri Rosales, RN [phone]
[2016-11-18] MEDS: D5W AND NSS 1,000 ML IV SCH (11:38)
[2016-11-18] MEDS: CEFTRIAXONE SOD INJ 1 GM in DEXTROSE 5% ADD-VANTAGE 50ML 50 ML IV SCH (11:38)
[2016-11-18] MEDS ORDERED: WARFARIN SOD 5 MG TAB PO SCH (16:00)
--- NOTE | 2016-11-18 17:58 | Progress Note ---
Internal Med Progress Note Date of Service: Nov 18, 2016. Provider Documentation: SUBJECTIVE: patient mostly non verbal form previous strokes and dementia but says she is fine denies any pain afebrile seems comfortable OBJECTIVE: Vital Signs-as noted below Exam: General-alert and awake. Not in distress ENT-Normal hearing Neck-no neck masses supple Lungs-cta b/l no wheezing no crackles present Heart-s1 and s2 heard regular rate and rhythm no murmurs Abdomen-soft bowel sounds present non tender no distension Extremities- no erythema Neuro-alert and awake moves extremities Lab data as noted below. ASSESSMENT & PLAN: ALTERED MENTAL STATUS: Metabolic encephalopathy most likely from UTI, and hypoglycemia urine growing gm negative bacilli improving UTI: on Rocephin cx gm negative bacilli await final cx Hypoglycemia on d5ns@ 75ml/hr seen by speech and recommends: Pureed diet, NECTAR thick liquids. Will monitor DM TYPE II: last HbA1c: 8.4%; repeat in AM placed on iss if elevated will stop dextrose and resume Lantus MILD TROPONIN ELEVATION: likely from CKD, Demand Ischemia will monitor PAROXYSMAL ATRIAL FIBRILLATION: on Carvedilol, Coumadin rate controlled INR 4.6. Hold Coumadin PREVIOUS CVA: Ct head no acute findings continue home meds. Coumadin on hold CHRONIC DIASTOLIC CHF: on gentle fluids will monitor for volume overload.SP HYPOTHYROIDISM: on levothyroxine DEMENTIA: likely vascular but records indicate Alzheimer as well at baseline DVT PROPHYLAXIS inr 4.6 DISPOSITION monitor in tele to be determined social service for d/c planning Vital Signs: Date Time Temp Pulse Resp B/P (MAP) Pulse Ox O2 Delivery O2 Flow Rate FiO2 11/18/16 15:21 36.8 70 132/70 (90) 100 Nasal Cannula 2.0 11/18/16 12:00 Nasal Cannula 2.0 11/18/16 11:35 36.6 79 18 142/80 (100) 95 2.0 11/18/16 08:00 Nasal Cannula 2.0 11/18/16 07:50 36.4 70 22 177/90 (119) 96 4.0 11/18/16 04:41 36.9 70 18 99/36 (57) 96 Nasal Cannula 11/18/16 04:00 Nasal Cannula 2.0 11/17/16 23:59 Nasal Cannula 2.0 11/17/16 23:58 36.6 70 20 138/78 (98) 92 Nasal Cannula 11/17/16 20:21 36.9 71 26 176/84 (114) 100 Nasal Cannula 3.5 11/17/16 20:00 Nasal Cannula 2.0 Lab Results: Results Past 24 Hours Test 11/18/16 01:53 11/18/16 06:18 11/18/16 07:54 11/18/16 08:26 Range/Units Total Creatine Kinase 186 26-192 U/L Creatine Kinase MB 3.0 0.5-3.6 ng/ml Creatine Kinase MB Ratio 1.6 0-3.0 Troponin I 0.133 0-0.045 ng/ml White Blood Count 5.56 4.8-10.8 K/uL Red Blood Count 4.26 4.2-5.4 M/uL Hemoglobin 12.6 12.0-16.0 g/dL Hematocrit 39.1 37-47 % Mean Corpuscular Volume 91.8 80-100 fL Mean Corpuscular Hemoglobin 29.6 25-34 pg Mean Corpuscular Hemoglobin Concent 32.2 32-36 g/dl Platelet Count 185 130-400 K/uL Mean Platelet Volume 10.2 7.4-10.4 fL Neutrophils (%) (Auto) 74.2 % Lymphocytes (%) (Auto) 13.1 % Monocytes (%) (Auto) 12.1 % Eosinophils (%) (Auto) 0.2 % Basophils (%) (Auto) 0.2 % Neutrophils # (Auto) 4.13 1.4-6.5 K/uL Lymphocytes # (Auto) 0.73 1.2-3.4 K/uL Monocytes # (Auto) 0.67 0.11-0.59 K/uL Eosinophils # (Auto) 0.01 0-0.5 K/uL Basophils # (Auto) 0.01 0-0.2 K/uL RDW Standard Deviation 47.3 36.4-46.3 fL RDW Coefficient of Variation 14.2 11.5-14.5 % Immature Granulocyte % (Auto) 0.2 % Immature Granulocyte # (Auto) 0.01 0.00-0.02 K/uL Prothrombin Time 52.9 9.0-12.0 SECONDS Prothromb Time International Ratio 4.6 0.9-1.1 Sodium Level 140 136-145 mmol/L Potassium Level 4.4 3.5-5.1 mmol/L Chloride Level 108 98-107 mmol/L Carbon Dioxide Level 22 21-32 mmol/L Anion Gap 10.0 3-11 mmol/L Blood Urea Nitrogen 33 7-18 mg/dl Creatinine 1.30 0.60-1.20 mg/dl Est Creatinine Clear Calc Drug Dose 26.3 ml/min Estimated GFR () 42.4 Estimated GFR (Non- 36.6 BUN/Creatinine Ratio 25.1 10-20 Random Glucose 47 70-99 mg/dl Calcium Level 8.9 8.5-10.1 mg/dl Chemistry Specimen Hemolysis Bedside Glucose 67 83 70-90 mg/dl Test 11/18/16 16:21 Range/Units Bedside Glucose 268 70-90 mg/dl
[2016-11-18] MEDS: LATANOPROST 0.005% OP SOLN 2.5 ML BTL OPB SCH (20:43)
[2016-11-18] MEDS: ATORVASTATIN 20 MG TAB PO SCH (20:45)
[2016-11-18] MEDS: INSULIN ASPART 100 UNITS/ML 3 ML PEN SC SCH (21:43)
[2016-11-19] VITALS (8 sets, daily range): BP systolic 114–206; BP diastolic 54–100; PULSE 69–70; TEMP 36.3–36.7; O2SAT 94–99; Ht 154.9 cm; Wt 69.9 kg
[2016-11-19] MEDS: D5W AND NSS 1,000 ML IV SCH (02:27)
[2016-11-19] MEDS: ACETAMINOPHEN 325 MG TAB PO PRN ×3 (02:28→21:29)
[2016-11-19] MEDS: LEVOTHYROXINE 50 MCG TAB PO SCH (05:40)
[2016-11-19] MEDS: INSULIN ASPART 100 UNITS/ML 3 ML PEN SC SCH ×4 (07:00→21:32)
[2016-11-19 07:16] LABS: BASO % 0.2 %; BASO ABS # 0.01 K/uL (0-0.2); COMPLETE YES; EOS % 1.6 %; HEMATOCRIT 37.1 % (37-47); IG% 0.4 %; LYMPH % 11.8 %; LYMPH ABS # 0.65 K/uL (1.2-3.4); MEAN CELL VOLUME 92.3 fL (80-100); MEAN CORPUSCULAR HEMOGLOBIN 29.4 pg (25-34); MEAN CORPUSCULAR HGB CONC 31.8 g/dl (32-36); MEAN PLATELET VOLUME 9.9 fL (7.4-10.4); MONO % 14.9 %; NEUT % 71.1 %; PLATELET COUNT 193 K/uL (130-400); RED BLOOD COUNT 4.02 M/uL (4.2-5.4); WHITE BLOOD COUNT 5.49 K/uL (4.8-10.8)
[2016-11-19 07:29] LABS: PROTHROMBIN TIME (PATIENT) 63.6 SECONDS (9.0-12.0)
[2016-11-19 07:31] LABS: INR 5.5 (0.9-1.1)
[2016-11-19 07:42] LABS: BUN/CREATININE RATIO 25.9 (10-20); CALCIUM 8.4 mg/dl (8.5-10.1); CREATININE 1.5 mg/dl (0.60-1.20); POTASSIUM 3.9 mmol/L (3.5-5.1)
[2016-11-19] MEDS: CHOLECALCIFEROL 1000 INTER.UNIT TAB PO SCH (07:53)
[2016-11-19] MEDS: LISINOPRIL 10 MG TAB PO SCH (07:53)
[2016-11-19] MEDS: ISOSORBIDE MONONITRATE 60 MG TABCR PO SCH (07:53)
[2016-11-19] MEDS: CALCIUM 600MG + VIT D 400 IU TAB PO SCH (07:53)
[2016-11-19] MEDS: POTASSIUM CHLORIDE 20 MEQ TABCR PO SCH (07:53)
[2016-11-19] MEDS: CARVEDILOL 25 MG TAB PO SCH ×2 (07:53→21:29)
[2016-11-19 08:33] LABS: ESTIMATED AVERAGE GLUCOSE 189 mg/dl; HA1C FLAG Normal (Normal)
[2016-11-19] MEDS: CLOPIDOGREL BISULFATE 75 MG TAB PO SCH (10:19)
[2016-11-19] MEDS: CEFTRIAXONE SOD INJ 1 GM in DEXTROSE 5% ADD-VANTAGE 50ML 50 ML IV SCH (10:19)
[2016-11-19] MEDS ORDERED: SODIUM CHLORIDE 0.9% 1000ML 1,000 ML IV SCH (11:30)
[2016-11-19] MEDS ORDERED: HydrALAZINE HCL 20 MG/ML VIAL IV. ONE (11:30)
[2016-11-19] MEDS ORDERED: HydrALAZINE HCL 20 MG/ML VIAL IV. PRN (11:30)
[2016-11-19] MEDS ORDERED: WARFARIN SOD 2.5 MG TAB PO SCH (16:00)
--- NOTE | 2016-11-19 17:05 | DIAGNOSTIC IMAGING REPORT ---
LEFT VENOUS DOPPLER UPR EXT UNIL HISTORY: 86 years-old Female left upper extremity DVT? COMPARISON: None available TECHNIQUE: Multiple real-time sonographic images of the left upper extremity venous structures were obtained assessing grayscale appearance, color and spectral flow. FINDINGS: No DVT identified within the left upper extremity. There is however a moderate amount of edema noted throughout the soft tissues without drainable fluid collection. Study is limited secondary to patient body habitus. IMPRESSION: 1. No evidence of deep venous thrombosis within the left upper extremity. 2. Moderate amount of nonspecific soft tissue edema without drainable fluid collection. The above report was generated using voice recognition software. It may contain grammatical, syntax or spelling errors. Electronically signed by: Pritesh Doan M.D. 11/19/2016 5:03 PM Dictated Date/Time: 11/19/2016 5:01 PM
--- NOTE | 2016-11-19 17:10 | DIAGNOSTIC IMAGING REPORT ---
LEFT EXTREMITY NONVASCULAR LIMITED HISTORY: 86 years-old Female swollen left upper extrmity. inr up. hematoma? COMPARISON: Duplex venous ultrasound of the left upper extremity of same day TECHNIQUE: Multiple real-time sonographic images of the left upper extremity soft tissues were obtained assessing grayscale appearance and color flow. FINDINGS/IMPRESSION: There is a moderate amount of nonspecific edema seen within the left upper extremity without drainable fluid collection or large hematoma identified. The above report was generated using voice recognition software. It may contain grammatical, syntax or spelling errors. Electronically signed by: Pritesh Doan M.D. 11/19/2016 5:09 PM Dictated Date/Time: 11/19/2016 5:07 PM
--- NOTE | 2016-11-19 19:02 | Progress Note ---
Internal Med Progress Note Date of Service: Nov 19, 2016. Provider Documentation: SUBJECTIVE: patient mostly non verbal form previous strokes and dementia can tell her name seems comfortable afebrile OBJECTIVE: Vital Signs-as noted below Exam: General-alert and awake. Not in distress ENT-Normal hearing Neck-no neck masses supple Lungs-cta b/l no wheezing no crackles present Heart-s1 and s2 heard regular rate and rhythm no murmurs Abdomen-soft bowel sounds present non tender no distension Extremities- left upper extremity swollen Neuro-alert and awake moves extremities Lab data as noted below. ASSESSMENT & PLAN: ALTERED MENTAL STATUS: Metabolic encephalopathy most likely from UTI, and hypoglycemia urine growing gm negative bacilli improving UTI: on Rocephin cx e.coli nand klebsiella-bates sensitive Hypoglycemia on d5ns@ 75ml/hr seen by speech and recommends: Pureed diet, NECTAR thick liquids. stopped dextrose DM TYPE II: last HbA1c: 8.4%; repeat in AM placed on iss will monitor Left upper extremity swelling ultrasound no dvt or hematoma will f/u ct scan MILD TROPONIN ELEVATION: likely from CKD, Demand Ischemia will monitor PAROXYSMAL ATRIAL FIBRILLATION: on Carvedilol, Coumadin rate controlled INR 5.5. Hold Coumadin PREVIOUS CVA: Ct head no acute findings continue home meds. Coumadin on hold CHRONIC DIASTOLIC CHF: on gentle fluids will monitor for volume overload.SP HYPOTHYROIDISM: on levothyroxine DEMENTIA: likely vascular but records indicate Alzheimer as well at baseline DVT PROPHYLAXIS inr 5.5 DISPOSITION monitor in tele to be determined social service for d/c planning Vital Signs: Date Time Temp Pulse Resp B/P (MAP) Pulse Ox O2 Delivery O2 Flow Rate FiO2 11/19/16 15:20 69 23 152/89 (110) 97 Nasal Cannula 2.0 11/19/16 12:03 Nasal Cannula 2.0 11/19/16 11:02 36.5 70 20 163/100 (121) 97 2.0 11/19/16 08:02 Nasal Cannula 2.0 11/19/16 07:38 36.6 70 18 206/80 (122) 99 2.0 11/19/16 04:29 36.7 69 18 125/89 (101) 94 2.0 11/19/16 04:00 Nasal Cannula 2.0 11/19/16 00:00 Nasal Cannula 2.0 11/18/16 23:50 36.4 70 20 137/69 (91) 92 2.0 11/18/16 20:00 93 Nasal Cannula 2.0 11/18/16 19:06 36.5 73 19 148/64 (92) 93 Nasal Cannula 2.0 Lab Results: Results Past 24 Hours Test 11/18/16 20:44 11/19/16 06:17 11/19/16 06:44 11/19/16 11:17 Range/Units Bedside Glucose 283 232 247 70-90 mg/dl White Blood Count 5.49 4.8-10.8 K/uL Red Blood Count 4.02 4.2-5.4 M/uL Hemoglobin 11.8 12.0-16.0 g/dL Hematocrit 37.1 37-47 % Mean Corpuscular Volume 92.3 80-100 fL Mean Corpuscular Hemoglobin 29.4 25-34 pg Mean Corpuscular Hemoglobin Concent 31.8 32-36 g/dl Platelet Count 193 130-400 K/uL Mean Platelet Volume 9.9 7.4-10.4 fL Neutrophils (%) (Auto) 71.1 % Lymphocytes (%) (Auto) 11.8 % Monocytes (%) (Auto) 14.9 % Eosinophils (%) (Auto) 1.6 % Basophils (%) (Auto) 0.2 % Neutrophils # (Auto) 3.90 1.4-6.5 K/uL Lymphocytes # (Auto) 0.65 1.2-3.4 K/uL Monocytes # (Auto) 0.82 0.11-0.59 K/uL Eosinophils # (Auto) 0.09 0-0.5 K/uL Basophils # (Auto) 0.01 0-0.2 K/uL RDW Standard Deviation 48.3 36.4-46.3 fL RDW Coefficient of Variation 14.5 11.5-14.5 % Immature Granulocyte % (Auto) 0.4 % Immature Granulocyte # (Auto) 0.02 0.00-0.02 K/uL Prothrombin Time 63.6 9.0-12.0 SECONDS Prothromb Time International Ratio 5.5 0.9-1.1 Sodium Level 139 136-145 mmol/L Potassium Level 3.9 3.5-5.1 mmol/L Chloride Level 109 98-107 mmol/L Carbon Dioxide Level 22 21-32 mmol/L Anion Gap 8.0 3-11 mmol/L Blood Urea Nitrogen 39 7-18 mg/dl Creatinine 1.50 0.60-1.20 mg/dl Est Creatinine Clear Calc Drug Dose 23.2 ml/min Estimated GFR () 35.7 Estimated GFR (Non- 30.8 BUN/Creatinine Ratio 25.9 10-20 Random Glucose 251 70-99 mg/dl Estimated Average Glucose 189 mg/dl Hemoglobin A1c 8.2 4.5-5.6 % Calcium Level 8.4 8.5-10.1 mg/dl Troponin I 0.164 0-0.045 ng/ml Test 11/19/16 16:52 Range/Units Bedside Glucose 251 70-90 mg/dl
[2016-11-19] MEDS: LATANOPROST 0.005% OP SOLN 2.5 ML BTL OPB SCH (21:30)
[2016-11-19] MEDS: ATORVASTATIN 20 MG TAB PO SCH (21:30)
--- NOTE | 2016-11-19 21:30 | DIAGNOSTIC IMAGING REPORT ---
LEFT UPPER EXTREMITY WITHOUT HISTORY: 86 years-old Female acute swelling of the left upper extremity COMPARISON: Ultrasound of the left upper extremity of same day TECHNIQUE: Multiple axial CT images of the left upper extremity were obtained without the use of IV contrast. Coronal and sagittal reformatted images were obtained from the axial data set and submitted for review. A dose lowering technique was used consistent with the principals of LEIDA. FINDINGS: There is a prominent amount of streak artifact the left pectoral pacer battery pack which limits the exam. The cardiac silhouette appears enlarged with coronary arterial and aortic annulus calcifications present. There is subsegmental linear alveolar opacity of the inferior segment lingula and into the pleural surface suggesting atelectasis or scarring. There are likely vascular calcifications involving the left kidney. There is a mild amount of subcutaneous inflammatory stranding and skin thickening involving the left upper breast, axilla and left upper arm extending to the region of the elbow. No drainable collections are identified. No focal phlegmon is seen. There are vascular calcifications noted throughout the left breast. No pathologic-appearing axillary adenopathy. Atherosclerotic plaquing of the brachial and axillary arteries are noted. There is additional atherosclerotic plaquing of the left carotid vasculature. At least moderate degenerative changes of left glenohumeral joint. There are bodies within the superior glenohumeral joint measuring up to 4 mm. Severe degenerative changes involve the left AC joint. There is degenerative spurring about the elbow. No acute fracture. IMPRESSION: 1. Mild amount of subcutaneous inflammatory stranding and skin thickening involves the left upper breast, axillary region and left upper extremity extending to the region of the elbow. No focal phlegmon or drainable collection is identified at this time. 2. Peripheral vascular disease. 3. No acute fracture. 4. Additional incidental findings as above. The above report was generated using voice recognition software. It may contain grammatical, syntax or spelling errors. Electronically signed by: Pritesh Doan M.D. 11/19/2016 9:29 PM Dictated Date/Time: 11/19/2016 9:22 PM
[2016-11-19] MEDS ORDERED: NURSING VERBAL MED ORDER ONE (22:30)
[2016-11-20 03:40] VITALS: BP 94/57; PULSE 70; TEMP 36.7; O2SAT 99
[2016-11-20] MEDS: LEVOTHYROXINE 50 MCG TAB PO SCH (05:35)
[2016-11-20 07:31] VITALS: BP 161/76; PULSE 72; TEMP 36.9; O2SAT 99
[2016-11-20 08:32] LABS: BASO % 0.2 %; BASO ABS # 0.01 K/uL (0-0.2); COMPLETE YES; EOS % 2.3 %; HEMATOCRIT 38.8 % (37-47); IG% 0.2 %; LYMPH % 12.6 %; LYMPH ABS # 0.67 K/uL (1.2-3.4); MEAN CELL VOLUME 93.9 fL (80-100); MEAN CORPUSCULAR HEMOGLOBIN 29.8 pg (25-34); MEAN CORPUSCULAR HGB CONC 31.7 g/dl (32-36); MEAN PLATELET VOLUME 9.6 fL (7.4-10.4); MONO % 16.1 %; NEUT % 68.6 %; PLATELET COUNT 174 K/uL (130-400); RED BLOOD COUNT 4.13 M/uL (4.2-5.4); WHITE BLOOD COUNT 5.33 K/uL (4.8-10.8)
[2016-11-20 08:39] LABS: INR 3.2 (0.9-1.1); PROTHROMBIN TIME (PATIENT) 36.1 SECONDS (9.0-12.0)
[2016-11-20 08:58] LABS: BUN/CREATININE RATIO 28.7 (10-20); CALCIUM 8.8 mg/dl (8.5-10.1); CREATININE 1.3 mg/dl (0.60-1.20); POTASSIUM 4.1 mmol/L (3.5-5.1)
[2016-11-20] MEDS: POTASSIUM CHLORIDE 20 MEQ TABCR PO SCH (09:00)
[2016-11-20] MEDS: ISOSORBIDE MONONITRATE 60 MG TABCR PO SCH (09:52)
[2016-11-20] MEDS: CLOPIDOGREL BISULFATE 75 MG TAB PO SCH (09:52)
[2016-11-20] MEDS: CARVEDILOL 25 MG TAB PO SCH (09:52)
[2016-11-20] MEDS: CALCIUM 600MG + VIT D 400 IU TAB PO SCH (09:52)
[2016-11-20] MEDS: LISINOPRIL 10 MG TAB PO SCH (09:52)
[2016-11-20] MEDS: CHOLECALCIFEROL 1000 INTER.UNIT TAB PO SCH (09:52)
[2016-11-20] MEDS: FUROSEMIDE 20 MG TAB PO SCH (09:53)
[2016-11-20] MEDS: CEFTRIAXONE SOD INJ 1 GM in DEXTROSE 5% ADD-VANTAGE 50ML 50 ML IV SCH (09:55)
[2016-11-20] MEDS: INSULIN ASPART 100 UNITS/ML 3 ML PEN SC SCH ×2 (09:57→12:26)
[2016-11-20 11:10] VITALS: BP 140/102; PULSE 71; TEMP 36.5; O2SAT 98
[2016-11-20] MEDS ORDERED: LCTX PO (11:52)
[2016-11-20] MEDS ORDERED: CEFU250T15 PO (11:52)
--- NOTE | 2016-11-20 11:57 | Discharge Instructions ---
Discharge Instructions Date of Service Nov 20, 2016. Admission Reason for Admission: Altered Mental Status,Hypoglycemia,Uti Discharge Discharge Diagnosis / Problem: AMS, UTI, Hypoglycemia Discharge Goals Goal(s): Decrease discomfort, Improve function Activity Recommendations Activity Level: Up Ad Tonia Therapies: Speech Therapy . Additional Information Patient informed of condition: Yes Advance Directives: Yes DNR: Yes Level of Care: Skilled Communicable Disease: No Prognosis: Stable Hendrix Catheter: No Instructions / Follow-Up Instructions / Follow-Up FOLLOWUP WITH FAMILY DOCTOR IN ONE WEEK LAB: BMP IN ONE WEEK AND FOLLOW RESULTS WITH FAMILY DOCTOR. [facility] SUPPRESSIVE ANTIBIOTICS FOR RECURRENT UTI PER FAMILY DOCTOR. HOLD COUMADIN TODAY AND RESUME USUAL DOSE FORM TOMORROW. LAB: PT/INR IN 3-4 DAYS AND ADJUST COUMADIN DOSING. PLEASE MONITOR BLOOD SUGARS AND ADJUST INSULIN REGIMEN. TO START THE ANTIBIOTIC CEFUROXIME FROM TOMORROW SHE GOT TODAY'S DOSE. Current Hospital Diet Patient's current hospital diet: AHA Diet (Heart Healthy), Diabetes Type 2 Diet Discharge Diet Recommended Diet: AHA Diet (Heart Healthy), Diabetes Type 2 Diet Diet Texture: Pureed (blended smooth) Pending Studies Studies pending at discharge: no Physician Orders On Transfer Special Precautions: FALL AND ASPIRATION PRECAUTIONS Vital Signs: EVERY 8HRS Additional Orders: SPEECH RECOMMENDATIONS: Pureed diet, NECTAR thick liquids. Aspiration precautions, NO straws. Fully upright for meals and for 30 minutes after meals are complete. Will need assistance with feeding. Alternate solids and liquids. Oral care after meals. Would benefit from continued speech at the SNF at discharge. Laboratory Results Hemoglobin A1c Test 11/19/16 06:17 Range/Units Estimated Average Glucose 189 mg/dl Hemoglobin A1c 8.2 H 4.5-5.6 % Medical Emergencies . Who to Call and When: Medical Emergencies: If at any time you feel your situation is an emergency, please call 911 immediately. . Non-Emergent Contact Non-Emergency issues call your: Primary Care Provider . . "Provider Documentation" section prepared by Gage Lau. . Core Measure Problem Core Measures: None
[2016-11-20 13:38] VITALS: BP 140/102; PULSE 71; TEMP 36.5; O2SAT 98
--- NOTE | 2016-11-20 19:42 | Progress Note ---
Internal Med Progress Note Date of Service: Nov 20, 2016. Provider Documentation: SUBJECTIVE: patient mostly non verbal form previous strokes and dementia comfortable afebrile plan for d/c today OBJECTIVE: Vital Signs-as noted below Exam: General-alert and awake. Not in distress ENT-Normal hearing Neck-no neck masses supple Lungs-cta b/l no wheezing no crackles present Heart-s1 and s2 heard regular rate and rhythm no murmurs Abdomen-soft bowel sounds present non tender no distension Extremities- edema present Neuro-alert and awake moves extremities Lab data as noted below. ASSESSMENT & PLAN: ALTERED MENTAL STATUS: Metabolic encephalopathy most likely from UTI, and hypoglycemia urine growing gm negative bacilli improving UTI: on Rocephin cx e.coli nand klebsiella-bates sensitive d/jordan on cefuroxime Hypoglycemia on d5ns@ 75ml/hr seen by speech and recommends: Pureed diet, NECTAR thick liquids. improved stopped dextrose DM TYPE II: last HbA1c: 8.4%; repeat in AM placed on iss d/jordan on home meds needs close monitor Left upper extremity swelling ultrasound no dvt or hematoma f/u ct scan unremarkable MILD TROPONIN ELEVATION: likely from CKD, Demand Ischemia will monitor PAROXYSMAL ATRIAL FIBRILLATION: on Carvedilol, Coumadin rate controlled INR 5.5. Held Coumadin inr 3.2 at discharge close followup PREVIOUS CVA: Ct head no acute findings continue home meds. CHRONIC DIASTOLIC CHF: on gentle fluids will monitor for volume overload. stable HYPOTHYROIDISM: on levothyroxine DEMENTIA: likely vascular but records indicate Alzheimer as well at baseline Discharged to SNF Vital Signs: Date Time Temp Pulse Resp B/P (MAP) Pulse Ox O2 Delivery O2 Flow Rate FiO2 11/20/16 13:38 36.5 71 20 98 Room Air 11/20/16 12:00 Room Air 11/20/16 11:10 36.5 71 20 140/102 (115) 98 2.0 11/20/16 08:00 Nasal Cannula 2.0 11/20/16 07:31 36.9 72 20 161/76 (104) 99 2.0 11/20/16 04:00 Nasal Cannula 2.0 11/20/16 03:40 36.7 70 16 94/57 (69) 99 Nasal Cannula 1.5 11/19/16 23:59 Nasal Cannula 2.0 11/19/16 23:40 36.3 70 22 114/54 (74) 97 Nasal Cannula 1.5 11/19/16 20:00 98 Nasal Cannula 2.0 Lab Results: Results Past 24 Hours Test 11/19/16 19:58 11/20/16 07:07 11/20/16 08:01 11/20/16 11:04 Range/Units Bedside Glucose 271 206 316 70-90 mg/dl White Blood Count 5.33 4.8-10.8 K/uL Red Blood Count 4.13 4.2-5.4 M/uL Hemoglobin 12.3 12.0-16.0 g/dL Hematocrit 38.8 37-47 % Mean Corpuscular Volume 93.9 80-100 fL Mean Corpuscular Hemoglobin 29.8 25-34 pg Mean Corpuscular Hemoglobin Concent 31.7 32-36 g/dl Platelet Count 174 130-400 K/uL Mean Platelet Volume 9.6 7.4-10.4 fL Neutrophils (%) (Auto) 68.6 % Lymphocytes (%) (Auto) 12.6 % Monocytes (%) (Auto) 16.1 % Eosinophils (%) (Auto) 2.3 % Basophils (%) (Auto) 0.2 % Neutrophils # (Auto) 3.66 1.4-6.5 K/uL Lymphocytes # (Auto) 0.67 1.2-3.4 K/uL Monocytes # (Auto) 0.86 0.11-0.59 K/uL Eosinophils # (Auto) 0.12 0-0.5 K/uL Basophils # (Auto) 0.01 0-0.2 K/uL RDW Standard Deviation 50.0 36.4-46.3 fL RDW Coefficient of Variation 14.8 11.5-14.5 % Immature Granulocyte % (Auto) 0.2 % Immature Granulocyte # (Auto) 0.01 0.00-0.02 K/uL Prothrombin Time 36.1 9.0-12.0 SECONDS Prothromb Time International Ratio 3.2 0.9-1.1 Sodium Level 144 136-145 mmol/L Potassium Level 4.1 3.5-5.1 mmol/L Chloride Level 113 98-107 mmol/L Carbon Dioxide Level 25 21-32 mmol/L Anion Gap 6.0 3-11 mmol/L Blood Urea Nitrogen 37 7-18 mg/dl Creatinine 1.30 0.60-1.20 mg/dl Est Creatinine Clear Calc Drug Dose 26.7 ml/min Estimated GFR () 42.4 Estimated GFR (Non- 36.6 BUN/Creatinine Ratio 28.7 10-20 Random Glucose 215 70-99 mg/dl Calcium Level 8.8 8.5-10.1 mg/dl
--- NOTE | 2016-11-20 19:45 | Discharge Summary ---
Discharge Summary Date of Service Nov 20, 2016. Discharge Summary Admission Date: Nov 17, 2016 at 11:23 Discharge Date: Nov 20, 2016 [facility] Principal Diagnosis: ENCEPHALOPATHY UTI HYPOGLYCEMIA Secondary Diagnoses/Problems: (1) Alzheimer disease Status: Chronic (2) CAD (coronary artery disease) Status: Chronic (3) CHF (congestive heart failure) Status: Chronic (4) CKD (chronic kidney disease), stage III Status: Chronic (5) CVA (cerebral vascular accident) Status: Chronic (6) History of Coumadin therapy Status: Chronic (7) HLD (hyperlipidemia) Status: Chronic (8) HTN (hypertension) Status: Chronic (9) Hypothyroidism Status: Chronic (10) IDDM (insulin dependent diabetes mellitus) Status: Chronic (11) Pacemaker Status: Chronic (12) PAF (paroxysmal atrial fibrillation) Status: Chronic Procedures: HEAD CT: No acute intracranial abnormality. Atrophy and microvascular ischemic changes. Old basal ganglia and left thalamic lacunar infarcts. CXR: No change in the mild pulmonary basilar congestion without overt edema. LEFT UPER EXT US: 1. No evidence of deep venous thrombosis within the left upper extremity. 2. Moderate amount of nonspecific soft tissue edema without drainable fluid collection. LEFT UPPER EXT CT: 1. Mild amount of subcutaneous inflammatory stranding and skin thickening involves the left upper breast, axillary region and left upper extremity extending to the region of the elbow. No focal phlegmon or drainable collection is identified at this time. 2. Peripheral vascular disease. 3. No acute fracture. Medication Reconciliation New Medications: Cefuroxime Axetil (Ceftin) 250 Mg Tab 250 MG PO BID for 5 Days, #10 TAB Lactobacillus Acidophilus (Lactinex) Tab 1 TAB PO BID for 7 Days, TAB Continued Medications: Acetaminophen (Tylenol) 325 Mg Tab 650 MG PO Q4 PRN for Pain, TAB DO NOT EXCEED 4 GM PER DAY Alum & Mag Hydrox-Simethicone (Rulox) 1 Radha Radha 2 TBS PO QID Atorvastatin (Lipitor) 20 Mg Tab 20 MG PO QPM, TAB Calcium Carbonate-Vitamin D (Oyster Shell Calcium/D) 1 Tab Tab 1 TAB PO DAILY 500-200. BEFORE EVENING MEAL. Carvedilol (Carvedilol) 25 Mg Tab 25 MG PO Q12, #60 TAB Cholecalciferol (Vitamin D3) 1,000 Unit Tab 1000 INTER.UNIT PO QAM, TAB 3 Refills Clopidogrel (Plavix) 75 Mg Tab 75 MG PO DAILY, TAB Dicyclomine Hcl (Dicyclomine Hcl) 10 Mg Cap 10 MG PO TID, CAP 3 Refills Furosemide (Furosemide) 20 Mg Tab 20 MG PO UD, #20 TABS 1 tab po 3 times a week Insulin Aspart (Novolog) 100 Units/Ml Inj 6 UNITS SQ LUNCH Insulin Aspart (Novolog) 100 Units/Ml Inj 4 UNITS SQ BID Insulin Glargine (Lantus) 100 Unit/Ml Inj 12 UNITS SQ HS, VIAL Isosorbide Mononitrate (Isosorbide Mononitrate ER) 60 Mg Tabcr 60 MG PO QAM Latanoprost (Xalatan 0.005% Oph Patti) 0.005 % Patti 1 DROP OPB QPM Levothyroxine Sodium (Synthroid) 50 Mcg Tab 50 MCG PO QAM Lisinopril (Prinivil) 10 Mg Tab 10 MG PO DAILY, TAB Nitroglycerin (Nitrostat) 0.4 Mg Tab 0.4 MG UT PRN, BTL Potassium Chloride (Klor-Con M20) 20 Meq Tabcr 20 MEQ PO QAM Warfarin Sod (Coumadin) 2.5 Mg Tab 2 TAB PO DIRECTED for 90 Days, TAB 3 Refills TAKE 5MG EVERY FRIDAY,Friday,FRIDAY, Friday Warfarin Sod (Coumadin) 2.5 Mg Tab 2.5 MG PO UD, TAB TAKE 2.5MG EVERY Friday AND FRIDAY Admission Information HPI (per Admitting provider): Patient is an 86 yo female who presented to ER from [facility] today for complaints that the patient was more drowsy than normal, and had low blood sugars (72) and thought there might be a left facial droop. From a prior stroke the patient does have a right facial droop and right sided weakness. Patient is mostly non-verbal at baseline and therefore she was unable to provide any history or answer ROS. The patients daughter/POA Etta Frank was contacted and she states that since the last hospitalization the patient has further deteriorated, that she can sometimes say 2-3 words but appears to have to force herself, she sometimes follows commands and sometimes does not, and she sometimes recognizes her family members but sometimes is not able to recognize them. Per her Daughter, the patient was at baseline until last Adonay, and was able to feed herself using both upper extremities but was very "shaky", and the patient is wheelchair and bed bound and unable to transfer/stand. The daughter also noted the patient appeared swollen on Friday. Physical Exam (per Admitting): General Appearance: WD/WN, + mild distress (patient groaning) Head: normocephalic, atraumatic Eyes: PERRL, EOMI, sclerae normal ENT: hearing grossly normal Neck: supple, no JVD, no carotid bruits, trachea midline Respiratory/Chest: chest non-tender, no respiratory distress, no accessory muscle use, + pertinent finding (coarse breath sounds and occasional cough noted ) Cardiovascular: regular rate, rhythm, no gallop, no JVD, normal peripheral pulses Abdomen/GI: normal bowel sounds, non tender, soft, no organomegaly Extremities/Musculoskelatal: normal capillary refill, non-tender, + pedal edema, + pertinent finding (mild contracture of all 4 extremities ) Neurologic/Psych: alert, + facial droop (right side), + motor weakness, + babinski, + pertinent finding (non verbal, not fully compliant with Neuro exam) Skin: normal color, warm/dry, no rash Hospital Course ALTERED MENTAL STATUS: Metabolic encephalopathy most likely from UTI, and hypoglycemia urine growing gm negative bacilli improving UTI: on Rocephin cx e.coli nand klebsiella-bates sensitive d/jordan on cefuroxime Hypoglycemia on d5ns@ 75ml/hr seen by speech and recommends: Pureed diet, NECTAR thick liquids. improved stopped dextrose DM TYPE II: last HbA1c: 8.4%; repeat in AM placed on iss d/jordan on home meds needs close monitor Left upper extremity swelling ultrasound no dvt or hematoma f/u ct scan unremarkable MILD TROPONIN ELEVATION: likely from CKD, Demand Ischemia will monitor PAROXYSMAL ATRIAL FIBRILLATION: on Carvedilol, Coumadin rate controlled INR 5.5. Held Coumadin inr 3.2 at discharge close followup PREVIOUS CVA: Ct head no acute findings continue home meds. CHRONIC DIASTOLIC CHF: on gentle fluids will monitor for volume overload. stable HYPOTHYROIDISM: on levothyroxine DEMENTIA: likely vascular but records indicate Alzheimer as well at baseline Discharged to SNF Total time spent on discharge = 40MINUTES This includes examination of the patient, discharge planning, medication reconciliation, and communication with other providers. Discharge Instructions Discharge Instructions Date of Service Nov 20, 2016. Admission Reason for Admission: Altered Mental Status,Hypoglycemia,Uti Discharge Discharge Diagnosis / Problem: AMS, UTI, Hypoglycemia Discharge Goals Goal(s): Decrease discomfort, Improve function Activity Recommendations Activity Level: Up Ad Tonia Therapies: Speech Therapy . Additional Information Patient informed of condition: Yes Advance Directives: Yes DNR: Yes Level of Care: Skilled Communicable Disease: No Prognosis: Stable Hendrxi Catheter: No Instructions / Follow-Up Instructions / Follow-Up FOLLOWUP WITH FAMILY DOCTOR IN ONE WEEK LAB: BMP IN ONE WEEK AND FOLLOW RESULTS WITH FAMILY DOCTOR. [facility] SUPPRESSIVE ANTIBIOTICS FOR RECURRENT UTI PER FAMILY DOCTOR. HOLD COUMADIN TODAY AND RESUME USUAL DOSE FORM TOMORROW. LAB: PT/INR IN 3-4 DAYS AND ADJUST COUMADIN DOSING. PLEASE MONITOR BLOOD SUGARS AND ADJUST INSULIN REGIMEN. TO START THE ANTIBIOTIC CEFUROXIME FROM TOMORROW SHE GOT TODAY'S DOSE. Current Hospital Diet Patient's current hospital diet: AHA Diet (Heart Healthy), Diabetes Type 2 Diet Discharge Diet Recommended Diet: AHA Diet (Heart Healthy), Diabetes Type 2 Diet Diet Texture: Pureed (blended smooth) Pending Studies Studies pending at discharge: no Physician Orders On Transfer Special Precautions: FALL AND ASPIRATION PRECAUTIONS Vital Signs: EVERY 8HRS Additional Orders: SPEECH RECOMMENDATIONS: Pureed diet, NECTAR thick liquids. Aspiration precautions, NO straws. Fully upright for meals and for 30 minutes after meals are complete. Will need assistance with feeding. Alternate solids and liquids. Oral care after meals. Would benefit from continued speech at the SNF at discharge. Laboratory Results Hemoglobin A1c Test 11/19/16 06:17 Range/Units Estimated Average Glucose 189 mg/dl Hemoglobin A1c 8.2 H 4.5-5.6 % Medical Emergencies . Who to Call and When: Medical Emergencies: If at any time you feel your situation is an emergency, please call 911 immediately. . Non-Emergent Contact Non-Emergency issues call your: Primary Care Provider . . "Provider Documentation" section prepared by Gage Lau. . Core Measure Problem Core Measures: None
== END 2016-11-20 15:55 | DRG 689 ==
LOC: EDBD 08:59 → C.EDB 09:00 → C.2T 11:23 → ENRESERV 12:37
PROVIDERS: ADMIT Internal Medicine; ATTEND Internal Medicine
DX: N39.0 Urinary tract infection, site not specified (principal); G93.41 Metabolic encephalopathy; I50.32 Chronic diastolic (congestive) heart failure; N18.3 Chronic kidney disease, stage 3 (moderate); I12.9 Hypertensive chronic kidney disease with stage 1 through stage 4 chronic kidney disease, or unspecified chronic kidney disease; E11.649 Type 2 diabetes mellitus with hypoglycemia without coma; G30.9 Alzheimer's disease, unspecified; F02.80 Dementia in other diseases classified elsewhere, unspecified severity, without behavioral disturbance, psychotic disturbance, mood disturbance, and anxiety; I25.10 Atherosclerotic heart disease of native coronary artery without angina pectoris; E78.5 Hyperlipidemia, unspecified; E03.9 Hypothyroidism, unspecified; Z79.01 Long term (current) use of anticoagulants; Z86.73 Personal history of transient ischemic attack (TIA), and cerebral infarction without residual deficits; Z90.49 Acquired absence of other specified parts of digestive tract